=== PATIENT | male | born 1965 | race Caucasian/White ===

== ENCOUNTER 2022-08-27 07:59 | Outpatient (REF) | payer BC, SELFPAY | END 2022-08-27 08:00 | disposition home or self-care (01) | LOC: HO.BBR 07:59 | PROVIDERS: Visit Provider Internal Medicine Hematology & Oncology | DX: Z13.89 Encounter for screening for other disorder (principal) ==

== ENCOUNTER 2022-09-03 07:57 | Outpatient (REF) | payer BC, SELFPAY | END 2022-09-03 07:58 | disposition home or self-care (01) | LOC: HO.BBR 07:57 | PROVIDERS: Visit Provider Internal Medicine Hematology & Oncology | DX: Z13.89 Encounter for screening for other disorder (principal) ==

== ENCOUNTER 2022-09-10 08:04 | Outpatient (REF) | payer BC, SELFPAY | END 2022-09-10 08:05 | disposition home or self-care (01) | LOC: HO.BBR 08:04 | PROVIDERS: Visit Provider Internal Medicine Hematology & Oncology | DX: Z13.89 Encounter for screening for other disorder (principal) ==

== ENCOUNTER 2022-09-17 07:58 | Outpatient (REF) | payer BC, SELFPAY | END 2022-09-17 07:59 | disposition home or self-care (01) | LOC: HO.BBR 07:58 | PROVIDERS: Visit Provider Internal Medicine Hematology & Oncology | DX: Z13.89 Encounter for screening for other disorder (principal) ==

== ENCOUNTER 2022-09-24 07:59 | Outpatient (REF) | payer BC, SELFPAY | END 2022-09-24 08:00 | disposition home or self-care (01) | LOC: HO.BBR 07:59 | PROVIDERS: Visit Provider Internal Medicine Hematology & Oncology | DX: Z13.89 Encounter for screening for other disorder (principal) ==

== ENCOUNTER 2022-10-01 07:58 | Outpatient (REF) | payer BC, SELFPAY | END 2022-10-01 07:59 | disposition home or self-care (01) | LOC: HO.BBR 07:58 | PROVIDERS: Visit Provider Internal Medicine Hematology & Oncology | DX: Z13.89 Encounter for screening for other disorder (principal) ==

== ENCOUNTER 2022-10-15 08:00 | Outpatient (REF) | payer BC, SELFPAY | END 2022-10-15 08:01 | disposition home or self-care (01) | LOC: HO.BBR 08:00 | PROVIDERS: Visit Provider Internal Medicine Hematology & Oncology | DX: Z13.89 Encounter for screening for other disorder (principal) ==

== ENCOUNTER 2022-10-29 08:00 | Outpatient (REF) | payer BC, SELFPAY | END 2022-10-29 08:01 | disposition home or self-care (01) | LOC: HO.BBR 08:00 | PROVIDERS: Visit Provider Internal Medicine Hematology & Oncology | DX: Z13.89 Encounter for screening for other disorder (principal) ==

== ENCOUNTER 2022-11-12 08:01 | Outpatient (REF) | payer BC, SELFPAY | END 2022-11-12 08:02 | disposition home or self-care (01) | LOC: HO.BBR 08:01 | PROVIDERS: Visit Provider Internal Medicine Hematology & Oncology | DX: Z13.89 Encounter for screening for other disorder (principal) ==

== ENCOUNTER 2022-11-26 08:01 | Outpatient (REF) | payer BC, SELFPAY | END 2022-11-26 08:02 | disposition home or self-care (01) | LOC: HO.BBR 08:01 | PROVIDERS: Visit Provider Internal Medicine Hematology & Oncology | DX: Z13.89 Encounter for screening for other disorder (principal) ==

== ENCOUNTER 2022-12-10 10:53 | Outpatient (REF) | payer BC, SELFPAY | END 2022-12-10 10:54 | disposition home or self-care (01) | LOC: HO.BBR 10:53 | PROVIDERS: Visit Provider Internal Medicine Hematology & Oncology | DX: Z13.89 Encounter for screening for other disorder (principal) ==

== ENCOUNTER 2022-12-24 08:37 | Outpatient (REF) | payer BC, SELFPAY | END 2022-12-24 08:38 | disposition home or self-care (01) | LOC: HO.BBR 08:37 | PROVIDERS: Visit Provider Internal Medicine Hematology & Oncology | DX: Z13.89 Encounter for screening for other disorder (principal) ==

== ENCOUNTER 2023-01-07 08:00 | Outpatient (REF) | payer BC, SELFPAY | END 2023-01-07 08:01 | disposition home or self-care (01) | LOC: HO.BBR 08:00 | PROVIDERS: Visit Provider Internal Medicine Hematology & Oncology | DX: Z13.89 Encounter for screening for other disorder (principal) ==

== ENCOUNTER 2023-01-21 07:59 | Outpatient (REF) | payer BC, SELFPAY | END 2023-01-21 08:00 | disposition home or self-care (01) | LOC: HO.BBR 07:59 | PROVIDERS: Visit Provider Internal Medicine Hematology & Oncology | DX: Z13.89 Encounter for screening for other disorder (principal) ==

== ENCOUNTER 2023-03-04 07:57 | Outpatient (REF) | payer BC, SELFPAY | END 2023-03-04 07:58 | disposition home or self-care (01) | LOC: HO.BBR 07:57 | PROVIDERS: Visit Provider Internal Medicine Hematology & Oncology | DX: Z13.89 Encounter for screening for other disorder (principal) ==

== ENCOUNTER 2023-04-15 07:56 | Outpatient (REF) | payer BC, SELFPAY | END 2023-04-15 07:57 | disposition home or self-care (01) | LOC: HO.BBR 07:56 | PROVIDERS: Visit Provider Internal Medicine Hematology & Oncology | DX: Z13.89 Encounter for screening for other disorder (principal) ==

== ENCOUNTER 2023-05-13 08:02 | Outpatient (REF) | payer BC, SELFPAY | END 2023-05-13 08:03 | disposition home or self-care (01) | LOC: HO.BBR 08:02 | PROVIDERS: Visit Provider Internal Medicine Hematology & Oncology | DX: Z13.89 Encounter for screening for other disorder (principal) ==

== ENCOUNTER 2023-06-10 10:54 | Outpatient (REF) | payer BC, SELFPAY | END 2023-06-10 10:55 | disposition home or self-care (01) | LOC: HO.BBR 10:54 | PROVIDERS: Visit Provider Internal Medicine Hematology & Oncology | DX: Z13.89 Encounter for screening for other disorder (principal) ==

== ENCOUNTER 2023-07-15 08:00 | Outpatient (REF) | payer BC, SELFPAY | END 2023-07-15 08:01 | disposition home or self-care (01) | LOC: HO.BBR 08:00 | PROVIDERS: Visit Provider Internal Medicine Hematology & Oncology | DX: Z13.89 Encounter for screening for other disorder (principal) ==

== ENCOUNTER 2023-08-19 08:04 | Outpatient (REF) | payer BC, SELFPAY | END 2023-08-19 08:05 | disposition home or self-care (01) | LOC: HO.BBR 08:04 | PROVIDERS: Visit Provider Internal Medicine Hematology & Oncology | DX: Z13.89 Encounter for screening for other disorder (principal) ==

== ENCOUNTER 2023-09-16 08:05 | Outpatient (REF) | payer BC, SELFPAY | END 2023-09-16 08:06 | disposition home or self-care (01) | LOC: HO.BBR 08:05 | PROVIDERS: Visit Provider Internal Medicine Hematology & Oncology | DX: Z13.89 Encounter for screening for other disorder (principal) ==

== ENCOUNTER 2023-10-14 08:02 | Outpatient (REF) | payer BC, SELFPAY | END 2023-10-14 08:03 | disposition home or self-care (01) | LOC: HO.BBR 08:02 | PROVIDERS: Visit Provider Internal Medicine Hematology & Oncology | DX: Z13.89 Encounter for screening for other disorder (principal) ==

== ENCOUNTER 2023-11-18 09:58 | Outpatient (REF) | payer BC, SELFPAY | END 2023-11-18 09:59 | disposition home or self-care (01) | LOC: HO.BBR 09:58 | PROVIDERS: Visit Provider Internal Medicine Hematology & Oncology | DX: Z13.89 Encounter for screening for other disorder (principal) ==

== ENCOUNTER 2023-12-16 07:59 | Outpatient (REF) | payer BC, SELFPAY | END 2023-12-16 08:00 | disposition home or self-care (01) | LOC: HO.BBR 07:59 | PROVIDERS: Visit Provider Hospitalist | DX: Z13.89 Encounter for screening for other disorder (principal) ==

== ENCOUNTER 2024-01-13 10:06 | Outpatient (REF) | payer BC, SELFPAY | END 2024-01-13 10:07 | disposition home or self-care (01) | LOC: HO.BBR 10:06 | PROVIDERS: Visit Provider Hospitalist | DX: Z13.89 Encounter for screening for other disorder (principal) ==

== ENCOUNTER 2024-02-13 08:09 | Outpatient (REF) | payer BC, SELFPAY | END 2024-02-13 08:10 | disposition home or self-care (01) | LOC: HO.BBR 08:09 | PROVIDERS: Visit Provider Hospitalist | DX: Z13.89 Encounter for screening for other disorder (principal) ==

== ENCOUNTER 2024-03-16 09:53 | Outpatient (REF) | payer BC, SELFPAY | END 2024-03-16 09:54 | disposition home or self-care (01) | LOC: HO.BBR 09:53 | PROVIDERS: Visit Provider Hospitalist | DX: Z13.89 Encounter for screening for other disorder (principal) ==

== ENCOUNTER 2024-04-20 10:56 | Outpatient (REF) | payer BC, SELFPAY | END 2024-04-20 10:57 | disposition home or self-care (01) | LOC: HO.BBR 10:56 | PROVIDERS: Visit Provider Hospitalist | DX: Z13.89 Encounter for screening for other disorder (principal) ==

== ENCOUNTER 2024-05-18 09:59 | Outpatient (REF) | payer BC, SELFPAY | END 2024-05-18 10:00 | disposition home or self-care (01) | LOC: HO.BBR 09:59 | PROVIDERS: Visit Provider Hospitalist | DX: Z13.89 Encounter for screening for other disorder (principal) ==

== ENCOUNTER 2024-06-15 08:12 | Outpatient (REF) | payer BC, SELFPAY | END 2024-06-15 08:13 | disposition home or self-care (01) | LOC: HO.BBR 08:12 | PROVIDERS: Visit Provider Hospitalist | DX: Z13.89 Encounter for screening for other disorder (principal) ==

== ENCOUNTER 2024-07-13 08:04 | Outpatient (REF) | payer BC, SELFPAY | END 2024-07-13 08:05 | disposition home or self-care (01) | LOC: HO.BBR 08:04 | PROVIDERS: Visit Provider Hospitalist | DX: Z13.89 Encounter for screening for other disorder (principal) ==

== ENCOUNTER 2024-08-10 09:10 | Outpatient (REF) | payer BC, SELFPAY | END 2024-08-10 09:11 | disposition home or self-care (01) | LOC: HO.BBR 09:10 | PROVIDERS: Visit Provider Hospitalist | DX: Z13.89 Encounter for screening for other disorder (principal) ==

== ENCOUNTER 2024-09-07 08:06 | Outpatient (REF) | payer BC, SELFPAY ==
--- OUTSIDE RECORDS SUMMARY | 2024-09-07 08:08 | XMS_ITS | Data Portability ---
Author Organization [facility], Main Office Address [address] [place] [address] [place] [id number] Care Team Providers Care Early Childhood Education Instructor Name Role Phone KATIE GARCIA Primary Care Provider [phone] KATINA ROBERTS Contact Manager REINALDO SOL Junior Administrative Assistant [phone] PRASANTH POND Traffic Analyst UNIQUE JOHNSON Software Engineer Web Services Assessment No assessment recorded. Plan of Treatment Reminders Order Date Submit Date Provider Last Modified By Organization Details Last Modified Time Details Appointments PE EST 2024 08:45A M Katie Garcia PAGenie Not available Not available Not available Lab HbA1c (hemog lobin A1c), blood 2024 025 pmadden [facility], [address], [address], 09/05/2024 16:37:57 BMP, serum or plasma 2024 025 pmadden [facility], [facility] [address], [address], 09/05/2024 16:37:57 rapid SARS CoV 2 Ag, QL IA, respir atory specim en 2023 024 pmadden In-Office Order, Internal Use Only DO Not Attach Compendium DO Not Attach Compendium, Do Not Delete/merge, [id number] 07/11/2024 12:04:23 rapid flu (A+B) 2023 024 MIRIAN In-Office Order, Internal Use Only DO Not Attach Compendium DO Not Attach Compendium, Do Not Delete/merge, [id number] 07/11/2024 12:13:24 HbA1c (hemog lobin A1c), blood 2023 024 [facility], [address], [place], [address], 07/03/2024 14:06:52 PSA, total, serum or plasma 2023 024 [facility], [address], [address], [place], [address], 07/03/2024 14:06:53 lipid panel, serum 2023 024 [facility], [address], [address], [place], [address], 07/03/2024 14:06:51 CMP, serum or plasma 2023 024 [facility], [address], [place], [address], 07/03/2024 14:06:50 CBC w/ auto diff 2023 024 [facility], [address], [place], [address], 07/03/2024 14:06:49 Referral otolar yngolo gist referr al 2023 024 [facility] , [address], [address], [place], [address], 08/13/2024 08:19:13 nutrit ionist /dieti sarbjit referr al 2023 024 [email or web address] Not available 03/05/2024 10:02:15 Procedures None record ed. Surgeries None record ed. Imaging US, echoca rdiogr am - please compar e c cardia c mri 3.6.23 2024 025 pmadden Not available 09/06/2024 13:58:53 Medication Orders amoxic illin 875 mg-pot assium clavul anate 125 mg tablet 2023 025 [facility]acy #[id number], [address] [place], [address], 09/05/2024 16:10:07 lansop razole 30 mg capsul e,renuka yed releas e 2023 024 [email or web address] Not available 09/29/2023 14:43:10 lisino pril 5 mg tablet 2022 023 [facility]arm[facility] #[id number], [address] [place], [address], 03/24/2023 16:31:04 lansop razole 30 mg capsul e,renuka yed releas e 2022 023 [email or web address] Not available 03/25/2023 08:34:52 Patient Targets Encounter Date Encounter Id Patient Goals Patient Target Last Modified By Organization Details Last Modified Time 03/24/2023 [id number] 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 and to monitor dietary sodium. Will monitor home blood pressures and bring readings to appointments. Patient preferences and goals incorporated in plan and updated/modified as needed to reflect progress toward goal.Pt agrees to follow low fat diet, avoid saturated fats , decrease carbohydrate intake to 45 - 50 gm per meal , pt agrees to develop a regular pattern of exercise such as walking 30 minutes a day 3 times a week, Pt will keep a record of exercise and activity level Patient preferences and goals incorporated in plan and updated/modified as needed to reflect progress toward goal. 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 and to monitor dietary sodium. Will monitor home blood pressures and bring readings to appointments. Patient preferences and goals incorporated in plan and updated/modified as needed to reflect progress toward goal.Pt agrees to follow low fat diet, avoid saturated fats , decrease carbohydrate intake to 45 - 50 gm per meal , pt agrees to develop a regular pattern of exercise such as walking 30 minutes a day 3 times a week, Pt will keep a record of exercise and activity level Patient preferences and goals incorporated in plan and updated/modified as needed to reflect progress toward goal. 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 Loss % 5 Not available Not available Not available Ongoing of LDL Direct <100 Not available Not available Not available Ongoing of LDL Direct yearly Not available Not available Not available Pt agrees to follow low fat diet, avoid saturated fats , decrease carbohydrate intake to 45 - 50 gm per meal , pt agrees to develop a regular pattern of exercise such as walking 30 minutes a day 3 times a week, Pt will keep a record of exercise and activity level Patient preferences and goals incorporated in plan and updated/modified as needed to reflect progress toward goal.Pt advised and agrees to eat a low salt low fat diet; to do moderate exercise (such as walking) 150 minutes per week; to limit alcohol intake (goal of 2 drinks per day or less for men or 1 for woman). and to monitor dietary sodium. Will monitor home blood pressures and bring readings to appointments. Patient preferences and goals incorporated in plan and updated/modified as needed to reflect progress toward goal.Pt advised and agrees to work on self-monitoring behaviors; begin an appropriate diet for weight loss (such as a low carbohydrate diet), to do moderate exercise (such as walking) for approximately 150 minutes per week; and to identify desirable and timely rewards that will reinforce achievement of specific weight loss goals. pmadden Not available 03/05/2024 09:28:32 09/05/2024 [id number] penitentiary goal of Blood Pressure 140 / 90 Not available Not available Not available penitentiary goal of Exercise level Not available Not available Not available penitentiary goal of Tobacco Smoking Status Not available Not available Not available Ongoing of LDL Direct <100 Not available Not available Not available Ongoing of LDL Direct yearly Not available Not available Not available Pt advised and agrees to eat a low salt low fat diet; to do moderate exercise (such as walking) 150 minutes per week; to limit alcohol intake (goal of 2 drinks per day or less for men or 1 for woman). and to monitor dietary sodium. Will monitor home blood pressures and bring readings to appointments. Patient preferences and goals incorporated in plan and updated/modified as needed to reflect progress toward goal.Pt agrees to follow low fat diet, avoid saturated fats , decrease carbohydrate intake to 45 - 50 gm per meal , pt agrees to develop a regular pattern of exercise such as walking 30 minutes a day 3 times a week, Pt will keep a record of exercise and activity level Patient preferences and goals incorporated in plan and updated/modified as needed to reflect progress toward goal. pmadden Not available 09/05/2024 20:38:17 Patient Instructions Encounter Date Encounter Id Patient Instructions Last Modified By Organization Details Last Modified Time 03/24/2023 [id number] high blood pressure: care instructions pmadden Not available 03/24/2023 16:35:00 dash diet: care instructions pmadden Not available 03/24/2023 16:35:00 low sodium diet (2,000 milligram): care instructions pmadden Not available 03/24/2023 16:35:00 encouraged pt to check outstanding labs as directed Medications (OTC, herbal therapies, supplements) reviewed and reconciled with patient and or caregiver, including potential side effects, drug interactions, instructions, and the consequences of not taking medication. Reviewed potential barriers to medication adherence, such as side effects from medication or cost of medication. pmadden Not available 03/24/2023 17:01:13 09/28/2023 [id number] Medications (OTC , herbal therapies, supplements) reviewed and reconciled with patient and or caregiver, including potential side effects, drug interactions, instructions, and the consequences of not taking medication. Reviewed potential barriers to medication adherence, such as side effects from medication or cost of medication. pmadden Not available 09/28/2023 17:20:36 03/05/2024 [id number] Prostate Cancer Screening pmadden Not available 03/05/2024 09:29:40 Well Visit 50 to 65: Care Instructions pmadden Not available 03/05/2024 09:29:41 starting a weigh t loss plan: care instructions pmadden Not available 03/05/2024 09:29:41 Nutrition Referral and Weight Management Follow-up Information pmadden Not available 03/05/2024 09:29:41 Medications (OTC , herbal therapies, supplements) reviewed and reconciled with patient and or caregiver, including potential side effects, drug interactions, instructions, and the consequences of not taking medication. Reviewed potential barriers to medication adherence, such as side effects from medication or cost of medication. pmadden Not available 03/05/2024 09:29:04 07/11/2024 [id number] Acute Sinusitis: Care Instructions pmadden Not available 07/11/2024 12:37:21 saline nasal washes: care instructions pmadden Not available 07/11/2024 12:37:21 eustachian tube problems: care instructions pmadden Not available 07/11/2024 12:37:21 Follow up if no improvement or if symptoms worsen. pmadden Not available 07/11/2024 13:16:38 09/05/2024 [id number] Medications (OTC , herbal therapies, supplements) reviewed and reconciled with patient and or caregiver, including potential side effects, drug interactions, instructions, and the consequences of not taking medication. Reviewed potential barriers to medication adherence, such as side effects from medication or cost of medication. 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 for Body mass index 30+ - obesity Referring Physician: Katie Garcia, Internal Medicine, Encounter Date: 03/05/2024 All Source Intelligence Analyst Referral fo r Deviated nasal septum Referring Physician: Katie Garcia, Internal Medicine, Encounter Date: 07/11/2024 Results Created Date Observation Date Name Description Value Unit Range Abnormal Flag Note LastModifiedBy Organization Detail LastModifiedTime 09/24/19 24 09/24/2023 LIPID PANEL results Ana Luisa ash Order Not Available [facility] [address] [place], [address], 09/24/2023 07:28:25 09/24/19 24 09/24/2023 COMPR EHENS CINDY METAB OLIC PANL glucose 111 mg/dL (70-99 ) high Not Available [facility] [address] [place], [address], 09/24/2023 09:22:44 09/24/19 24 09/24/2023 COMPR EHENS CINDY METAB OLIC PANL BUN 22 mg/dL (6-20) high Not Available [facility] [address] [place], [address], 09/24/2023 09:22:44 09/24/19 24 09/24/2023 COMPR EHENS CINDY METAB OLIC PANL creatinine 1.2 mg/dL (0.7-1 .2) Not Available [facility] [address] [place], [address], 09/24/2023 09:22:44 09/24/19 24 09/24/2023 COMPR EHENS CINDY METAB OLIC PANL sodium 143 mmol/ L (133-1 45) Not Available [facility] [address] [place], [address], 09/24/2023 09:22:44 09/24/19 24 09/24/2023 COMPR EHENS CINDY METAB OLIC PANL potassium 4.2 mmol/ L (3.6-5 .2) Not Available [facility] [address] [place], [address], 09/24/2023 09:22:44 09/24/19 24 09/24/2023 COMPR EHENS CINDY METAB OLIC PANL chloride 108 mmol/ L (98-10 7) high Not Available [facility] [address] [place], [address], 09/24/2023 09:22:44 09/24/19 24 09/24/2023 COMPR EHENS CINDY METAB OLIC PANL bicarbonate 22 mmol/ L (22-29 ) Not Available [facility] [address] [place], [address], 09/24/2023 09:22:44 09/24/19 24 09/24/2023 COMPR EHENS CINDY METAB OLIC PANL anion gap 13 (4-17) Not Available [facility] [address] [place], [address], 09/24/2023 09:22:44 09/24/19 24 09/24/2023 COMPR EHENS CINDY METAB OLIC PANL albumin 4.4 gm/dL (3.4-4 .8) Not Available [facility] [address] [place], [address], 09/24/2023 09:22:44 09/24/19 24 09/24/2023 COMPR EHENS CINDY METAB OLIC PANL calcium 9.6 mg/dL (8.6-1 0.5) Not Available [facility] [address] [place], [address], 09/24/2023 09:22:44 09/24/19 24 09/24/2023 COMPR EHENS CINDY METAB OLIC PANL bilirubin,to moy 0.7 mg/dL (0-1.2 ) Not Available [facility] [address] [place], [address], 09/24/2023 09:22:44 09/24/19 24 09/24/2023 COMPR EHENS CINDY METAB OLIC PANL total protein 6.9 gm/dL (6.2-8 .2) Not Available [facility] [address] [place], [address], 09/24/2023 09:22:44 09/24/19 24 09/24/2023 COMPR EHENS CINDY METAB OLIC PANL Ag ratio 1.8 Not Available [facility] [address] [place], [address], 09/24/2023 09:22:44 09/24/19 24 09/24/2023 COMPR EHENS CINDY METAB OLIC PANL AST 18 U/L (0-40) Not Available [facility] [address], [address], 09/24/2023 09:22:44 09/24/19 24 09/24/2023 COMPR EHENS CINDY METAB OLIC PANL alk phos 105 U/L (40-12 9) Not Available [facility] [address] [place], [address], 09/24/2023 09:22:44 09/24/19 24 09/24/2023 COMPR EHENS CINDY METAB OLIC PANL ALT 19 U/L (0-41) Not Available [facility] [address] [place], [address], 09/24/2023 09:22:44 09/24/19 24 09/24/2023 COMPR EHENS CINDY METAB OLIC PANL estimated GFR creatinine 71 mL/mi n/1.7 3_M2 Creat inine based estim ated glome rular filtr ation (eGFR ) in adult s is calcu lated using the Natio nal Kidne y Found ation recom brandy d 2020 CKD-E PI equat ion. Estim ates GFR from serum creat inine , age and sex. Not Available [facility] [address] [place], [address], 09/24/2023 09:22:44 09/24/19 24 09/24/2023 LIPID PANEL cholesterol, total 168 mg/dL (<200) Not Available [facility] [address] [place], [address], 09/24/2023 09:22:45 09/24/19 24 09/24/2023 LIPID PANEL triglyceride 71 mg/dL (<150) Not Available [facility] [address] [place], [address], 09/24/2023 09:22:45 09/24/19 24 09/24/2023 LIPID PANEL HDL chol 40 mg/dL (>39) Not Available [facility] [address] [place], [address], 09/24/2023 09:22:45 09/24/19 24 09/24/2023 LIPID PANEL LDL cholesterol, calculated 114 mg/dL (0-130 ) Not Available [facility] [address] [place], [address], 09/24/2023 09:22:45 09/24/19 24 09/24/2023 LIPID PANEL non HDL cholesterol (calc) 128 mg/dL (<160) Not Available [facility] [address] [place], [address], 09/24/2023 09:22:45 09/24/19 24 09/24/2023 CK,TO MOY ONLY CK,total only 108 U/L (0-310 ) Not Available [facility] [address] [place], [address], 09/24/2023 09:22:46 09/24/19 24 09/24/2023 HEMOG LOBIN A1C hemoglobin A1C 5.3 % (4.0-5 .6) MONIT ORING : In known diabe tic patie nts, hemog lobin A1c targe ts shoul d be discu ssed with healt h care provi carole. DIAGN OSTIC USE: The Ameri can Diabe cat Assoc iatio n (ADA) and the World Healt h Organ izati on (WHO) recom mend the use of HbA1c to diagn ose diabe cat using a thres hold of 6.5%. Patie nts who have an HbA1c betwe en 5.7% and 6.4% are consi dered at incre ased risk for devel oping diabe cat in the futur e. CAUTI ON: False ly low HbA1c resul ts may be obser alex in patie nts with hemol ytic anemi a, homoz ygous forms of abnor mal hemog lobin (e.g. SS, CC, SC), pregn susan, recen t blood loss or hemog lobin F great er than 7%. Fruct osami ne may be used as an alter estefanía test in these cases . REFER ENCE: ADA: Stand ards of Medic al Care in Diabe cat 2019, The Journ al of Clini tyler and Appli ed Resea rch and Educa tion Volum e 43, Suppl ement 1 Not Available [facility] [address], [place], [address], 09/24/2023 10:29:34 07/01/20 24 07/02/2024 CBC WITH DIFFE RENTI AL/PL ATELE T WBC 5.9 x10e3 /uL 3.4-10 .8 normal Not Available [facility] ([facility]) [address] [place], [address], 07/03/2024 14:06:49 07/01/20 24 07/02/2024 CBC WITH DIFFE RENTI AL/PL ATELE T RBC 4.40 x10e6 /uL 4.14-5 .80 normal Not Available [facility] ([facility]) [address] [place], [address], 07/03/2024 14:06:49 07/01/20 24 07/02/2024 CBC WITH DIFFE RENTI AL/PL ATELE T hemoglobin 12.3 g/dL 13.0-1 7.7 below low normal Not Available [facility] ([facility]) [address] [place], [address], 07/03/2024 14:06:49 07/01/20 24 07/02/2024 CBC WITH DIFFE RENTI AL/PL ATELE T hematocrit 38.3 % 37.5-5 1.0 normal Not Available [facility] ([facility]) [address] [place], [address], 07/03/2024 14:06:49 07/01/20 24 07/02/2024 CBC WITH DIFFE RENTI AL/PL ATELE T MCV 87 fL 79-97 normal Not Available [facility] ([facility]) [address] [facility], [place], [address], 07/03/2024 14:06:49 07/01/20 24 07/02/2024 CBC WITH DIFFE RENTI AL/PL ATELE T MCH 28.0 pg 26.6-3 3.0 normal Not Available [facility] ([facility]) [address] [facility], [place], [address], 07/03/2024 14:06:49 07/01/20 24 07/02/2024 CBC WITH DIFFE RENTI AL/PL ATELE T MCHC 32.1 g/dL 31.5-3 5.7 normal Not Available [facility] ([facility]) [address] [facility], [place], [address], 07/03/2024 14:06:49 07/01/20 24 07/02/2024 CBC WITH DIFFE RENTI AL/PL ATELE T RDW 13.1 % 11.6-1 5.4 Not Available [facility] ([facility]) [address] [facility], [place], [address], 07/03/2024 14:06:49 07/01/20 24 07/02/2024 CBC WITH DIFFE RENTI AL/PL ATELE T platelets 323 x10e3 /uL 150-45 0 normal Not Available [facility] ([facility]) [address] [facility], [place], [address], 07/03/2024 14:06:49 07/01/20 24 07/02/2024 CBC WITH DIFFE RENTI AL/PL ATELE T neutrophils 60 % not estab. normal Not Available [facility] ([facility]) [address] [facility], [place], [address], 07/03/2024 14:06:49 12/08/20 24 07/02/2024 CBC WITH DIFFE RENTI AL/PL ATELE T lymphs 29 % not estab. normal Not Available [facility] ([facility]) [address] [facility], [place], [address], 07/03/2024 14:06:49 07/01/20 24 07/02/2024 CBC WITH DIFFE RENTI AL/PL ATELE T monocytes 5 % not estab. normal Not Available [facility] ([facility]) [address] [facility], [place], [address], 07/03/2024 14:06:49 07/01/20 24 07/02/2024 CBC WITH DIFFE RENTI AL/PL ATELE T eos 4 % not estab. normal Not Available [facility] ([facility]) [address] [facility], [place], [address], 07/03/2024 14:06:49 07/01/20 24 07/02/2024 CBC WITH DIFFE RENTI AL/PL ATELE T basos 1 % not estab. normal Not Available [facility] ([facility]) [address] [facility], [place], [address], 07/03/2024 14:06:49 07/01/20 24 07/02/2024 CBC WITH DIFFE RENTI AL/PL ATELE T immature cells PROGRAM EVALUATION CONSULTANT Not Available [facility] ([facility]) [address] [facility], [place], [address], 07/03/2024 14:06:49 07/01/20 24 07/02/2024 CBC WITH DIFFE RENTI AL/PL ATELE T neutrophils (absolute) 3.6 x10e3 /uL 1.4-7. 0 normal Not Available [facility] ([facility]) [address] [facility], [place], [address], 07/03/2024 14:06:49 07/01/20 24 07/02/2024 CBC WITH DIFFE RENTI AL/PL ATELE T lymphs (absolute) 1.7 x10e3 /uL 0.7-3. 1 normal Not Available [facility] ([facility]) [address] [facility], [place], [address], 07/03/2024 14:06:49 07/01/20 24 07/02/2024 CBC WITH DIFFE RENTI AL/PL ATELE T monocytes(ab solute) 0.3 x10e3 /uL 0.1-0. 9 normal Not Available [facility] ([facility]) [address] [facility], [place], [address], 07/03/2024 14:06:49 07/01/20 24 07/02/2024 CBC WITH DIFFE RENTI AL/PL ATELE T eos (absolute) 0.2 x10e3 /uL 0.0-0. 4 normal Not Available [facility] ([facility]) [address] [facility], [place], [address], 07/03/2024 14:06:49 07/01/20 24 07/02/2024 CBC WITH DIFFE RENTI AL/PL ATELE T baso (absolute) 0.0 x10e3 /uL 0.0-0. 2 normal Not Available [facility] ([facility]) [address] [facility], [place], [address], 07/03/2024 14:06:49 07/01/20 24 07/02/2024 CBC WITH DIFFE RENTI AL/PL ATELE T immature granulocytes 1 % not estab. Not Available [facility] ([facility]) [address] [place], [address], 07/03/2024 14:06:49 07/01/20 24 07/02/2024 CBC WITH DIFFE RENTI AL/PL ATELE T immature grans (abs) 0.1 x10e3 /uL 0.0-0. 1 Not Available [facility] ([facility]) [address] [place], [address], 07/03/2024 14:06:49 07/01/20 24 07/02/2024 CBC WITH DIFFE RENTI AL/PL ATELE T NRBC PROGRAM EVALUATION CONSULTANT Not Available [facility] ([facility]) [address] [facility], [place], [address], 07/03/2024 14:06:49 07/01/20 24 07/02/2024 CBC WITH DIFFE RENTI AL/PL ATELE T hematology comments: PROGRAM EVALUATION CONSULTANT Not Available [facility] ([facility]) [address] [facility], [place], [address], 07/03/2024 14:06:49 07/01/20 24 07/03/2024 COMP. METAB OLIC PANEL (14) glucose 108 mg/dL 70-99 above high normal Not Available [facility] ([facility]) [address] [facility], [place], [address], 07/03/2024 14:06:50 07/01/20 24 07/03/2024 COMP. METAB OLIC PANEL (14) BUN 20 mg/dL 6-24 normal Not Available [facility] ([facility]) [address] [facility], [place], [address], 07/03/2024 14:06:50 07/01/20 24 07/03/2024 COMP. METAB OLIC PANEL (14) creatinine 1.17 mg/dL 0.76-1 .27 normal Not Available [facility] ([facility]) [address] [facility], [place], [address], 07/03/2024 14:06:50 07/01/20 24 07/03/2024 COMP. METAB OLIC PANEL (14) eGFR 72 mL/mi n/1.7 3 >59 normal Not Available [facility] ([facility]) [address] [facility], [place], [address], 07/03/2024 14:06:50 07/01/20 24 07/03/2024 COMP. METAB OLIC PANEL (14) BUN/creatini ne ratio 17 9-20 normal Not Available [facility] ([facility]) [address] [place], [address], 07/03/2024 14:06:50 07/01/20 24 07/03/2024 COMP. METAB OLIC PANEL (14) sodium 140 mmol/ L 134-14 4 normal Not Available [facility] ([facility]) [address] [place] [place], [address], 07/03/2024 14:06:50 07/01/20 24 07/03/2024 COMP. METAB OLIC PANEL (14) potassium 4.6 mmol/ L 3.5-5. 2 normal Not Available [facility] ([facility]) [address] [place], [address], 07/03/2024 14:06:50 07/01/20 24 07/03/2024 COMP. METAB OLIC PANEL (14) chloride 105 mmol/ L 96-106 normal Not Available [facility] ([facility]) [address] [place], [address], 07/03/2024 14:06:50 07/01/20 24 07/03/2024 COMP. METAB OLIC PANEL (14) carbon dioxide, total 23 mmol/ L 20-29 normal Not Available [facility] ([facility]) [address] [facility] [place], [address], 07/03/2024 14:06:50 07/01/20 24 07/03/2024 COMP. METAB OLIC PANEL (14) calcium 9.2 mg/dL 8.7-10 .2 normal Not Available [facility] ([facility]) [address] [place] [place], [address], 07/03/2024 14:06:50 07/01/20 24 07/03/2024 COMP. METAB OLIC PANEL (14) protein, total 6.8 g/dL 6.0-8. 5 normal Not Available [facility] ([facility]) [address] [facility] [place], [address], 07/03/2024 14:06:50 07/01/20 24 07/03/2024 COMP. METAB OLIC PANEL (14) albumin 4.0 g/dL 3.8-4. 9 normal Not Available [facility] ([facility]) [address] [place], [address], 07/03/2024 14:06:50 07/01/20 24 07/03/2024 COMP. METAB OLIC PANEL (14) globulin, total 2.8 g/dL 1.5-4. 5 Not Available [facility] ([facility]) [address] [facility] [place], [address], 07/03/2024 14:06:50 07/01/20 24 07/03/2024 COMP. METAB OLIC PANEL (14) bilirubin, total 0.3 mg/dL 0.0-1. 2 normal Not Available [facility] ([facility]) [address] [facility], [place], [address], 07/03/2024 14:06:50 07/01/20 24 07/03/2024 COMP. METAB OLIC PANEL (14) alkaline phosphatase 103 IU/L 44-121 normal Not Available [facility] ([facility]) [address] [place], [address], 07/03/2024 14:06:50 07/01/20 24 07/03/2024 COMP. METAB OLIC PANEL (14) AST (SGOT) 17 IU/L 0-40 normal Not Available [facility] ([facility]) [address] [place], [address], 07/03/2024 14:06:50 07/01/20 24 07/03/2024 COMP. METAB OLIC PANEL (14) ALT (SGPT) 15 IU/L 0-44 normal Not Available [facility] ([facility]) [address] [place], [address], 07/03/2024 14:06:50 07/01/20 24 07/03/2024 LIPID PANEL cholesterol, total 142 mg/dL 100-19 9 normal Not Available [facility] ([facility]) [address] [place], [address], 07/03/2024 14:06:51 07/01/20 24 07/03/2024 LIPID PANEL triglyceride s 55 mg/dL 0-149 normal Not Available [facility] ([facility]) [address] [place], [address], 07/03/2024 14:06:51 07/01/20 24 07/03/2024 LIPID PANEL HDL cholesterol 36 mg/dL >39 below low normal Not Available [facility] ([facility]) [address] [place], [address], 07/03/2024 14:06:51 07/01/20 24 07/03/2024 LIPID PANEL VLDL cholesterol tyler 12 mg/dL 5-40 Not Available [facility] ([facility]) [address] [place], [address], 07/03/2024 14:06:51 07/01/20 24 07/03/2024 LIPID PANEL LDL chol calc ([facility]) 94 mg/dL 0-99 Not Available [facility] ([facility]) [address] [place], [address], 07/03/2024 14:06:51 07/01/20 24 07/03/2024 LIPID PANEL LDL calc comment: 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 6 normal Predi abete s: 5.7 - 6.4 Diabe cat: >6.4 Glyce ivet contr ol for adult s with diabe cat: <7.0 Not Available [facility] ([facility]) [address] [facility], [place], [address], 07/03/2024 14:06:52 07/01/20 24 07/03/2024 PROST ATE-S PECIF IC AG prostate specific Ag 1.0 NG/mL 0.0-4. 0 normal René ECLIA metho dolog y. Accor ding to the Ameri can [employer] g[employer] iatio n, Serum PSA shoul d decre ase and remai n at undet ectab le level s after radic al prost atect adelita. The AUA defin es bioch emica l recur rence as an initi al PSA value 0.2 ng/mL or great er follo wed by a subse quent confi rmato ry PSA value 0.2 ng/mL or great er. Value s obtai bi with diffe rent assay metho ds or kits canno t be used inter nicholas ct . Resul ts canno t be inter prete d as absol garth evide nce of the prese nce or absen ce of sunshine bourgeois se. Not Available [facility] ([facility]) [address] [facility], [place], [address], 07/03/2024 14:06:53 07/11/20 24 07/11/2024 rapid flu (A+B) Flu A negati ve Not Available In-Office Order Internal Use Only DO Not Attach Compendium DO Not Attach Compendium, Do Not Delete/merge, [id number] 07/11/2024 11:40:25 07/11/20 24 07/11/2024 rapid flu (A+B) Flu B negati ve Not Available In-Office Order Internal Use Only DO Not Attach Compendium DO Not Attach Compendium, Do Not Delete/merge, [id number] 07/11/2024 11:40:25 07/11/20 24 07/11/2024 rapid SARS CoV 2 Ag, QL IA, respi rator y speci men RAPID SARS COV 2 negati ve Not Available In-Office Order Internal Use Only DO Not Attach Compendium DO Not Attach Compendium, Do Not Delete/merge, [id number] 07/11/2024 11:40:03 Result Notes None recorded. Problems Name Problem SNOMED Code Status Onset Date Resolution Date Notes Provider Name and Address Organization Details Recorded Time Adult health examinat ion Completed 201202/12/2014 RECORDED 05/22/20 13 4:02PM BY NATASHA OHARA MA, FRANCISCO J ON/ADDEN DUM Pamela orantes [facility] 6 14:59:31 Dependen ce on enabling machine or device [id number] Completed 201304/11/2017 BiPAP machine at bedtime FARAZ Solorzano [facility] 7 09:36:26 Conjunct ivitis 6175788 Completed 201102/12/2014 RECORDED 02/29/20 12 4:20PM BY EDUIN LOVE MA, ANNOTATI ON/ADDEN DUM Pamela orantes [facility] 6 14:59:31 Gastroes ophageal reflux disease 873708546 Active 2012 STORY: TREATMEN T FAILURE WITH OMEPRAZO LE. STABLE ON PREVACID FARAZ Solorzano, [facility] 6 09:20:40 [facility] hyperten arlin 22812810 Active 2012 Pamela orantes [facility] 6 14:59:31 Malaise and fatigue 389818870 Completed 201102/12/2014 RECORDED 02/29/20 12 4:20PM BY EDUIN LOVE MA, ANNOTATI ON/ADDEN DUM Pamela orantes [facility] 6 14:59:31 Hyperlip idemia 68680286 Active 2012 5.19 - ascvd risk of 6.2% // 11.20 - 9.6% Katie Garcia PA-C [address] [facility] [address], [place], [address] , [facility] 0 17:04:54 Influenz a vaccine needed [id number] 06 Completed 201002/12/2014 DATE: 08/18/19 11; RECORDED 02/29/20 12 4:20PM BY EDUIN LOVE MA, ANNOTATI ON/ADDEN DUM Pamela orantes [facility] 6 14:59:31 Administ ration of bacteria l and viral vaccine Completed 200802/12/2014 RECORDED 04/14/20 09 9:17AM BY EDUIN LOVE MA, OFFICE VISIT Pamela orantes [facility] 6 14:59:31 Obesity 518693978 Active 2012 Pamela orantes [facility] 6 14:59:31 Obstruct cindy sleep apnea syndrome 74481495 Active 2012 Pamela orantes [facility] 6 14:59:31 Osteoart hritis 162496570 Active 2012 Pamela orantes [facility] 6 14:59:31 Referred otalgia 69688797 Completed 201102/12/2014 RECORDED 02/29/20 12 4:20PM BY EDUIN LOVE MA, ANNOTATI ON/ADDEN DUM Pamela orantes [facility] 6 14:59:31 Screenin g for malignan t neoplasm of colon Completed 201102/12/2014 RECORDED 02/29/20 12 4:20PM BY EDUIN LOVE MA, ANNOTATI ON/ADDEN DUM Pamela orantes [facility] 6 14:59:31 Adult health examinat ion Completed 201203/04/2014 RECORDED 05/22/20 13 4:02PM BY NATASHA OHARA MA, ANNOTATI ON/ADDEN DUM Pamela Musa null, [facility] 6 14:59:31 Conjunct ivitis 4528824 Completed 201103/04/2014 RECORDED 02/29/20 12 4:20PM BY EDUIN LOVE MA, ANNOTATI ON/ADDEN DUM Pamela Musa null, [facility] 6 14:59:31 Malaise and fatigue 205774716 Completed 201103/04/2014 RECORDED 02/29/20 12 4:20PM BY EDUIN LOVE MA, ANNOTATI ON/ADDEN DUM Pamela Musa null, [facility] 6 14:59:31 Influenz a vaccine needed [id number] 06 Completed 201003/04/2014 DATE: 08/18/19 11; RECORDED 02/29/20 12 4:20PM BY EDUIN LOVE MA, ANNOTJING ON/ADDEN DUM Pamela Musa null, [facility] 6 14:59:31 Administ ration of bacteria l and viral vaccine Completed 200803/04/2014 RECORDED 04/14/20 09 9:17AM BY EDUIN LOVE MA, OFFICE VISIT Pamela orantes, [facility] 6 14:59:31 Referred otalgia 05888368 Completed 201103/04/2014 RECORDED 02/29/20 12 4:20PM BY EDUIN LOVE MA, ANNOTJING ON/ADDEN DUM Pamela Musa null, [facility] 6 14:59:31 Screenin g for malignan t neoplasm of colon Completed 201103/04/2014 RECORDED 02/29/20 12 4:20PM BY EDUIN LOVE MA, ANNOTJING ON/ADDEN DUM Pamela Musa null, [facility] 6 14:59:31 Body mass index 30+ - obesity 444123429 Completed 06/13/2019 Removal Reason: dx changed Adela Zapien null, [facility] 9 15:51:20 Tinea pedis 3889531 Active Pamela Musa null, [facility] 6 14:59:31 Allergic rhinitis 21859142 Active Pamela Lencho null, [facility] 6 14:59:31 Dependen ce on biphasic positive airway pressure ventilat ion 698974124 Active 2013 bi-PAP machine Eduin Choco-Faraz guadarrama MA null, [facility] 7 09:36:48 Serum ferritin above referenc e range 299344304 Completed 202003/05/2024 Katie Garcia PA-C [address], [place], [address] , [facility] 4 09:24:56 Hemochro matosis 231689489 Active 2020 Katie Garcia PA-C [address], [place], [address] , [facility] 1 13:13:24 Eczema 64268335 Active 2021 Katie Garcia PA-C [address], [place], [address] , [facility] 2 11:12:49 History of polyp of colon 439394435 Active 2022 Katie Garcia PA-C [address], [place], [address] , [facility] 3 15:57:39 Deviated nasal septum 661368668 Active 2024 Katie Garcia PA-C [address], [place], [address] , [facility] 5 16:19:23 Impaired fasting glycemia 188763703 Active 2024 Katie Garcia PA-C [address], [place], [address] , [facility] 5 16:24:29 Heart murmur 99784002 Active 2024 Katie Garcia PA-C [address], [place], [address] , [facility] 5 16:33:00 Problem Notes None recorded. Procedures Surgical History Date Name Laterality Status Provider Name and Address Organization Details Recorded Time 2 Colonoscopy completed Pamela Musa [facility] 01/05/2022 15:11:44 1 EGD completed Pamela Musa [facility] 09/17/2020 09:36:11 Imaging Results None recorded. Procedure Notes None recorded. Medical Equipment None Reported. Allergies No known drug allergies Medications Name Sig Start Date Stop Date Status Note LastModified by Organization Details LastModified Time cyclobenz aprine 10 mg tablet TAKE 1 TABLET BY MOUTH THREE TIMES A DAY NEEDED FOR 7 DAYS 02/23 completed Not Available Not Available Not Available prednison e 10 mg tablet 4 tabs x 2 days , 3 tabs x 2 days, 2 tabs x 2days, 1 tab x 2 days 06/09 completed Not Available Not Available Not Available doxycycli ne hyclate 100 mg capsule TAKE 1 CAPSULE BY MOUTH TWICE A DAY WITH FOOD AND WATER 02/03 completed Not Available Not Available Not Available atenolol 100 mg tablet TAKE 1 TABLET DAILY 05/13 completed Not Available Not Available Not Available valacyclo vir 1 gram tablet TAKE 2 TABLETS BY MOUTH TWICE DAILY FOR 1 DAY FOR FLARES NEEDED 03/24 completed Not Available Not Available Not Available fluconazo le 200 mg tablet Take 2 tablets every week by oral route for 56 days. 08/31 completed Not Available Not Available Not Available metoprolo l succinate ER 200 mg tablet,ex tended release 24 hr Take 1 tablet every day by oral route for 90 days. 11/06 completed Not Available Not Available Not Available metoprolo l succinate ER 100 mg tablet,ex tended release 24 hr Take 1 tablet every day by oral route for 90 days. 06/[address] of atenolol due to shortage , but pt will use mail order pharmacy Not Available Not Available Not Available permethri n 5 % topical cream APPLY (THOROUG HLY MASSAGE INTO SKIN FROM HEAD TO SOLES OF FEET) BY TOPICAL ROUTE ONCE LEAVE ON FOR 8-14 HR, THEN REMOVE BY THOROUGH WASHING 12/29 completed Not Available Not Available Not Available ciproflox acin 500 mg tablet TAKE 1 TABLET BY MOUTH TWICE A DAY FOR 10 DAYS 08/19 completed Not Available Not Available Not Available sulfameth oxazole 800 mg-trimet hoprim 160 mg tablet active Not Available Not Available Not Available triamcino lone acetonide 0.1 % topical cream APPLY TO TRUNK AND EXTREMIT IES TWICE DAILY NEEDED FOR FLARES, DECREASE USE SYMPTOMS IMPROVE active Not Available Not Available No t Available doxycycli ne monohydra te 100 mg capsule TAKE 1 CAPSULE BY MOUTH TWICE A DAY WITH FOOD AND A FULL GLASS OF WATER, WEAR SUNSCREE N 02/23 completed Not Available Not Available Not Available cephalexi n 500 mg capsule TAKE 1 CAPSULE BY MOUTH THREE TIMES A DAY 07/11 completed Not Available Not Available Not Available pantopraz ole 40 mg tablet,de layed release Take 1 tablet every day by oral route before meals for 30 days. 02/23 completed Not Available Not Available Not Available erythromy ryan 5 mg/gram (0.5 %) eye ointment FOUR TO SIX TIMES DAILY, NEEDED 12/01 completed RECORDED 05/11/20 10 9:43AM BY PAMELLA ROACH, MEDICATI ON AUTO-JOVANI CTIVATIO N;APPLY ONE HALF INCH RIBBON OF OINTMENT TO LOWER EYELID SAC OF R EYE. Not Available Not Available Not Available tacrolimu s 0.1 % topical ointment APPLY TO LEGS TWICE DAILY NEEDED FOR FLARES, ALTERNAT ING WITH STEROID active Not Available Not Available No t Available lansopraz ole 30 mg capsule,d elayed release Take 1 capsule every day by oral route before meal(s) for 90 days. 2023 active [facility]; pt to send to [facility] Not Available Not Available Not Available nystatin- triamcino lone 100,000 unit/g-0. 1 % topical cream APPLY TOPICALL Y TO THE AFFECTED AREA TWICE DAILY IN THE MORNING AND IN THE EVENING active Not Available Not Available No t Available triamcino lone acetonide 0.025 % topical ointment APPLY TO LEGS AND FEET TWICE DAILY NEEDED FOR FLARES 02/03 completed Not Available Not Available Not Available betametha sone dipropion ate 0.05 % topical cream APPLY TO FEET TWICE A DAY NEEDED active Not Available Not Available No t Available lisinopri l 5 mg tablet TAKE 1 TABLET BY MOUTH EVERY DAY active Not Available Not Available No t Available clobetaso l 0.05 % topical ointment APPLY TO TOE TWICE DAILY NEEDED FOR FLARES, DECREASE USE SYMPTOMS IMPROVE active Not Available Not Available No t Available fluticaso ne propionat e 50 mcg/actua tion nasal spray,deepti pension Inhale 2 sprays every day by intranas al route each side for 90 days. 04/13 completed Not Available Not Available Not Available atenolol 50 mg tablet Take 1 tablet every day by oral route for 90 days. 02/15 completed Not Available Not Available Not Available amoxicill in 875 mg-potass ium clavulana te 125 mg tablet 09/05 completed Not Available Not Available Not Available amlodipin e 5 mg-atorva statin 20 mg tablet TAKE 1 TABLET BY MOUTH EVERY DAY DIRECTED active Not Available Not Available No t Available omeprazol e DAILY 05/09 completed RECORDED 05/09/20 12 3:16PM BY FARAZ VITAL, HISTORIC AL SUMMARY; Not Available Not Available Not Available labetalol BID 04/14 completed RECORDED 04/14/20 09 10:04AM BY NOLAN BEE MD, OFFICE VISIT; Not Available Not Available Not Available blood pressure monitor DAILY MONITORI NG OF BP FOR HTN 08/13 completed RECORDED 08/31/19 12 4:11PM BY SARAH ROSADO I, MEDICATI ON AUTO-JOVANI CTIVATIO N; Not Available Not Available Not Available EpiCeram APPLY TOPICALL Y 2 TIMES DAILY TO FEET AND ANKLES 02/03 completed Not Available Not Available Not Available Gavilyte- C 240 gram-22.7 2 gram-6.72 gram-5.84 gram oral solution TAKE 8 OUNCE BY MOUTH DIRECTED FOLLOW INSTRUCT IONS GIVEN BY DOCTORS OFFICE 02/15 completed Not Available Not Available Not Available EpiCeram topical emulsion, extended release APPLY TOPICALL Y TO FACE AND BODY 4 TIMES A DAY 02/23 completed Not Available Not Available Not Available Eucrisa 2 % topical ointment APPLY TO ITCHIEST AREAS TWICE A DAY NEEDED FOR ITCHING active Not Available Not Available No t Available Vitals Date Recorded Body height Body temperature Provider N ramonita and Address Organization Details Last Updated DateTime 03/24/2023 193.04 cm 98.6 [degF] Eduin hooker MA [facility] 03/24/2023 16:05:13 Date Recorded Body mass index (BMI) Body weight Heart rate Oxygen saturation Oxygen saturation in Arterial blood by Pulse oximetry Systolic blood pressure Diastolic blood pressure Provider Name and Address Organization Details Last Updated DateTime 3 39.8 kg/m2 397011. 7 g 64 /min 97 % 97 % 151 mm[Hg] 75 mm[Hg] Geraldo Sheridan MA [facility] 3 16:00:31 Date Recorded Systolic blood pressure Diastolic blood pressure Provider Name and Address Organization Details Last Updated DateTime 03/24/2023 144 mm[Hg] 74 mm[Hg] Katie Garcia PA-C [address], [address], [facility] 03/24/2023 16:26:18 Date Recorded Body height Body mass index (BMI) Body weight Oxygen saturation Oxygen saturation in Arterial blood by Pulse oximetry Heart rate Body temperature Systolic blood pressure Diastolic blood pressure Provider Name and Address Organization Details Last Updated DateTime 4 193.04 cm 39.1 kg/m2 278325. 95 g 97 % 97 % 73 /min 98.7 [degF] 126 mm[Hg] 76 mm[Hg] Maryse Garcia MA [facility] 4 15:51:17 Date Recorded Body height Body mass index (BMI) Body weight Heart rate Oxygen saturation Oxygen saturation in Arterial blood by Pulse oximetry Body temperature Systolic blood pressure Diastolic blood pressure Provider Name and Address Organization Details Last Updated DateTime 4 193.04 cm 38.2 kg/m2 093031 g 73 /min 98 % 98 % 98.1 [degF] 161 mm[Hg] 85 mm[Hg] Kari Alfredo MA [facility] 4 08:36:42 Date Recorded Systolic blood pressure Diastolic blood pressure Provider Name and Address Organization Details Last Updated DateTime 03/05/2024 128 mm[Hg] 78 mm[Hg] Katie Garcia PA-C [address] [facility] [address], [place], [address], [facility] 03/05/2024 09:35:52 Date Recorded Body height Body mass index (BMI) Body weight Heart rate Oxygen saturation Oxygen saturation in Arterial blood by Pulse oximetry Body temperature Systolic blood pressure Diastolic blood pressure Provider Name and Address Organization Details Last Updated DateTime 4 193.04 cm 37.4 kg/m2 337715. 86 g 73 /min 96 % 96 % 99.4 [degF] 167 mm[Hg] 93 mm[Hg] Shyanne Green [facility] 4 11:36:38 Date Recorded Systolic blood pressure Diastolic blood pressure Provider Name and Address Organization Details Last Updated DateTime 07/11/2024 124 mm[Hg] 82 mm[Hg] Katie Garcia PA-C [address], [address], [facility] 07/11/2024 12:36:14 Date Recorded Body height Body mass index (BMI) Body weight Heart rate Oxygen saturation Oxygen saturation in Arterial blood by Pulse oximetry Body temperature Systolic blood pressure Diastolic blood pressure Provider Name and Address Organization Details Last Updated DateTime 5 193.04 cm 38.1 kg/m2 489960. 41 g 62 /min 98 % 98 % 98 [degF] 155 mm[Hg] 83 mm[Hg] [facility] 5 16:10:56 Date Recorded Systolic blood pressure Diastolic blood pressure Provider Name and Address Organization Details Last Updated DateTime 09/05/2024 136 mm[Hg] 78 mm[Hg] Katie Garcia PA-C [address] [facility] [address], [place], [address], [facility] 09/05/2024 16:36:36 Date Recorded Systolic blood pressure Diastolic blood pressure Provider Name and Address Organization Details Last Updated DateTime 05/13/2023 130 mm[Hg] 77 mm[Hg] Betsy Mary Ann [facility] 07/12/2023 09:04:38 Social History Question Answer Notes LastModified by Organizat ion Details LastModified Time Tobacco Smoking Status Never Smoker FARAZ Gottlieb, [facility] 04/09/2014 13:57:49 Do You Have An Advance Directive? Yes [facility] Information not available 04/10/2015 What Is Your Level Of Alcohol Consumption? None [email or web address] Information not available 02/23/2023 Is Blood Transfusion Acceptable In An Emergency? Yes Information not available 04/10/2015 What Is Your Level Of Caffeine Consumption? Moderate Coffee Daily, 1-2 Servings Information not available 04/09/2014 How Much Tobacco Do You Chew? None Information not available 04/10/2015 In The 14 Days Before Symptom Onset, Have You Had Close Contact With A Laboratory-conf irmed COVID-19 While That Case Was Ill? No Information not available 12/24/2019 In The 14 Days Before Symptom Onset, Have You Had Close Contact With A Person Who Is Under Investigation For COVID-19 While That Person Was Ill? No Information not available 12/24/2019 Have You Been To An Area Known To Be High Risk For COVID-19? Yes Information not available 12/24/2019 Are You Currently Employed? Yes Full-time Information not available 04/09/2014 What Type Of Diet Are You Following? SPECIFIC Low Sodium/low Sugar Information not available 06/12/2019 Which Illicit Or Recreational Drugs Have You Used? None Information not available 04/09/2014 Do You Or Have You Ever Used E-cigarettes Or Vape? 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 With Others (Blanquita) And Son Information not available 04/09/2014 Do You Take Precautions To Prevent Distracted Driving? Yes Information not available 04/10/2015 How Often Do You Need To Have Someone Help You When You Read Instructions, Pamphlets, Or Other Written Material From Your Doctor Or Pharmacy? Never Information not available 04/10/2015 Have You Served In The ? No Information not available 04/13/2016 Have You Or Anyone In Your Household Had Any Of The Following Symptoms In The Last 14 Days: Sore Throat, Cough, Chills, Body Aches For Unknown Reasons, Shortness Of Breath For Unknown Reasons, Loss Of Smell, Loss Of Taste, Fever At Or Greater Than 100 Degrees Fahrenheit? No Information not available 06/30/2020 Are You Or Anyone In Your Household A Health Care Provider Or Emergency Responder? No Information not available 06/30/2020 To The Best Of Your Knowledge Have You Been In Close Proximity To Any Individual Who Tested Positive For COVID-19? No Pt Tested At [facility] 04/13/2021=ne gative Information not available 06/30/2020 Have You Recently Traveled To A COVID-19 High Risk Area Or Gathering In The Last 10 Days? No [email or web address] Information not available 10/06/2020 What Was The Date Of Your Most Recent Tobacco Screening? 03/05/2024 [email or web address] Information not available 03/05/2024 How Many Children Do You Have? 1 Zan Information not available 04/09/2014 Do You Use Protection During Sex? No Information not available 04/10/2015 Seat Belts Used Routinely No Information not available 04/10/2015 Are You Sexually Active? Yes Information not available 04/10/2015 Smoke Alarm In Home Yes Information not available 04/09/2014 At What Age Did You Start Smoking Tobacco? 0 Information not available 04/10/2015 Are You Passively Exposed To Smoke? No Information not available 04/09/2014 Do You Or Have You Ever Used Smokeless Tobacco? Never Used Smokeless Tobacco Information not available 06/12/2019 How Much Tobacco Do You Smoke? No Information not available 04/09/2014 Do You Use Sunscreen Routinely? No Information not available 04/10/2015 How Many Years Have You Smoked Tobacco? 0 Information not available 04/10/2015 Sex: Unknown Functional Status Question Answer Note LastModified by Organization D etails LastModified Time Are you able to walk? YES[facility]OREST [email or web address] Information not available 02/15/2022 Are you able to care for yourself? Yes Information not available 04/09/2014 What is your exercise level? None Information not available 12/24/2019 Mental Status None recorded. Family History Relationship Description Onset Age of this Age Resolved Age Notes LastModified by Organization Details LastModified Time Mother Essential hypertension [email or web address] Not available 09:15:29 Father Cerebrovascu lar accident phelmuth Not available 09:15:29 Notes:ADOPTED Medical History Condition Response Acid Reflux (GERD) Y Reflux/GERD Y Hypertension Y High Cholesterol Y Immunizations Vaccine Type Date Status Note Provider Nam e and Address Organization Details Recorded Time Tdap 12/24/19 15 completed Nolan Bee MD [address] [address], [place], [address], [facility] [place] 04/10/2015 09:16:26 COVID-19 vaccine, vector-nr, rS-Ad26, PF, 0.5 mL 10/27/19 21 completed Maren Donnelly MA null, [facility] [place] 07/09/2021 15:56:36 COVID-19, mRNA, LNP-S, PF, 30 mcg/0.3 mL dose 07/21/20 21 completed Shyanne Green MA null, [facility] 08/31/2021 11:33:32 Influenza, split virus, quadrivalent, PF 04/11/20 17 cancelled patient objection Not Available [facility]2019 02:22:07 zoster recombinant 12/24/19 20 cancelled patient objection Katie Navid PA-C [address], [place], [address], [facility] [place] 12/24/2019 17:04:31 Influenza, split virus, quadrivalent, PF 05/13/20 21 cancelled patient objection Katie Navid PA-C [address], [place], [address], [facility] 05/13/2021 17:32:30 Tdap 04/14/20 09 completed Not Available [facility] 02/05/2014 14:04:51 Past Encounters Encounter ID Performer Location Encounter Start Date Encounter Closed Date Diagnosis/Indication Diagnosis SNOMED-CT Code Diagnosis ICD10 Code Diagnosis Note [id number] auto[facility]Comm erce [id number] [facility] [place] [address] 04/26/2006 00:00:00 [id number] autoEComm erce [id number] [facility] [place] [address] 02/16/2006 00:00:00 [id number] autoEComm erce [address] [facility] [place] [address] 04/19/2005 00:00:00 [id number] autoEComm erce [address] [facility] [place] [address] 10/18/2006 00:00:00 [id number] autoEComm erce [address] [facility] [place] [address] 04/12/2007 00:00:00 [id number] autoEComm erce [address] [facility] [place] [address] 10/09/2007 00:00:00 [id number] autoEComm erce [address] [facility] [place] [address] 01/08/2008 00:00:00 [id number] autoEComm erce [address] [facility] [place] [address] 09/03/2008 00:00:00 [id number] autoEComm erce [address] [facility] [place] [address] 10/30/2008 00:00:00 [id number] autoEComm erce [address] [facility] [place] [address] 04/14/2009 00:00:00 [id number] autoEComm erce [address] [facility] [place] [address] 11/11/2009 00:00:00 [id number] autoEComm erce [address] [facility] [place] [address] 11/24/2009 00:00:00 [id number] autoEComm erce [address] [facility] [place] [address] 08/18/2010 00:00:00 [id number] autoEComm erce [address] [facility] [place] [address] 02/17/2011 00:00:00 [id number] autoEComm erce [address] [facility] [place] [address] 08/31/2011 00:00:00 [id number] autoEComm erce [address] [facility] [place] [address] 02/29/2012 00:00:00 [id number] autoEComm erce [address] [facility] [place] [address] 11/21/2012 00:00:00 [id number] autoEComm erce [address] [facility] [place] [address] 05/22/2013 00:00:00 [id number] Kassidy Zachery Main Office [address] [facility] [address] [place] [address] 04/09/2014 13:43:19 04/09/2014 14:37:31 Essential hypertension [id number] [facility] [id number] Gastroesop hageal reflux disease 680303753 Adult heal th examination 947105263 Body mass index 30+ - obesity 958492378 Tinea pedis 1081080 [id number] Nolan Bee MD Main Office [address] [address] [place] [address] 10/14/2014 15:31:51 10/14/2014 16:48:28 Essential hypertension 89623041 Gastroesop hageal reflux disease 835252054 Body mass index 30+ - obesity 905124212 202023 Main Office [address] [address] [place] [address] 04/10/2015 08:53:53 04/10/2015 09:47:10 Adult health examination 851427234 Essential hypertension 23788692 Hyperlipidemia 95741884 Obstructiv e sleep apnea syndrome 50939239 Body mass index 30+ - obesity 350474151 [id number] Nolan Bee MD Main Office [address] [address] [place] [address] 10/16/2015 15:50:17 10/16/2015 16:32:56 Essential hypertension 25014886 I10 Gastroesop hageal reflux disease 934043428 K21.9 Obstructiv e sleep apnea syndrome 00230098 G47.33 Allergic rhinitis 197157 04 J30.9 Body mass index 30+ - obesity 064875986 Z68.37 [id number] Nolan Bee MD Main Office [address] [address] [place] [address] 04/13/2016 09:02:56 04/13/2016 10:00:34 Adult health examination 504154946 Z00.00 Essential hypertension 66384183 I10 Obstructiv e sleep apnea syndrome 33899405 G47.33 Body mass index 30+ - obesity 257348862 Z68.37 Fatigue 02450000 R53.83 [id number] Nolan Bee MD Main Office [address] [address] [place] [address] 10/12/2016 16:11:42 10/12/2016 17:13:55 Essential hypertension 64076736 I10 Hyperlipidemia 92889727 E78.5 Fatigue 25280860 R53.83 Obstructiv e sleep apnea syndrome 90452341 G47.33 Continues to benefit from treatment. Followed by Dr. Roberts for pulmonary [id number] Nolan Bee MD Main Office [address] [facility] [address] [place] [address] 04/11/2017 09:31:51 04/11/2017 10:22:26 Essential hypertension 55993143 I10 Hyperlipidemia 36976600 E78.5 Immunization refused 275 346122 Z28.21 Obstructiv e sleep apnea syndrome 13998376 G47.33 Continues to benefit from treatment. Followed by Dr. Roberts for pulmonary [id number] Jonn Edmond MD Main Office [address] [place] [address] 11/02/2017 15:41:28 11/02/2017 16:36:02 Adult health examination 361043066 Z00.00 Essential hypertension 49877138 I10 stable, cont med as dir Hyperlipidemia 15098012 E78.2 no meds, will cont to monitor - rec increase aerobic activity and decrease red meat intake Obstructiv e sleep apnea syndrome 09019257 G47.33 cont cpap, f/u c sleep med as dir Gastroesop hageal reflux disease 291884704 K21.9 cont ppi as dir Impacted c erumen in right ear 1079969629 631668 H61.21 mild Body mass index 30+ - obesity 221714039 Z68.38 [id number] Nolan Bee MD Main Office [address] [address] [place] [address] 06/05/2018 14:46:10 06/05/2018 16:12:57 Essential hypertension 98092434 I10 stable, cont med as dir Obesity 479224511 E66.9 Impaired f asting glycemia 514587963 R73.01 A1c 5.2 - offered reassuranc e - no evidence of predm, but still encouraged wt loss d/t obesity and ankit Gastroesop hageal reflux disease 433859434 K21.9 cont ppi as dir Body mass index 30+ - obesity 214310747 Z68.38 Obstructiv e sleep apnea syndrome 91112359 G47.33 cont cpap, f/u c sleep med as dir [id number] Adela Richardso Main Office [address] [place] [address] 11/06/2018 08:34:44 11/06/2018 09:37:36 Adult health examination 775441441 Z00.00 Essential hypertension 66047038 I10 stable, cont med as dir, check bmp Hyperlipidemia 88901820 E78.2 no meds, will cont to monitor - rec increase aerobic activity and decrease red meat intake Obstructiv e sleep apnea syndrome 00190397 G47.33 cont cpap, f/u c sleep med as dir Gastroesop hageal reflux disease 308456252 K21.9 cont ppi as dir, cont med as per GI - needs surveillan ce egd & colon Body mass index 30+ - obesity 043846339 Z68.38 has lost 15 lbs - encouraged pt to continue Impaired f asting glycemia 983595672 R73.01 A1c 5.2 - offered reassuranc e - no evidence of predm, but still encouraged wt loss d/t obesity and ankit Obesity 080595213 E66.9 [id number] Adela Zapien Main Office [address] [facility] [address] [place] [address] 06/12/2019 15:31:18 06/12/2019 17:20:06 Essential hypertension 22852045 I10 ekg reviewed c AJC - see PE stable bp, cont med as dir - on BB Gastroesop hageal reflux disease 410717892 K21.9 cont ppi as dir as per GI - needs surveillan ce egd & colon in 2019 Impaired f asting glycemia 243727312 R73.01 A1c 5.0 - offered reassuranc e - no evidence of predm, but still encouraged wt loss d/t obesity and ankit Obstructiv e sleep apnea syndrome 52136394 G47.33 cont cpap, f/u c sleep med as dir Body mass index 30+ - obesity 318957415 Z68.38 Hyperlipidemia 28244644 E78.2 no meds -- 5.19 ascvd risk 6.2% - will cont to monitor - rec increase aerobic activity and decrease red meat intake Obesity 129523197 E66.9 [id number] Katie Garcia PA-C Main Office [address] [place] [address] 12/24/2019 15:50:25 12/24/2019 17:09:52 Adult health examination 298871489 Z00.00 Essential hypertension 48210133 I10 stable bp, cont med as dir - on BB Hyperlipidemia 17790937 E78.2 no meds -- 5.19 ascvd risk 6.2% - will cont to monitor - rec increase aerobic activity and decrease red meat intake Gastroesop hageal reflux disease 804398643 K21.9 cont ppi as dir as per GI - needs surveillan ce egd & colon in 2019- pending in a few months Impaired f asting glycemia 366538648 R73.01 A1c 5.0 - offered reassuranc e - no evidence of predm, but still encouraged wt loss d/t obesity and ankit Obstructiv e sleep apnea syndrome 98218088 G47.33 cont cpap, f/u c sleep med as dir Obesity 238048012 E66.9 Body mass index 30+ - obesity 336759032 Z68.38 Varicella vaccination 68 043664 Z23 [id number] Marcie Lowe Main Office [address] [address] 02/11/2020 13:02:26 02/11/2020 14:02:00 Contact dermatitis 47559074 L25.9 LIkely contact dermatitis , due to large area would do prednisone taper as it is very itchy. Call if not improving within a few days to a week, sooner if worsening. Infestatio n by Sarcoptes scabiei jocelyn hominis 204464143 B86 Rash bears a close enough resemblanc e to scabies that I want to treat for this x1, pt agreeable. Wash all bedding and clothing in hot soapy water. [id number] Katie Garcia PA-C Main Office [address] [address] 06/30/2020 15:45:48 07/01/2020 15:13:49 Essential hypertension 03095612 I10 stable bp, cont med as dir - on BB Hyperlipidemia 38373412 E78.2 no meds -- 5.19 - ascvd risk of 6.2% // 11.20 - 9.6% - pt declines statin at this time - will cont to monitor - rec increase aerobic activity and decrease red meat intake Impaired f asting glycemia 836336398 R73.01 A1c 5.0 - offered reassuranc e - no evidence of predm, but still encouraged wt loss d/t obesity and ankit Body mass index 30+ - obesity 712481547 E66.01 Z68.39 [id number] Katie GONZALEZC Main Office [address] [address] [place] [address] 10/06/2020 15:31:06 10/07/2020 16:28:11 Essential hypertension 00646308 I10 stable bp, cont med as dir - on BB Hyperlipidemia 96089829 E78.2 no meds -- 5.19 - ascvd risk of 6.2% // 11.20 - 9.6% / 3.21 - 9.0% - pt declines statin at this time - - rec increase aerobic activity and decrease red meat intake, could consider red yeast rice Impaired f asting glycemia 819019046 R73.01 A1c 5.1 - offered reassuranc e - no evidence of predm, but still encouraged wt loss d/t obesity and ankit [id number] Nolan Bee MD Main Office [address] [address] [place] [address] 12/29/2020 15:29:31 12/29/2020 17:00:48 Adult health examination 296533864 Z00.00 Essential hypertension 96528324 I10 Hyperlipidemia 38239290 E78.5 Tinea pedis 1718898 B35. 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 Followed by Dr. Roberts for pulmonary [id number] Sirisha campbell Main Office [address] [address] [place] [address] 04/14/2021 10:34:49 04/14/2021 11:45:55 Essential hypertension 85862151 I10 pulse running low, pt with orthostati c symptoms and orthostati c BP drop in ER, lower atenolol from 100mg to 75mg, in a few days restart norvasc 5mg check labs in 4 weeks Orthostati c hypotension 36780071 I95.1 see above and hydrate Anemia due to unknown mechanism 33866772 D64.9 hgb very minimally decreased in ER with nl Ht, recheck in 4 weeks. Vertigo 839467726 R42 resolved [id number] Katie Garcia PA-C Main Office [address] [address] [place] [address] 05/13/2021 15:29:28 05/13/2021 16:28:12 Essential hypertension 76649120 I10 stable bp, cont med as dir -- x HR still a little low - so decrease BB from 75mg to 50mg Needs infl uenza immunization 863075649 Z23 Serum ferr itin above reference range 282400334 R77.8 pending HH panel, no FH HH Hyperlipidemia 41670632 E78.2 cont statin as dir [id number] Katie Garcia PA-C Main Office [address] [place] [address] 07/09/2021 15:40:12 07/09/2021 16:59:58 Essential hypertension 92513333 I10 stable bp, cont meds as dir Hyperlipidemia 30743214 E78.2 ldl sig lower - cont statin as dir Gastroesop hageal reflux disease 525026340 K21.9 cont ppi as dir as per GI Hemochromatosis 12178528 6 E83.119 pending hem/onc eval in 2. [id number] Katie Garcia PA-C Main Office [address] [address] [place] [address] 08/31/2021 11:24:12 08/31/2021 12:26:48 Dizziness 184528263 R42 new onset yesterday - believe d/t orthostasi s, herman c hr in the 50s --- advised pt to stop BB, cont to stay hydrated, and switch bp/statin combo to pm doubt vertigo - no h/o such, and curr feels fine, able to move head fine c no dizziness f/u 1-2 wks, sooner if dizziness returns or other cardiac sxs appear Essential hypertension 90307252 I10 stable bp, change meds as dir above/belo w Hyperlipidemia 87735709 E78.2 ldl sig lower - cont statin as dir Hemochromatosis 71617363 6 E83.119 stable, cont f/u c hem/onc [id number] Katie Garcia PA-C Main Office [address] [facility] [address] [place] [address] 10/07/2021 15:36:46 10/07/2021 16:05:27 Essential hypertension 18407586 I10 stable bp - cont med as dir Dizziness 690923024 R42 resolved [id number] Katie Garcia PA-C Main Office [address] [address] [place] [address] 02/15/2022 10:17:07 02/15/2022 11:34:54 Adult health examination 899778236 Z00.00 Essential hypertension 62360018 I10 stable bp - cont med as dir Impaired f asting glycemia 484213836 R73.01 A1c 5.1 - offered reassuranc e - no evidence of predm, but still encouraged wt loss d/t obesity and ankit Obstructiv e sleep apnea syndrome 72606608 G47.33 cont cpap, f/u c sleep med as dir Hyperlipidemia 37266932 E78.2 ldl sig lower - cont statin as dir Hemochromatosis 08793032 6 E83.119 stable, cont f/u c hem/onc - next in 1.23 Eczema 38484876 L30.9 seen by derm - cont creams as dir Gastroesop hageal reflux disease 378936554 K21.9 cont ppi as dir as per GI - no evidence of bashir's 2.21 egd Body mass index 30+ - obesity 758368687 E66.01 Z68.38 [id number] Katie Garcia PA-C Main Office [address] [address] [place] [address] 08/19/2022 15:37:22 08/20/2022 09:56:46 Gastroesophageal reflux disease 930460637 K21.9 cont ppi as dir as per GI - no evidence of bashir's 2.21 egd Essential hypertension 75431308 I10 stable bp & cr - cont med as dir Hemochromatosis 01320004 6 E83.119 had recent liver mri & echo / pending cardiac mri, cont f/u c hem/onc check labs c cc: hem/onc Body mass index 30+ - obesity 171765038 E66.01 Z68.39 Impaired f asting glycemia 850141541 R73.01 A1c 5.1 - offered reassuranc e - no evidence of predm, but still encouraged wt loss d/t obesity and ankit Hyperlipidemia 69885375 E78.2 ldl sig lower - cont statin as dir [id number] Jonn Edmond MD Main Office [address] [facility] [address] [place] [address] 02/03/2023 10:51:54 02/03/2023 11:44:26 Low back pain 473665341 M54.50 Muscular pain. Will take ibuprofen 800 mg tid for the next couple of days and a muscle relaxant. [id number] Katie Garcia PA-C Main Office [address] [facility] [address] [place] [address] 02/23/2023 14:49:03 02/23/2023 16:15:42 Adult health examination 744348185 Z00.00 Obstructiv e sleep apnea syndrome 88012321 G47.33 cont cpap, f/u c sleep med as dir Hemochromatosis 00795120 6 E83.119 had recent liver mri & echo / pending cardiac mri, cont f/u c hem/onc 8.23 - stable, cont phlebotomy monthly, next ov c hem/onc 10.23 Hyperlipidemia 79244183 E78.2 ldl sig lower - cont statin as dir Essential hypertension 41671641 I10 bp elevated - cont med as dir, will cont to monitor at derm next week and at phlebotomy - let me know if cont to trend up, f/u 1 month for recheck - may need add'l med Gastroesop hageal reflux disease 118217570 K21.9 cont ppi as dir as per GI - no evidence of bashir's 2.21 egd Impaired f asting glycemia 334375369 R73.01 A1c 5.2 - offered reassuranc e - no evidence of predm, but still encouraged wt loss d/t obesity and ankit History of polyp of colon 081801732 Z86.010 next in 5.27 Body mass index 30+ - obesity 991675940 E66.01 Z68.39 Eczema 45126764 L30.9 seen by derm - cont creams as dir [id number] Katie Garcia PA-C Main Office [address] [facility] [address] [facility] [place] [address] 03/24/2023 15:26:07 03/24/2023 16:38:16 Essential hypertension 46085625 I10 bp elevated - cont med as dir, will cont to monitor at derm next week and at phlebotomy - let me know if cont to trend up, f/u 1 month for recheck - may need add'l med 8.23 - initial reading elevated - did have ham sandwich for lunch - rec low salt diet, recheck a little lower but still not at goal - suggest trial of lis 5mg qd - rev possible SEs Gastroesop hageal reflux disease 413403760 K21.9 cont ppi as dir as per GI - no evidence of bashir's 2.21 egdpt requested refill - rx printed so it could be sent to [facility] Hyperlipidemia 37820714 E78.2 ldl sig lower - cont statin as dir, pending recheck lipids [id number] Katie Garcia PA-C Main Office [address] [place] [address] 09/28/2023 15:36:46 09/28/2023 17:01:55 Essential hypertension 24393015 I10 bp elevated - cont med as dir, will cont to monitor at derm next week and at phlebotomy - let me know if cont to trend up, f/u 1 month for recheck - may need add'l med 8.23 - initial reading elevated - did have ham sandwich for lunch - rec low salt diet, recheck a little lower but still not at goal - suggest trial of lis 5mg qd - rev possible SEs 3.24 - bp & cr stable, cont meds as dir Hyperlipidemia 33084050 E78.2 ldl ~ stable - cont statin as dir Gastroesop hageal reflux disease 470829436 K21.9 cont ppi as dir as per GI - no evidence of bashir's 2.21 egdpt requested refill - rx printed so it could be sent to [facility] Hemochromatosis 45875624 6 E83.119 had recent liver mri & echo / pending cardiac mri, cont f/u c hem/onc 3.24 - stable, cont phlebotomy monthly, next ov c hem/onc 4.24 [id number] Katie Garcia PA-C Main Office [address] [place] [address] 03/05/2024 08:25:30 03/05/2024 09:41:27 Adult health examination 010259363 Z00.00 colon utd Hemochromatosis 80997238 6 E83.119 had recent liver mri & echo / pending cardiac mri, cont f/u c hem/onc 8.24 - stable, cont phlebotomy monthly, cont c hem/onc q 6 months Hyperlipidemia 74355573 E78.2 ldl ~ stable - cont statin as dir History of polyp of colon 076451694 Z86.010 next in 5.27 Obstructiv e sleep apnea syndrome 40704628 G47.33 cont cpap, f/u c sleep med as dir Gastroesop hageal reflux disease 766774040 K21.9 cont ppi as dir as per GI - no evidence of bashir's 2.21 egdpt requested refill - rx printed so it could be sent to [facility] 8.24 - stable Essential hypertension 85566042 I10 bp elevated - cont med as dir, will cont to monitor at derm next week and at phlebotomy - let me know if cont to trend up, f/u 1 month for recheck - may need add'l med 8.23 - initial reading elevated - did have ham sandwich for lunch - rec low salt diet, recheck a little lower but still not at goal - suggest trial of lis 5mg qd - rev possible SEs 8.24 - bp & cr stable, cont meds as dir Impaired f asting glycemia 051805256 R73.01 A1c 5.3 - offered reassuranc e - no evidence of predm, but still encouraged wt loss d/t obesity and ankit Nocturia 214689800 R35.1 Body mass index 30+ - obesity 938777132 E66.01 Z68.38 [id number] Katie GONZALEZC Main Office [address] [facility] [address] 07/11/2024 11:14:55 07/11/2024 12:40:39 Fever 441464259 R50.9 offered re-assuran ce both covid and flu testing normal Acute sinusitis 33088682 J01.90 rec mucinex, ns spray, warm washcloth side of neck prnrecomme nd probiotics while on abx Deviated nasal septum 12 5210412 J34.2 [id number] Katie Garcia PA-C Main Office [address] [place] [address] 09/05/2024 15:45:40 09/05/2024 16:44:38 Hyperlipidemia 97981852 E78.2 ldl ~ stable - cont statin as dir Essential hypertension 76742821 I10 bp elevated - cont med as dir, will cont to monitor at derm next week and at phlebotomy - let me know if cont to trend up, f/u 1 month for recheck - may need add'l med 8.23 - initial reading elevated - did have ham sandwich for lunch - rec low salt diet, recheck a little lower but still not at goal - suggest trial of lis 5mg qd - rev possible SEs 2.25 - bp & cr stable, cont meds as dir Deviated nasal septum 12 3425509 J34.2 pending see ent 6.25cont ns spray, steam Hemochromatosis 39199467 6 E83.119 had recent liver mri & echo / pending cardiac mri, cont f/u c hem/onc 2.25 - stable, cont phlebotomy monthly, cont c hem/onc q 6 months Impaired f asting glycemia 798383004 R73.01 A1c 5.3 - offered reassuranc e - no evidence of predm, but still encouraged wt loss d/t obesity and ankit Heart murmur 99870534 R0 1.1 Health Concerns Section Related Observation LastModified by Organization Detai ls LastModified Time None Recorded Concern Status LastModified by Organization Details LastModified Time None Recorded Advance Directives Directive Y: HCP Payers Encounter Date Sequence Insurance Name Policy Number Policy Solares Covered Member ID Solares Member ID Guarantor Name 03/24/2023 1 [place] [employer] [place] [id number] Naveen J Vadnais [id number] Naveen Vadnais 09/28/2023 1 [place] [employer] [place] [id number] Naveen J Vadnais [id number] Naveen Vadnais 03/05/2024 1 [place] [employer] [place] [id number] Naveen J Vadnais [id number] Naveen Vadnais 07/11/2024 1 [place] [employer] [place] [id number] Naveen J Vadnais [id number] Naveen Mayen 09/05/2024 1 [facility] FLORENCIA JAGDEEP [id number] Naveen Mayen [id number] Naveen Mayen Notes Date Note Type Note Provider Name and Address Organization Details Recorded Time 03/24/2023 text/html Hypertension F/UReported bypatient.Associated Symptoms:no dizziness; no lightheadedness; no chest pain; no shortness of breath; no palpitations; no edema; no calf pain with exertion Lifestyle:regular exercise;high salt intake Medications:taking medications as directed; no side effects from medication Katie Garcia PA-C [address] [address], [place], [address], [facility] 03/24/2023 17:02:32 09/28/2023 text/html Hypertension F/UReported bypatient.Associated Symptoms:no dizziness; no lightheadedness; no chest pain; no shortness of breath; no palpitations; no edema; no calf pain with exertion Lifestyle:regular exercise; limiting/avoiding salt Medications:taking medications as directed; no side effects from medication Katie Garcia PA-C [address] [address], [place], [address], [facility] 09/28/2023 17:20:55 03/05/2024 text/html here for annual pe. Katie Garcia PA-C [address] [address], [place], [address], [facility] 03/05/2024 09:39:37 07/11/2024 text/html Patient reports yesterday around 4pm became very weak, and shivering/cold/diapho resis - head felt fuzzy -warmed up c a blanket/slept fine - no problems this amalso this incident occurred a few weeks ago - recovered next dayno timing of above to therapeutic phlebotomy - last one 1 month agodenies cp, sob, dizzy, fever, cough, sneeze, myalgias, haate bkft & lunch yesterday - so doubt hypoglycemiahad 'sinus congestion martinez' ~ 2 months ago - better now, but sniffles a lotdenies pur nasal dc, jaw/tooth pain reviewed recent labs - nl Katie Garcia PA-C [address] [facility] [address], [place], [address], [facility] 07/11/2024 13:17:05 09/05/2024 text/html Hypertension F/UReported bypatient.Associated Symptoms:no dizziness; no lightheadedness; no chest pain; no shortness of breath; no palpitations; no edema; no calf pain with exertion Lifestyle:regular exercise; limiting/avoiding salt Medications:taking medications as directed; no side effects from medication Katie Garcia PA-C [address] [facility] [address], [place], [address], [facility] 09/05/2024 20:38:55
--- OUTSIDE RECORDS SUMMARY | 2024-09-07 08:08 | XMS_ITS | Continuity of Care Document ---
Author Organization [facility], Main Office Address [address] [place] [address] [place] [address] Care Team Providers Care [place] Name Role Phone MODE GARCIA Primary Care Provider [phone] KATINA ROBERTS Stock Clerk REINALDO SOL Software Administrator PRASANTH POND Marine Underwriter UNIUQE JOHNSON Livestock Commission Agent Assessment No assessment recorded. Plan of Treatment Reminders Order Date Submit Date Provider Last Modified By Organization Details Last Modified Time Details Appointments PE EST 2024 08:45A M Mode Garcia PA-C Not available Not available Not available Lab HbA1c (hemoglob in A1c), blood 2024 025 pmadden [facility], [facility] [address], [address], 09/05/2024 16:37:57 BMP, serum or plasma 2024 025 pmadden [facility], [facility] [address], [address], 09/05/2024 16:37:57 Referral None recorded. Procedures None recorded. Surgeries None recorded. Imaging US, echocardi ogram - please compare c cardiac mri 3.6.23 2024 025 pmadden Not available 09/06/2024 13:58:53 Medication Orders None recorded. 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 pmadden Not available 09/05/2024 20:38:17 Patient Instructions Encounter Date Encounter Id Patient Instructions Last Modified By Organization Details Last Modified Time 09/05/2024 [id number] Medications (OTC , herbal therapies, supplements) reviewed and reconciled with patient and or caregiver, including potential side effects, drug interactions, instructions, and the consequences of not taking medication. Reviewed potential barriers to medication adherence, such as side effects from medication or cost of medication. 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 None Reported. Problems Name Problem SNOMED Code Status Onset Date Resolution Date Notes Provider Name and Address Organization Details Recorded Time Adult health examinat ion Completed 201202/12/2014 RECORDED 05/22/20 13 4:02PM BY NATASHA OHARA MA, FRANCISCO J ON/ADDEN HEBER orantes MA [facility] 6 14:59:31 Dependen ce on enabling machine or device 606933229 Completed 201304/11/2017 BiPAP machine at bedtime AFRAZ Solorzano [facility] 7 09:36:26 Conjunct ivitis 6752376 Completed 201102/12/2014 RECORDED 02/29/20 12 4:20PM BY EDUIN LOVE MA, ANNOTATI ON/ADDEN DUM Pamela orantes [facility] 6 14:59:31 Gastroes ophageal reflux disease 505852390 Active 2012 STORY: TREATMEN T FAILURE WITH OMEPRAZO LE. STABLE ON PREVACID FARAZ Solorzano, [facility] 6 09:20:40 [facility] l hyperten arlin 26702674 Active 2012 Pamela orantes [facility] 6 14:59:31 Malaise and fatigue 541708486 Completed 201102/12/2014 RECORDED 02/29/20 12 4:20PM BY EDUIN LOVE MA, ANNOTATI ON/ADDEN DUM Pamela orantes [facility] 6 14:59:31 Hyperlip idemia 34420698 Active 2012 5.19 - ascvd risk of 6.2% // 11.20 - 9.6% Mode Garcia PA-C [address] [address], [place], [address] , [facility] 0 17:04:54 Influenz a vaccine needed 56708652684 06 Completed 201002/12/2014 DATE: 08/18/19 11; RECORDED 02/29/20 12 4:20PM BY EDUIN LOVE MA, ANNOTATI ON/ADDEN DUM Pamela orantes [facility] 6 14:59:31 Administ ration of bacteria l and viral vaccine Completed 200802/12/2014 RECORDED 04/14/20 09 9:17AM BY EDUIN LOVE MA, OFFICE VISIT Pamela orantes [facility] 6 14:59:31 Obesity 299283933 Active 2012 Pamela Musa null, [facility] 6 14:59:31 Obstruct jasmin sleep apnea syndrome 18796037 Active 2012 Pamela Musa null, [facility] 6 14:59:31 Osteoart hritis 240903221 Active 2012 Pamela Musa null, [facility] 6 14:59:31 Referred otalgia 86998967 Completed 201102/12/2014 RECORDED 02/29/20 12 4:20PM BY EDUIN LOVE MA, ANNOTATI ON/ADDEN DUM Pamela Musa null, [facility] 6 14:59:31 Screenin g for malignan t neoplasm of colon Completed 201102/12/2014 RECORDED 02/29/20 12 4:20PM BY EDUIN LOVE MA, ANNOTATI ON/ADDEN DUM Pamela Musa null, [facility] 6 14:59:31 Adult health examinat ion Completed 201203/04/2014 RECORDED 05/22/20 13 4:02PM BY NATASHA OHARA MA, ANNOTATI ON/ADDEN DUM Pamela Musa null, [facility] 6 14:59:31 Conjunct ivitis 9515792 Completed 201103/04/2014 RECORDED 02/29/20 12 4:20PM BY EDUIN LOVE MA, ANNOTATI ON/ADDEN DUM Pamela Musa null, [facility] 6 14:59:31 Malaise and fatigue 155499248 Completed 201103/04/2014 RECORDED 02/29/20 12 4:20PM BY EDUIN LOVE MA, ANNOTATI ON/ADDEN DUM Pamela Musa null, [facility] 6 14:59:31 Influenz a vaccine needed 40821473469 06 Completed 201003/04/2014 DATE: 08/18/19 11; RECORDED 02/29/20 12 4:20PM BY EDUIN LOVE MA, ANNOTATI ON/ADDEN DUM Pamela orantes [facility] 6 14:59:31 Administ ration of bacteria l and viral vaccine Completed 200803/04/2014 RECORDED 04/14/20 09 9:17AM BY EDUIN LOVE MA, OFFICE VISIT Pamela orantes [facility] 6 14:59:31 Referred otalgia 80011596 Completed 201103/04/2014 RECORDED 02/29/20 12 4:20PM BY EDUIN LOVE MA, ANNOTATI ON/ADDEN DUM Pamela orantes [facility] 6 14:59:31 Screenin g for malignan t neoplasm of colon Completed 201103/04/2014 RECORDED 02/29/20 12 4:20PM BY EDUIN LOVE MA, ANNOTATI ON/ADDEN DUM Pamela orantes [facility] 6 14:59:31 Body mass index 30+ - obesity 187092444 Completed 06/13/2019 Removal Reason: dx changed Adela Rondontyler orantes [facility] 9 15:51:20 Tinea pedis 0166275 Active Pamela orantes [facility] 6 14:59:31 Allergic rhinitis 89542522 Active Pamela orantes [facility] 6 14:59:31 Dependen ce on biphasic positive airway pressure ventilat ion 529634130 Active 2013 bi-PAP machine FARAZ Solorzano [facility] 7 09:36:48 Serum ferritin above referenc e range 013297318 Completed 202003/05/2024 Mode Garcia PA-C [address], [place], [address] , [facility] 4 09:24:56 Hemochro matosis 725050988 Active 2020 Mode Garcia PA-C [address], [place], [address] , [facility] 1 13:13:24 Eczema 56212937 Active 2021 Mode Garcia PA-C [address], [place], [address] , [facility] 2 11:12:49 History of polyp of colon 533511094 Active 2022 Mode Garcia PA-C [address], [place], [address] , [facility] 3 15:57:39 Deviated nasal septum 456247257 Active 2024 Mode Garcia PA-C [address], [place], [address] , [facility] 5 16:19:23 Impaired fasting glycemia 008055457 Active 2024 Mode Garcia PA-C [address], [place], [address] , [facility] 5 16:24:29 Heart murmur 12941125 Active 2024 Mode Garcia PA-C [address], [place], [address] , [facility] 5 16:33:00 Problem Notes None recorded. Procedures Surgical History Date Name Laterality Status Provider Name and Address Organization Details Recorded Time 2 Colonoscopy completed Pamela Musa [facility] 01/05/2022 15:11:44 1 EGD completed Pamela Musa [facility] 09/17/2020 09:36:11 Imaging Results None recorded. [...] active [facility]; pt to send to [facility] Not Available Not Available Not Available nystatin- [...] Available Vitals Date Recorded Body height Body mass index (BMI) Body weight Heart rate Oxygen saturation Oxygen saturation in Arterial blood by Pulse oximetry Body temperature Systolic blood pressure Diastolic blood pressure Provider Name and Address Organization Details Last Updated DateTime 5 193.04 cm 38.1 kg/m2 736266. 41 g 62 /min 98 % 98 % 98 [degF] 155 mm[Hg] 83 mm[Hg] Shyanne Green [place] [facility] 16:10:56 Date Recorded Systolic blood pressure Diastolic blood pressure Provider Name and Address Organization Details Last Updated DateTime 09/05/2024 136 mm[Hg] 78 mm[Hg] Mode Garcia PA-C [address] [facility] [address], [place], [address], [facility] 09/05/2024 16:36:36 Social History Question Answer Notes LastModified by Organizat ion Details LastModified Time Tobacco Smoking Status Never Smoker FARAZ Gottlieb, [facility] 04/09/2014 13:57:49 Do You Have An Advance Directive? Yes [facility] Information not available 04/10/2015 What Is Your Level Of Alcohol Consumption? 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 No Pt Tested At [facility] 04/13/2021=ne gative Information not available 06/30/2020 Have You Recently Traveled To A COVID-19 High Risk Area Or Gathering In The Last 10 Days? No Information not available 10/06/2020 What Was The [...] Time Are you able to walk? YESWOREST Information not available 02/15/2022 Are you able [...] Tdap 12/24/19 15 completed Nolan Bee MD [address] [address], [place], [address], [facility] 04/10/2015 09:16:26 COVID-19 vaccine, vector-nr, rS-Ad26, PF, 0.5 mL 10/27/19 21 completed Maren Donnelly MA null, [facility] [place] 07/09/2021 15:56:36 COVID-19, mRNA, LNP-S, PF, 30 mcg/0.3 mL dose 07/21/20 21 completed Shyanne Green MA null, [facility] 08/31/2021 11:33:32 Influenza, split virus, quadrivalent, PF 04/11/20 17 cancelled patient objection Not Available [facility] 08/11/2019 02:22:07 zoster recombinant 12/24/19 20 cancelled patient objection Mode Garcia PA-C [address], [place], [address], [facility] 12/24/2019 17:04:31 Influenza, split virus, quadrivalent, PF 05/13/20 21 cancelled patient objection Mode Garcia PA-C [address], [place], [address], [facility] 05/13/2021 17:32:30 Tdap 04/14/20 09 completed Not Available [facility] 02/05/2014 14:04:51 Past Encounters Encounter ID Performer Location Encounter Start Date Encounter Closed Date Diagnosis/Indication Diagnosis SNOMED-CT Code Diagnosis ICD10 Code Diagnosis Note [id number] Mode Garcia PA-C Main Office [address] [place] [address] 09/05/2024 15:45:40 09/05/2024 16:44:38 Hyperlipidemia 36501489 E78.2 ldl ~ stable - cont statin as dir Essential hypertension 13284638 I10 bp elevated - cont med as [...] meds as dir Deviated nasal septum 12 4591136 J34.2 pending see ent 6.25cont ns spray, steam Hemochromatosis 59909513 6 E83.119 had recent liver mri & echo / pending cardiac mri, cont f/u c hem/onc 2.25 - stable, cont phlebotomy monthly, cont c hem/onc q 6 months Impaired f asting glycemia 835501246 R73.01 A1c 5.3 - offered reassuranc e - no evidence of predm, but still encouraged wt loss d/t obesity and ankit Heart murmur 56822228 R0 1.1 Health Concerns Section Related Observation LastModified by Organization Alexis ls LastModified Time None Recorded Concern Status LastModified by Organization Details LastModified Time None Recorded Payers Encounter Date Sequence Insurance Name Policy Number Policy Solares Covered Member ID Solares Member ID Guarantor Name 09/05/2024 1 [facility]EP [id number] Naveen Mayen [id number] Naveen Mayen Notes Date Note Type Note Provider Name and Address Organization Details Recorded Time 09/05/2024 text/html Hypertension F/UReported bypatient.Associat ed Symptoms:no dizziness; no lightheadedness; no chest pain; no shortness of breath; no palpitations; no edema; no calf pain with exertion Lifestyle:regular exercise; limiting/avoiding salt Medications:taking medications as directed; no side effects from medication Moed Garcia PA-C [address] [facility] [address], [place], [address], [facility] 09/05/2024 20:38:55
== END 2024-09-07 08:07 | disposition home or self-care (01) ==
LOC: HO.BBR 08:06
PROVIDERS: Visit Provider Hospitalist
DX: Z13.89 Encounter for screening for other disorder (principal)

== ENCOUNTER 2024-10-05 08:04 | Outpatient (REF) | payer BC, SELFPAY ==
--- OUTSIDE RECORDS SUMMARY | 2024-10-05 08:11 | XMS_ITS | Continuity of Care Document ---
Author Organization [facility], Main Office Address [address] [facility] [address] [place] [phone] Care Team Providers Care Fire Hazard Inspector Name Role Phone MODE GARCIA Primary Care Provider [phone] KATINA ROBERTS Web Development Intern REINALDO SOL Helicopter Pilot Instructor PRASANTH POND Manager Life UNIQUE JOHNSON Handstitching Machine Collar Feller Assessment No assessment recorded. Plan of Treatment Reminders Order Date Submit Date Provider Last Modified By Organization Details Last Modified Time Details Appointments PE EST 2024 08:45A M Mode Garcia PAGenie Not available Not available Not available Lab HbA1c (hemoglob in A1c), blood 2024 025 pmadden [facility] (Centralized Electronic Ordering - All Locations), Patient Can Go To The Location Of Their Choice, [id number] 09/05/2024 16:37:57 BMP, serum or plasma 2024 025 pmadden [facility] (Centralized Electronic Ordering - All Locations), Patient Can Go To The Location Of Their Choice, [address] 09/05/2024 16:37:57 Referral None recorded. Procedures None recorded. Surgeries None recorded. Imaging US, echocardi ogram - please compare c cardiac mri 3.6.23 2024 025 shravan [facility], [address] [place], [address], 09/13/2024 11:46:35 Medication Orders None recorded. 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 Reviewed potential barriers to medication adherence, such as side effects from medication or cost of medication. 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 None Reported. Results Created Date Observation Date Name Description Value Unit Range Abnormal Flag Note LastModifiedBy Organization Detail LastModifiedTime 09/07/19 25 09/27/2022 MRI, heart funct ion and morph ology , w/wo contr ast No observ ation record ed. pmadden Not Available 2024 13:24:15 Result Notes None recorded. Problems Name Problem SNOMED Code Status Onset Date Resolution Date Notes Provider Name and Address Organization Details Recorded Time Adult health examinat ion Completed 201202/12/2014 RECORDED 05/22/20 13 4:02PM BY NATASHA OHARA MA, ANNOTATI ON/ADDEN DUM Pamela Musa null, [facility] 6 14:59:31 Dependen ce on enabling machine or device [id number] Completed 201304/11/2017 BiPAP machine at bedtime FARAZ Solorzano, [facility] 7 09:36:26 Conjunct ivitis 5847608 Completed 201102/12/2014 RECORDED 02/29/20 12 4:20PM BY SAIDA LOVE MA, ANNOTATI ON/ADDEN DUM Pamela orantes [facility] 6 14:59:31 Gastroes ophageal reflux disease 974977615 Active 2012 STORY: TREATMEN T FAILURE WITH OMEPRAZO LE. STABLE ON PREVACID FARAZ Solorzano, [facility] 6 09:20:40 [facility] hyperten arlin 94887104 Active 2012 Pamela orantes [facility] 6 14:59:31 Malaise and fatigue 731485801 Completed 201102/12/2014 RECORDED 02/29/20 12 4:20PM BY SAIDA LOVE MA, ANNOTATI ON/ADDEN DUM Pamela orantes [facility] 6 14:59:31 Hyperlip idemia 36783117 Active 2012 5.19 - ascvd risk of 6.2% // 11.20 - 9.6% Mode Garcia PA-C [address] [facility] [address], [place], [address] , [facility] 0 17:04:54 Influenz a vaccine needed 84741713098 06 Completed 201002/12/2014 DATE: 08/18/19 11; RECORDED 02/29/20 12 4:20PM BY SAIDA LOVE MA, ANNOTATI ON/ADDEN DUM Pamela orantes [facility] 6 14:59:31 Administ ration of bacteria l and viral vaccine Completed 200802/12/2014 RECORDED 04/14/20 09 9:17AM BY SAIDA LOVE MA, OFFICE VISIT Pamela orantes, [facility] 6 14:59:31 Obesity 430424052 Active 2012 Pamela orantes, [facility] 6 14:59:31 Obstruct jasmin sleep apnea syndrome 60787919 Active 2012 Pamela Musa null, [facility] 6 14:59:31 Osteoart hritis 596582337 Active 2012 Pamela orantes [facility] 6 14:59:31 Referred otalgia 91275850 Completed 201102/12/2014 RECORDED 02/29/20 12 4:20PM BY SAIDA LOVE MA, ANNOTATI ON/ADDEN DUM Pamela Musa null, [facility] 6 14:59:31 Screenin g for malignan t neoplasm of colon Completed 201102/12/2014 RECORDED 02/29/20 12 4:20PM BY SAIDA LOVE MA, ANNOTATI ON/ADDEN DUM Pamela Musa null, [facility] 6 14:59:31 Adult health examinat ion Completed 201203/04/2014 RECORDED 05/22/20 13 4:02PM BY NATASHA OHARA MA, ANNOTATI ON/ADDEN DUM Pamela Musa null, [facility] 6 14:59:31 Conjunct ivitis 4117678 Completed 201103/04/2014 RECORDED 02/29/20 12 4:20PM BY SAIDA LOVE MA, ANNOTATI ON/ADDEN DUM Pamela Musa null, [facility] 6 14:59:31 Malaise and fatigue 359990821 Completed 201103/04/2014 RECORDED 02/29/20 12 4:20PM BY SAIDA LOVE MA, ANNOTATI ON/ADDEN DUM Pamela orantes, [facility] 6 14:59:31 Influenz a vaccine needed 77708042625 06 Completed 201003/04/2014 DATE: 08/18/19 11; RECORDED 02/29/20 12 4:20PM BY SAIDA LOVE MA, ANNOTJING ON/ADDEN DUM Pamela orantes, [facility] 6 14:59:31 Administ ration of bacteria l and viral vaccine Completed 200803/04/2014 RECORDED 04/14/20 09 9:17AM BY SAIDA LOVE MA, OFFICE VISIT Pamela orantes [facility] 6 14:59:31 Referred otalgia 43482360 Completed 201103/04/2014 RECORDED 02/29/20 12 4:20PM BY SAIDA LOVE MA, ANNOTATI ON/ADDEN DUM Pamela orantes, [facility] 6 14:59:31 Screenin g for malignan t neoplasm of colon Completed 201103/04/2014 RECORDED 02/29/20 12 4:20PM BY SAIDA LOVE MA, ANNOTATI ON/ADDEN DUM Pamela orantes, [facility] 6 14:59:31 Body mass index 30+ - obesity 491454531 Completed 06/13/2019 Removal Reason: dx changed Adela orantes [facility] 9 15:51:20 Tinea pedis 4956235 Active aPmela orantes [facility] 6 14:59:31 Allergic rhinitis 99654592 Active Pamela orantes [facility] 6 14:59:31 Dependen ce on biphasic positive airway pressure ventilat ion 507275801 Active 2013 bi-PAP machine FARAZ Solorzano [facility] 7 09:36:48 Serum ferritin above referenc e range 311757636 Completed 202003/05/2024 Mode Garcia PA-C [address], [place], [address] , [facility] 4 09:24:56 Hemochro matosis 791207096 Active 2020 Mode Garcia PA-C [address], [place], [address] , [facility] 1 13:13:24 Eczema 28760731 Active 2021 Mode Garcia PA-C [address], [place], [address] , [facility] 2 11:12:49 History of polyp of colon 854384354 Active 2022 Mode Garcia PA-C [address], [place], [address] , [facility] 3 15:57:39 Deviated nasal septum 752146148 Active 2024 Mode Garcia PA-C [address], [place], [address] , [facility] 5 16:19:23 Impaired fasting glycemia 703102411 Active 2024 Mode Garcia PA-C [address], [place], [address] , [facility] 5 16:24:29 Heart murmur 80858302 Active 2024 Mode Garcia PA-C [address], [place], [address] , [facility] 5 16:33:00 Problem Notes None recorded. Procedures Surgical History Date Name Laterality Status Provider Name and Address Organization Details Recorded Time 2 [facility] 15:11:44 1 EGD completed [facility] 09/17/2020 09:36:11 Imaging Results None recorded. [...] lansopraz ole 30 mg capsule,d elayed release TAKE ONE CAPSULE BY MOUTH ONCE DAILY BEFORE A MEAL 2024 active Not Available Not Available Not Avai lable nystatin- triamcino lone 100,000 unit/g-0. 1 % [...] Updated DateTime 5 193.04 cm 38.1 kg/m2 283866. 41 g 62 /min 98 % 98 % 98 [degF] 155 mm[Hg] 83 mm[Hg] Shyanne Green MA [facility] 5 16:10:56 Date Recorded Systolic blood pressure Diastolic blood pressure Provider Name and Address Organization Details Last Updated DateTime 09/05/2024 136 mm[Hg] 78 mm[Hg] Mode Garcia PA-C [address], [address], [facility] 09/05/2024 16:36:36 Social History Question Answer Notes LastModified by Organizat ion Details LastModified Time Tobacco Smoking Status Never Smoker Saida Jorge MA null, [facility] 04/09/2014 13:57:49 Do You Have An Advance Directive? 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 No Pt Tested At [facility] 04/13/2021=ne true Information not available 06/30/2020 Have You Recently Traveled To A COVID-19 High Risk Area Or Gathering In The Last 10 Days? No [email or web address] Information not available 10/06/2020 What Was The [...] History Condition Response Acid Reflux (GERD) Y High Cholesterol Y Reflux/GERD Y Hypertension Y Immunizations Vaccine Type Date Status Note Provider Manny shannon and Address Organization Details Recorded Time Tdap 12/24/19 15 completed Nolan Bee MD [address] [address], [place], [address], [facility] 04/10/2015 09:16:26 COVID-19 vaccine, vector-nr, rS-Ad26, PF, 0.5 mL 10/27/19 21 completed Maren Donnelly MA null, [facility] 07/09/2021 15:56:36 COVID-19, mRNA, LNP-S, PF, 30 mcg/0.3 mL dose 07/21/20 21 completed Shyanne Green MA null, [facility] 08/31/2021 11:33:32 Influenza, split virus, quadrivalent, PF 04/11/20 17 cancelled patient objection Not Available [facility] 08/11/2019 02:22:07 zoster recombinant 12/24/19 20 cancelled patient objection Mode Garcia PA-C [address] [address], [place], [address], [facility] 12/24/2019 17:04:31 Influenza, split virus, quadrivalent, PF 05/13/20 21 cancelled patient objection Mode Garcia PA-C [address] [address], [place], [address], [facility] 05/13/2021 17:32:30 Tdap 04/14/20 09 completed Not Available [facility] 02/05/2014 14:04:51 Past Encounters Encounter ID Performer Location Encounter Start Date Encounter Closed Date Diagnosis/Indication Diagnosis SNOMED-CT Code Diagnosis ICD10 Code Diagnosis Note [id number] Mode Garcia PA-C Main Office [address] [phone] 09/05/2024 15:45:40 09/05/2024 16:44:38 Hyperlipidemia 36457983 E78.2 ldl ~ stable - cont statin as dir Essential hypertension 00596120 I10 bp elevated - cont med as [...] meds as dir Deviated nasal septum 12 3201158 J34.2 pending see ent 6.25cont ns spray, steam Hemochromatosis 92812161 6 E83.119 had recent liver mri & echo / pending cardiac mri, cont f/u c hem/onc 2.25 - stable, cont phlebotomy monthly, cont c hem/onc q 6 months Impaired f asting glycemia 109474054 R73.01 A1c 5.3 - offered reassuranc e - no evidence of predm, but still encouraged wt loss d/t obesity and ankit Heart murmur 79723350 R0 1.1 Health Concerns Section Related Observation LastModified by Organization Detai ls LastModified Time None Recorded Concern Status LastModified by Organization Details LastModified Time None Recorded Payers Encounter Date Sequence Insurance Name Policy Number Policy Solares Covered Member ID Solares Member ID Guarantor Name 09/05/2024 1 MARCELA-[place]: Deanne GANNON [id number] Naveen Mayen [id number] Naveen Mayen Notes Date Note Type Note Provider Name and Address Organization Details Recorded Time 09/05/2024 text/html Hypertension F/UReported bypatient.Associat ed Symptoms:no dizziness; no lightheadedness; no chest pain; no shortness of breath; no palpitations; no edema; no calf pain with exertion Lifestyle:regular exercise; limiting/avoiding salt Medications:taking medications as directed; no side effects from medication Mode Garcia PA-C [address] [address], [place], [address], [facility] 09/05/2024 20:38:55
--- OUTSIDE RECORDS SUMMARY | 2024-10-05 08:11 | XMS_ITS | Data Portability ---
Author Organization [facility], Main Office Address [address] [place] [address] [place] [id number] Care Team Providers Care Administrative Dietitian Name Role Phone KATIE GARCIA Primary Care Provider KATINA ROBERTS Dietitian Therapeutic REINALDO SOL Body Worker [phone] PRASANTH POND Senior Applications Architect UNIQUE JOHNSON Choral Teacher Assessment No assessment recorded. Plan of Treatment Reminders Order Date Submit Date Provider Last Modified By Organization Details Last Modified Time Details Appointments PE EST 2024 08:45A M Katie Garcia PAGenie Not available Not available Not available Lab HbA1c (hemog lobin A1c), blood 2024 025 pmadden [facility] (Centralized Electronic Ordering - All Locations), Patient Can Go To The Location Of Their Choice, [id number] 09/05/2024 16:37:57 BMP, serum or plasma 2024 025 pmadden [facility] (Centralized Electronic Ordering - All Locations), Patient Can Go To The Location Of Their Choice, [id number] 09/05/2024 16:37:57 rapid SARS CoV 2 Ag, QL IA, respir atory specim en 2023 024 pmadden In-Office Order, Internal Use Only DO Not Attach Compendium DO Not Attach Compendium, Do Not Delete/merge, [id number] 07/11/2024 12:04:23 rapid flu (A+B) 2023 024 MIRIAN In-Office Order, Internal Use Only DO Not Attach Compendium DO Not Attach Compendium, Do Not Delete/merge, [id number] 07/11/2024 12:13:24 HbA1c (hemog lobin A1c), blood 2023 024 MIRIAN [facility] (Centralized [facility] Ordering - All Locations), Patient Can Go To The Location Of Their Choice, [id number] 07/03/2024 14:06:52 PSA, total, serum or plasma 2023 024 MIRIAN [facility] (Centralized Electronic Ordering - All Locations), Patient Can Go To The Location Of Their Choice, [id number] 07/03/2024 14:06:53 lipid panel, serum 2023 024 MIRIAN [facility] (Centralized Electronic Ordering - All Locations), Patient Can Go To The Location Of Their Choice, [id number] 07/03/2024 14:06:51 CMP, serum or plasma 2023 024 MIRIAN [facility] (Centralized Electronic Ordering - All Locations), Patient Can Go To The Location Of Their Choice, [id number] 07/03/2024 14:06:50 CBC w/ auto diff 2023 024 MIRIAN [facility] (Centralized Electronic Ordering - All Locations), Patient Can Go To The Location Of Their Choice, [id number] 07/03/2024 14:06:49 Referral otolar igo muñoz referr al 2023 024 MATHIAS [facility] , [address], [address], [place], [address], 08/13/2024 08:19:13 nutrit ionist /dieti sarbjit referr al 2023 024 Not available 03/05/2024 10:02:15 Procedures None record ed. Surgeries None record ed. Imaging US, echoca rdiogr am - please compar sharon muñiz mri 3.6.23 2024 025 [id number] [facility], [address] , [place], [address], 09/13/2024 11:46:35 Medication Orders amoxic illin 875 mg-pot assium clavul anate 125 mg tablet 2023 025 [facility]/Pharmacy #[id number], [address] [place], [address], 09/05/2024 16:10:07 lansop razole 30 mg capsul e,renuka yed releas e 2023 024 [email or web address] Not available 09/17/2024 13:44:13 lisino pril 5 mg tablet 2022 023 [facility]/Pharmacy #[id number], [address] [place], [address], 03/24/2023 16:31:04 lansop razole 30 mg capsul e,renuka yed releas e 2022 023 mchasen Not available 03/25/2023 08:34:52 Patient Targets Encounter Date Encounter Id Patient Goals Patient Target Last Modified By Organization Details Last Modified Time 03/24/2023 [id number] detention goal of Blood Pressure 140 / 90 Not available Not available Not available detention goal of Exercise level Not available Not available Not available detention goal of Tobacco Smoking Status Not available [...] goal. 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 pmadden Not available 09/28/2023 17:19:54 03/05/2024 [id number] detention goal of Blood Pressure 140 / 90 Not available Not available Not available ferry terminal supervisor goal of Exercise level Not available Not available Not available detention goal of Tobacco Smoking Status Not available Not available Not available detention goal of Excess Body Weight Loss % [...] goals. pmadden Not available 03/05/2024 09:28:32 09/05/2024 [id number] detention goal of Blood Pressure 140 / 90 Not available Not available Not available ferry terminal supervisor goal of Exercise level Not available Not available Not available ferry terminal supervisor goal of Tobacco Smoking Status Not available [...] By Organization Details Last Modified Time 03/24/2023 [id number] high blood pressure: care instructions pmadden Not [...] medication. pmadden Not available 03/24/2023 17:01:13 09/28/2023 [id number] Medications (OTC , herbal therapies, supplements) reviewed and reconciled with patient and or caregiver, including potential side effects, drug interactions, instructions, and the consequences of not taking medication. Reviewed potential barriers to medication adherence, such as side effects from medication or cost of medication. pmadden Not available 09/28/2023 17:20:36 03/05/2024 [id number] Prostate Cancer Screening pmadden Not available 03/05/2024 [...] medication. pmadden Not available 03/05/2024 09:29:04 07/11/2024 [id number] Acute Sinusitis: Care Instructions pmadden Not available 07/11/2024 12:37:21 saline nasal washes: care instructions pmadden Not available 07/11/2024 12:37:21 eustachian tube problems: care instructions pmadden Not available 07/11/2024 12:37:21 Follow up if no improvement or if symptoms worsen. pmadden Not available 07/11/2024 13:16:38 09/05/2024 [id number] Medications (OTC , herbal therapies, supplements) reviewed and reconciled with patient and or caregiver, including potential side effects, drug interactions, instructions, and the consequences of not taking medication. Reviewed potential barriers to medication adherence, such as side effects from medication or cost of medication. 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 Cook Cold Meat/dietitian Refer ral for Body mass index 30+ - obesity Referring Physician: Katie Garcia, Internal Medicine, Encounter Date: 03/05/2024 Client Coordinator Referral fo r Deviated nasal septum Referring Physician: Katie Garcia, Internal Medicine, Encounter Date: 07/11/2024 Results Created Date Observation Date Name Description Value Unit Range Abnormal Flag Note LastModifiedBy Organization Detail LastModifiedTime 09/24/1909/24/2023 LIPID PANEL results Dupli mihir Order Not Available [facility] (Centralized Electronic Ordering - All Locations) Patient Can Go To The Location Of Their Choice, 09/24/2023 07:28:25 09/24/1909/24/2023 COMPR EHENS CINDY METAB OLIC PANL glucose 111 mg/dL (70-99 ) high Not Available [facility] (Centralized Electronic Ordering - All Locations) Patient Can Go To The Location Of Their Choice, 09/24/2023 09:22:44 09/24/1909/24/2023 COMPR EHENS CINDY METAB OLIC PANL BUN 22 mg/dL (6-20) high Not Available [facility] (Centralized Electronic Ordering - All Locations) Patient Can Go To The Location Of Their Choice, 09/24/2023 09:22:44 09/24/1909/24/2023 COMPR EHENS CINDY METAB OLIC PANL creatinine 1.2 mg/dL (0.7-1 .2) Not Available [facility] (Centralized Electronic Ordering - All Locations) Patient Can Go To The Location Of Their Choice, 09/24/2023 09:22:44 09/24/1909/24/2023 COMPR EHENS CINDY METAB OLIC PANL sodium 143 mmol/ L (133-1 45) Not Available [facility] (Centralized Electronic Ordering - All Locations) Patient Can Go To The Location Of Their Choice, 09/24/2023 09:22:44 09/24/1909/24/2023 COMPR EHENS CINDY METAB OLIC PANL potassium 4.2 mmol/ L (3.6-5 .2) Not Available [facility] (Centralized Electronic Ordering - All Locations) Patient Can Go To The Location Of Their Choice, 09/24/2023 09:22:44 09/24/1909/24/2023 COMPR EHENS CINDY METAB OLIC PANL chloride 108 mmol/ L (98-10 7) high Not Available [facility] (Centralized Electronic Ordering - All Locations) Patient Can Go To The Location Of Their Choice, 09/24/2023 09:22:44 09/24/1909/24/2023 COMPR EHENS ICNDY METAB OLIC PANL bicarbonate 22 mmol/ L (22-29 ) Not Available [facility] (Centralized Electronic Ordering - All Locations) Patient Can Go To The Location Of Their Choice, 09/24/2023 09:22:44 09/24/1909/24/2023 COMPR EHENS CINDY METAB OLIC PANL anion gap 13 (4-17) Not Available [facility] (Centralized Electronic Ordering - All Locations) Patient Can Go To The Location Of Their Choice, 09/24/2023 09:22:44 09/24/1909/24/2023 COMPR EHENS CINDY METAB OLIC PANL albumin 4.4 gm/dL (3.4-4 .8) Not Available [facility] (Centralized Electronic Ordering - All Locations) Patient Can Go To The Location Of Their Choice, 09/24/2023 09:22:44 09/24/1909/24/2023 COMPR EHENS CINDY METAB OLIC PANL calcium 9.6 mg/dL (8.6-1 0.5) Not Available [facility] (Centralized Electronic Ordering - All Locations) Patient Can Go To The Location Of Their Choice, 09/24/2023 09:22:44 09/24/1909/24/2023 COMPR EHENS CINDY METAB OLIC PANL bilirubin,to moy 0.7 mg/dL (0-1.2 ) Not Available [facility] (Centralized Electronic Ordering - All Locations) Patient Can Go To The Location Of Their Choice, 09/24/2023 09:22:44 09/24/1909/24/2023 COMPR EHENS CINDY METAB OLIC PANL total protein 6.9 gm/dL (6.2-8 .2) Not Available [facility] (Centralized Electronic Ordering - All Locations) Patient Can Go To The Location Of Their Choice, 09/24/2023 09:22:44 09/24/1909/24/2023 COMPR EHENS CINDY METAB OLIC PANL Ag ratio 1.8 Not Available [facility] (Centralized Electronic Ordering - All Locations) Patient Can Go To The Location Of Their Choice, 09/24/2023 09:22:44 09/24/19 24 09/24/2023 COMPR EHENS CINDY METAB OLIC PANL AST 18 U/L (0-40) Not Available [facility] ([facility]ized Electronic Ordering - All Locations) Patient Can Go To The Location Of Their Choice, 09/24/2023 09:22:44 09/24/19 24 09/24/2023 COMPR EHENS CINDY METAB OLIC PANL alk phos 105 U/L (40-12 9) Not Available [facility] ([facility]ized Electronic Ordering - All Locations) Patient Can Go To The Location Of Their Choice, 09/24/2023 09:22:44 09/24/1909/24/2023 COMPR EHENS CINDY METAB OLIC PANL ALT 19 U/L (0-41) Not Available [facility] ([facility]ized Electronic Ordering - All Locations) Patient Can Go To The Location Of Their Choice, 09/24/2023 09:22:44 09/24/1909/24/2023 COMPR EHENS CINDY METAB OLIC PANL estimated GFR creatinine 71 mL/mi n/1.7 3_M2 Creat inine based estim ated glome rular filtr ation (eGFR ) in adult s is calcu lated using the Natio nal Kidne y Found ation recom brandy d 2020 CKD-E PI equat ion. Estim ates GFR from serum creat inine , age and sex. Not Available [facility] (Centralized Electronic Ordering - All Locations) Patient Can Go To The Location Of Their Choice, 09/24/2023 09:22:44 09/24/1909/24/2023 LIPID PANEL cholesterol, total 168 mg/dL (<200) Not Available [facility] ([facility] - [facility] Locations) Patient Can Go To The Location Of Their Choice, 09/24/2023 09:22:45 09/24/1909/24/2023 LIPID PANEL triglyceride 71 mg/dL (<150) Not Available [facility] ([facility] - [facility] Locations) Patient Can Go To The Location Of Their Choice, 09/24/2023 09:22:45 09/24/1909/24/2023 LIPID PANEL HDL chol 40 mg/dL (>39) Not Available [facility] (Centralized Electronic Ordering - All Locations) Patient Can Go To The Location Of Their Choice, 09/24/2023 09:22:45 09/24/1909/24/2023 LIPID PANEL LDL cholesterol, calculated 114 mg/dL (0-130 ) Not Available [facility] ([facility]ized Electronic Ordering - All Locations) Patient Can Go To The Location Of Their Choice, 09/24/2023 09:22:45 09/24/1909/24/2023 LIPID PANEL non HDL cholesterol (calc) 128 mg/dL (<160) Not Available [facility] ([facility] Order[facility] - All Locations) Patient Can Go To The Location Of Their Choice, 09/24/2023 09:22:45 09/24/1909/24/2023 CK,TO MOY ONLY CK,total only 108 U/L (0-310 ) Not Available [facility] ([facility]ized Electronic Ordering - All Locations) Patient Can Go To The Location Of Their Choice, 09/24/2023 09:22:46 09/24/1909/24/2023 HEMOG LOBIN A1C hemoglobin A1C 5.3 % [...] of Clini tyler and Appli ed Resea [facility] and Educa tion Volum e 43, Suppl ement 1 Not Available [facility] (Centralized Electronic Ordering - All Locations) Patient Can Go To The Location Of Their Choice, [id number] 09/24/2023 10:29:34 07/01/20 24 07/02/2024 CBC WITH DIFFE RENTI AL/PL ATELE T WBC 5.9 x10e3 /uL 3.4-10 .8 normal Not Available [facility] ([facility]) [address] [place], [address], 07/03/2024 14:06:49 07/01/20 24 07/02/2024 CBC WITH DIFFE RENTI AL/PL ATELE T RBC 4.40 x10e6 /uL 4.14-5 .80 normal Not Available [facility] ([facility]) [address] [place], [address], 07/03/2024 14:06:49 07/01/20 24 07/02/2024 CBC WITH DIFFE RENTI AL/PL ATELE T hemoglobin 12.3 g/dL 13.0-1 7.7 below low normal Not Available [facility] ([facility]) [address] [place], [address], 07/03/2024 14:06:49 07/01/20 24 07/02/2024 CBC WITH DIFFE RENTI AL/PL ATELE T hematocrit 38.3 % 37.5-5 1.0 normal Not Available [facility] ([facility]) [address] [place], [address], 07/03/2024 14:06:49 07/01/20 24 07/02/2024 CBC WITH DIFFE RENTI AL/PL ATELE T MCV 87 fL 79-97 normal Not Available [facility] ([facility]) [address] [place], [address], 07/03/2024 14:06:49 07/01/20 07/02/2024 CBC WITH DIFFE RENTI AL/PL ATELE T MCH 28.0 pg 26.6-3 3.0 normal Not Available [facility] ([facility]) [address] [place], [address], 07/03/2024 14:06:49 07/01/20 24 07/02/2024 CBC WITH DIFFE RENTI AL/PL ATELE T MCHC 32.1 g/dL 31.5-3 5.7 normal Not Available [facility] ([facility]) [address] [place], [address], 07/03/2024 14:06:49 07/01/20 24 07/02/2024 CBC WITH DIFFE RENTI AL/PL ATELE T RDW 13.1 % 11.6-1 5.4 Not Available [facility] ([facility]) [address] [place], [address], 07/03/2024 14:06:49 07/01/20 24 07/02/2024 CBC WITH DIFFE RENTI AL/PL ATELE T platelets 323 x10e3 /uL 150-45 0 normal Not Available [facility] ([facility]) [address] [place], [address], 07/03/2024 14:06:49 07/01/20 24 07/02/2024 CBC WITH DIFFE RENTI AL/PL ATELE T neutrophils 60 % not estab. normal Not Available [facility] ([facility]) [address] [place], [address], 07/03/2024 14:06:49 07/01/20 24 07/02/2024 CBC WITH DIFFE RENTI AL/PL ATELE T lymphs 29 % not estab. normal Not Available [facility] ([facility]) [address] [place], [address], 07/03/2024 14:06:49 07/01/20 24 07/02/2024 CBC WITH DIFFE RENTI AL/PL ATELE T monocytes 5 % not estab. normal Not Available [facility] ([facility]) [address] [facility], [place], [address], 07/03/2024 14:06:49 07/01/20 24 07/02/2024 CBC WITH DIFFE RENTI AL/PL ATELE T eos 4 % not estab. normal Not Available [facility] ([facility]) [address] [facility], [place], [address], 07/03/2024 14:06:49 07/01/20 24 07/02/2024 CBC WITH DIFFE RENTI AL/PL ATELE T basos 1 % not estab. normal Not Available [facility] ([facility]) [address] [facility], [place], [address], 07/03/2024 14:06:49 07/01/20 24 07/02/2024 CBC WITH DIFFE RENTI AL/PL ATELE T immature cells FRUIT SPRAYER Not Available [facility] ([facility]) [address] [place], [address], 07/03/2024 14:06:49 07/01/20 24 07/02/2024 CBC WITH DIFFE RENTI AL/PL ATELE T neutrophils (absolute) 3.6 x10e3 /uL 1.4-7. 0 normal Not Available [facility] ([facility]) [address] [place], [address], 07/03/2024 14:06:49 07/01/20 24 07/02/2024 CBC WITH DIFFE RENTI AL/PL ATELE T lymphs (absolute) 1.7 x10e3 /uL 0.7-3. 1 normal Not Available [facility] ([facility]) [address] [place], [address], 07/03/2024 14:06:49 07/01/20 24 07/02/2024 CBC WITH DIFFE RENTI AL/PL ATELE T monocytes(ab solute) 0.3 x10e3 /uL 0.1-0. 9 normal Not Available [facility] ([facility]) [address] [facility], [place], [address], 07/03/2024 14:06:49 07/01/20 24 07/02/2024 CBC WITH DIFFE RENTI AL/PL ATELE T eos (absolute) 0.2 x10e3 /uL 0.0-0. 4 normal Not Available [facility] ([facility]) [address] [facility], [place], [address], 07/03/2024 14:06:49 07/01/20 24 07/02/2024 CBC WITH DIFFE RENTI AL/PL ATELE T baso (absolute) 0.0 x10e3 /uL 0.0-0. 2 normal Not Available [facility] ([facility]) [address] [facility], [place], [address], 07/03/2024 14:06:49 07/01/20 24 07/02/2024 CBC WITH DIFFE RENTI AL/PL ATELE T immature granulocytes 1 % not estab. Not Available [facility] ([facility]) [address] [facility], [place], [address], 07/03/2024 14:06:49 07/01/20 24 07/02/2024 CBC WITH DIFFE RENTI AL/PL ATELE T immature grans (abs) 0.1 x10e3 /uL 0.0-0. 1 Not Available [facility] ([facility]) [address] [facility], [place], [address], 07/03/2024 14:06:49 07/01/20 24 07/02/2024 CBC WITH DIFFE RENTI AL/PL ATELE T NRBC FRUIT SPRAYER Not Available [facility] ([facility]) [address] [place], [address], 07/03/2024 14:06:49 07/01/20 24 07/02/2024 CBC WITH DIFFE RENTI AL/PL LETICAI T hematology comments: FRUIT SPRAYER Not Available [facility] ([facility]) [address] [facility], [place], [address], 07/03/2024 14:06:49 07/01/20 24 07/03/2024 COMP. METAB OLIC PANEL (14) glucose 108 mg/dL 70-99 above high normal Not Available [facility] ([facility]) [address] [facility], [place], [address], 07/03/2024 14:06:50 07/01/20 24 07/03/2024 COMP. METAB OLIC PANEL (14) BUN 20 mg/dL 6-24 normal Not Available [facility] ([facility]) [address] [facility], [place], [address], 07/03/2024 14:06:50 07/01/20 24 07/03/2024 COMP. METAB OLIC PANEL (14) creatinine 1.17 mg/dL 0.76-1 .27 normal Not Available [facility] ([facility]) [address] [facility], [place], [address], 07/03/2024 14:06:50 07/01/20 24 07/03/2024 COMP. METAB OLIC PANEL (14) eGFR 72 mL/mi n/1.7 3 >59 normal Not Available [facility] ([facility]) [address] [facility], [place], [address], 07/03/2024 14:06:50 07/01/20 24 07/03/2024 COMP. METAB OLIC PANEL (14) BUN/creatini ne ratio 17 9-20 normal Not Available [facility] ([facility]) [address] [facility], [place], [address], 07/03/2024 14:06:50 07/01/20 24 07/03/2024 COMP. METAB OLIC PANEL (14) sodium 140 mmol/ L 134-14 4 normal Not Available [facility] ([facility]) [address] [place], [address], 07/03/2024 14:06:50 07/01/20 24 07/03/2024 COMP. METAB OLIC PANEL (14) potassium 4.6 mmol/ L 3.5-5. 2 normal Not Available [facility] ([facility]) [address] [place], [address], 07/03/2024 14:06:50 07/01/20 24 07/03/2024 COMP. METAB OLIC PANEL (14) chloride 105 mmol/ L 96-106 normal Not Available [facility] ([facility]) [address] [place], [address], 07/03/2024 14:06:50 07/01/20 24 07/03/2024 COMP. METAB OLIC PANEL (14) carbon dioxide, total 23 mmol/ L 20-29 normal Not Available [facility] ([facility]) [address] [place], [address], 07/03/2024 14:06:50 07/01/20 24 07/03/2024 COMP. METAB OLIC PANEL (14) calcium 9.2 mg/dL 8.7-10 .2 normal Not Available [facility] ([facility]) [address] [facility] [place], [address], 07/03/2024 14:06:50 07/01/20 24 07/03/2024 COMP. METAB OLIC PANEL (14) protein, total 6.8 g/dL 6.0-8. 5 normal Not Available [facility] ([facility]) [address] [place], [address], 07/03/2024 14:06:50 07/01/20 24 07/03/2024 COMP. METAB OLIC PANEL (14) albumin 4.0 g/dL 3.8-4. 9 normal Not Available [facility] ([facility]) [address] [facility] [place], [address], 07/03/2024 14:06:50 07/01/20 24 07/03/2024 COMP. METAB OLIC PANEL (14) globulin, total 2.8 g/dL 1.5-4. 5 Not Available [facility] ([facility]) [address] [facility] [place], [address], 07/03/2024 14:06:50 07/01/20 24 07/03/2024 COMP. METAB OLIC PANEL (14) bilirubin, total 0.3 mg/dL 0.0-1. 2 normal Not Available [facility] ([facility]) [address] [facility] [place], [address], 07/03/2024 14:06:50 07/01/20 24 07/03/2024 COMP. METAB OLIC PANEL (14) alkaline phosphatase 103 IU/L 44-121 normal Not Available [facility] ([facility]) [address] [facility] [place], [address], 07/03/2024 14:06:50 07/01/20 24 07/03/2024 COMP. METAB OLIC PANEL (14) AST (SGOT) 17 IU/L 0-40 normal Not Available [facility] ([facility]) [address] [facility] [place], [address], 07/03/2024 14:06:50 07/01/20 24 07/03/2024 COMP. METAB OLIC PANEL (14) ALT (SGPT) 15 IU/L 0-44 normal Not Available [facility] ([facility]) [address] [facility] [place], [address], 07/03/2024 14:06:50 07/01/20 24 07/03/2024 LIPID PANEL cholesterol, total 142 mg/dL 100-19 9 normal Not Available [facility] ([facility]) [address] [facility] [place], [address], 07/03/2024 14:06:51 07/01/20 24 07/03/2024 LIPID PANEL triglyceride s 55 mg/dL 0-149 normal Not Available [facility] ([facility]) [address] [place], [address], 07/03/2024 14:06:51 07/01/20 24 07/03/2024 LIPID PANEL HDL cholesterol 36 mg/dL >39 below low normal Not Available [facility] ([facility]) [address] [place], [address], 07/03/2024 14:06:51 07/01/20 24 07/03/2024 LIPID PANEL VLDL cholesterol tyler 12 mg/dL 5-40 Not Available [facility] ([facility]) [address] [place], [address], 07/03/2024 14:06:51 07/01/20 24 07/03/2024 LIPID PANEL LDL chol calc ([facility]) 94 mg/dL 0-99 Not Available [facility] ([facility]) [address] [place], [address], 07/03/2024 14:06:51 07/01/20 24 07/03/2024 LIPID PANEL LDL calc comment: FRUIT SPRAYER Not Available [facility] ([facility]) [address] [place], [address], 07/03/2024 14:06:51 07/01/20 24 07/03/2024 HEMOG LOBIN A1C hemoglobin A1C 5.3 % 4.8-5. 6 normal Predi abete s: 5.7 - 6.4 Diabe cat: >6.4 Glyce ivet contr ol for adult s with diabe cat: <7.0 Not Available [facility] ([facility]) [address] [place], [address], 07/03/2024 14:06:52 07/01/20 24 07/03/2024 PROST ATE-S [...] kits canno t be used inter nicholas eably . Resul ts canno t be inter prete d as absol [place] evide nce of the prese nce or absen ce of sunshine galo se. Not Available [facility] ([facility]) [address] [facility], [place], [address], 07/03/2024 14:06:53 07/11/20 24 07/11/2024 rapid flu (A+B) Flu A negati ve Not Available In-Office Order Internal Use Only DO Not Attach Compendium DO Not Attach Compendium, Do Not Delete/merge, [id number] 07/11/2024 11:40:25 07/11/20 24 07/11/2024 rapid flu (A+B) Flu B negati ve Not Available In-Office Order Internal Use Only DO Not Attach Compendium DO Not Attach Compendium, Do Not Delete/merge, [id number] 07/11/2024 11:40:25 07/11/20 24 07/11/2024 rapid SARS CoV 2 Ag, QL IA, respi rator y speci men RAPID SARS COV 2 negati ve Not Available In-Office Order Internal Use Only DO Not Attach Compendium DO Not Attach Compendium, Do Not Delete/merge, [id number] 07/11/2024 11:40:03 09/07/19 25 09/27/2022 MRI, heart funct ion [...] MA, FRANCISCO J ON/ADDEN DUM Pamela orantes [facility] 6 14:59:31 Dependen ce on enabling machine or device [id number] Completed 201304/11/2017 BiPAP machine at bedtime FARAZ Solorzano [facility] 7 09:36:26 Conjunct ivitis [id number] Completed 201102/12/2014 RECORDED 02/29/20 12 4:20PM BY EDUIN LOVE MA, FRANCISCO J ON/ADDEN DUM Pamela orantes [facility] 6 14:59:31 Gastroes ophageal reflux disease [id number] Active 2012 STORY: TREATMEN T FAILURE WITH OMEPRAZO LE. STABLE ON PREVACID FARAZ Solorzano [facility] 6 09:20:40 [facility] hyperten arlin 23069440 Active 2012 Pamela orantes [facility] 6 14:59:31 Malaise and fatigue 721461830 Completed 201102/12/2014 RECORDED 02/29/20 12 4:20PM BY EDUIN LOVE MA, FRANCISCO J ON/ADDEN DUM Pamela orantes [facility] 6 14:59:31 Hyperlip idemia 54357376 Active 2012 5.19 - ascvd risk of 6.2% // 11.20 - 9.6% Katie Garcia PA-C [address] [address], [place], [address] , [facility] 0 17:04:54 Influenz a vaccine needed 72961132848 06 Completed 201002/12/2014 DATE: 08/18/19 11; RECORDED 02/29/20 12 4:20PM BY EDUIN LOVE MA, ANNOTATI ON/ADDEN DUM Pamela orantes [facility] 6 14:59:31 Administ ration of bacteria l and viral vaccine Completed 200802/12/2014 RECORDED 04/14/20 09 9:17AM BY EDUIN LOVE MA, OFFICE VISIT Pamela orantes [facility] 6 14:59:31 Obesity 251307712 Active 2012 Pamela orantes [facility] 6 14:59:31 Obstruct cindy sleep apnea syndrome 44768278 Active 2012 Pamela orantes [facility] 6 14:59:31 Osteoart hritis 333366754 Active 2012 Pamela orantes [facility] 6 14:59:31 Referred otalgia 71824907 Completed 201102/12/2014 RECORDED 02/29/20 12 4:20PM BY EDUIN LOVE MA, ANNOTATI ON/ADDEN DUM Pamela Musathom orantes, [facility] 6 14:59:31 Screenin g for malignan t neoplasm of colon Completed 201102/12/2014 RECORDED 02/29/20 12 4:20PM BY EDUIN LOVE MA, ANNOTATI ON/ADDEN DUM Pamelathom orantes, [facility] 6 14:59:31 Adult health examinat ion Completed 201203/04/2014 RECORDED 05/22/20 13 4:02PM BY NATASHA OHARA MA, ANNOTATI ON/ADDEN DUM Pamela Musa null, [facility] 6 14:59:31 Conjunct ivitis 0131583 Completed 201103/04/2014 RECORDED 02/29/20 12 4:20PM BY EDUIN LOVE MA, ANNOTJING ON/ADDEN DUM Pamela orantes, [facility] 6 14:59:31 Malaise and fatigue 421390228 Completed 201103/04/2014 RECORDED 02/29/20 12 4:20PM BY EDUIN LOVE MA, ANNOTATI ON/ADDEN DUM Pamela orantes, [facility] 6 14:59:31 Influenz a vaccine needed 91656255053 06 Completed 201003/04/2014 DATE: 08/18/19 11; RECORDED 02/29/20 12 4:20PM BY EDUIN LOVE MA, FRANCISCO J ON/ADDEN DUM Pamela orantes [facility] 6 14:59:31 Administ ration of bacteria l and viral vaccine Completed 200803/04/2014 RECORDED 04/14/20 09 9:17AM BY EDUIN LOVE MA, OFFICE VISIT Pamela orantes [facility] 6 14:59:31 Referred otalgia 31507121 Completed 201103/04/2014 RECORDED 02/29/20 12 4:20PM BY EDUIN LOVE MA, FRANCISCO J ON/ADDEN DUM Pamela orantes [facility] 6 14:59:31 Screenin g for malignan t neoplasm of colon Completed 201103/04/2014 RECORDED 02/29/20 12 4:20PM BY EDUIN LOVE MA, FRANCISCO J ON/ADDEN DUM Pamela orantes [facility] 6 14:59:31 Body mass index 30+ - obesity 011296086 Completed 06/13/2019 Removal Reason: dx changed Adela orantes [facility] 9 15:51:20 Tinea pedis 4222094 Active Pamela orantes, [facility] 6 14:59:31 Allergic rhinitis 57468058 Active Pamela orantes, [facility] 6 14:59:31 Dependen ce on biphasic positive airway pressure ventilat ion 072815606 Active 2013 bi-PAP machine Eduin Vahe guadarrama MA null, [facility] 7 09:36:48 Serum ferritin above referenc e range 047659865 Completed 202003/05/2024 Katie Garcia PA-C [address] [facility] [address], [place], [address] , [facility] 4 09:24:56 Hemochro matosis 928637720 Active 2020 Katie Garcia PA-C [address], [place], [address] , [facility] 1 13:13:24 Eczema 52513431 Active 2021 Katie Garcia PA-C [address] [facility] [address], [place], [address] , [facility] 2 11:12:49 History of polyp of colon 477639403 Active 2022 Katie Garcia PA-C [address] [facility] [address], [place], [address] , [facility] 3 15:57:39 Deviated nasal septum 339974779 Active 2024 Katie Garcia PA-C [address] [facility] [address], [place], [address] , [facility] 5 16:19:23 Impaired fasting glycemia 654271885 Active 2024 Katie Garcia PA-C [address], [place], [address] , [facility] 5 16:24:29 Heart murmur 07998407 Active 2024 Katie Garcia PA-C [address] [facility] [address], [facility] [place], [address] , [facility] 5 16:33:00 Problem Notes None recorded. Procedures Surgical History Date Name Laterality Status Provider Name and Address Organization Details Recorded Time 2 Colonoscopy completed Pamela Musa [facility] 01/05/2022 15:11:44 1 EGD completed Pamela [facility] 09/17/2020 09:36:11 Imaging Results Imaging Date Name Status LastModified by Organiz ation Details LastModified Time 09/27/2022 MRI, heart function and morphology, w/wo contrast completed [email or web address] Information not available 09/07/2024 13:24:15 Procedure Notes None recorded. Medical Equipment None [...] 193.04 cm 98.6 [degF] Eduin hooker MA [facility] 03/24/2023 16:05:13 Date Recorded Body mass index (BMI) Body weight Heart rate Oxygen saturation Oxygen saturation in Arterial blood by Pulse oximetry Systolic blood pressure Diastolic blood pressure Provider Name and Address Organization Details Last Updated DateTime 3 39.8 kg/m2 351144. 7 g 64 /min 97 % 97 % 151 mm[Hg] 75 mm[Hg] Geraldo Sheridan MA [facility] 3 16:00:31 Date Recorded Systolic blood pressure Diastolic blood pressure Provider Name and Address Organization Details Last Updated DateTime 03/24/2023 144 mm[Hg] 74 mm[Hg] Katie Garcia PA-C [address], [address], [facility] 03/24/2023 16:26:18 Date Recorded Body height Body mass index (BMI) Body weight Oxygen saturation Oxygen saturation in Arterial blood by Pulse oximetry Heart rate Body temperature Systolic blood pressure Diastolic blood pressure Provider Name and Address Organization Details Last Updated DateTime 4 193.04 cm 39.1 kg/m2 507075. 95 g 97 % 97 % 73 /min 98.7 [degF] 126 mm[Hg] 76 mm[Hg] Maryse Garcia MA [facility] 4 15:51:17 Date Recorded Body height Body mass index (BMI) Body weight Heart rate Oxygen saturation Oxygen saturation in Arterial blood by Pulse oximetry Body temperature Systolic blood pressure Diastolic blood pressure Provider Name and Address Organization Details Last Updated DateTime 4 193.04 cm 38.2 kg/m2 227745 g 73 /min 98 % 98 % 98.1 [degF] 161 mm[Hg] 85 mm[Hg] Kari Alfredo MA [facility] 4 08:36:42 Date Recorded Systolic blood pressure Diastolic blood pressure Provider Name and Address Organization Details Last Updated DateTime 03/05/2024 128 mm[Hg] 78 mm[Hg] Katie Garcia PA-C [address] [place] [address], [address], [facility] 03/05/2024 09:35:52 Date Recorded Body height Body mass index (BMI) Body weight Heart rate Oxygen saturation Oxygen saturation in Arterial blood by Pulse oximetry Body temperature Systolic blood pressure Diastolic blood pressure Provider Name and Address Organization Details Last Updated DateTime 4 193.04 cm 37.4 kg/m2 369650. 86 g 73 /min 96 % 96 % 99.4 [degF] 167 mm[Hg] 93 mm[Hg] Shyanne Green MA [facility] 4 11:36:38 Date Recorded Systolic blood pressure Diastolic blood pressure Provider Name and Address Organization Details Last Updated DateTime 07/11/2024 124 mm[Hg] 82 mm[Hg] Katie Garcia PA-C [address] [place] [address], [address], [facility] 07/11/2024 12:36:14 Date Recorded Body height Body mass index (BMI) Body weight Heart rate Oxygen saturation Oxygen saturation in Arterial blood by Pulse oximetry Body temperature Systolic blood pressure Diastolic blood pressure Provider Name and Address Organization Details Last Updated DateTime 5 193.04 cm 38.1 kg/m2 211390. 41 g 62 /min 98 % 98 % 98 [degF] 155 mm[Hg] 83 mm[Hg] [facility] 5 16:10:56 Date Recorded Systolic blood pressure Diastolic blood pressure Provider Name and Address Organization Details Last Updated DateTime 09/05/2024 136 mm[Hg] 78 mm[Hg] Katie Garcia PA-C [address] [facility] [address], [place], [address], [facility] 09/05/2024 16:36:36 Date Recorded Systolic blood pressure Diastolic blood pressure Provider Name and Address Organization Details Last Updated DateTime 05/13/2023 130 mm[Hg] 77 mm[Hg] Betsy Dickedin [facility] 07/12/2023 09:04:38 Social History Question Answer Notes LastModified by Organizat ion Details LastModified Time Tobacco Smoking Status Never Smoker FARAZ Gottlieb, [facility] 04/09/2014 13:57:49 Do You Have An Advance Directive? 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 No Pt Tested At [facility] 04/13/2021=ne gative Information not available 06/30/2020 Have You Recently Traveled To A COVID-19 High Risk Area Or Gathering In The Last 10 Days? No [email or web address] Information not available 10/06/2020 What Was The [...] Time Are you able to walk? [facility] Information not available 02/15/2022 Are you able [...] Tdap 12/24/19 15 completed Nolan Bee MD [address] [address], [place], [address], [facility] [place] 04/10/2015 09:16:26 COVID-19 vaccine, vector-nr, rS-Ad26, PF, 0.5 mL 10/27/19 21 completed FARAZ Schmidt, [facility] [place] 07/09/2021 15:56:36 COVID-19, mRNA, LNP-S, PF, 30 mcg/0.3 mL dose 07/21/20 21 completed FARAZ Pineda [facility] 08/31/2021 11:33:32 Influenza, split virus, quadrivalent, PF 04/11/20 17 cancelled patient objection Not Available [facility] 08/11/2019 02:22:07 zoster recombinant 12/24/19 20 cancelled patient objection Katie Navid GONZALEZC [address], [place], [address], [facility] 12/24/2019 17:04:31 Influenza, split virus, quadrivalent, PF 05/13/20 21 cancelled patient objection Katie Navid GONZALEZC [address], [place], [address], [facility] 05/13/2021 17:32:30 Tdap 04/14/20 09 completed Not Available [facility] 02/05/2014 14:04:51 Past Encounters Encounter ID Performer Location Encounter Start Date Encounter Closed Date Diagnosis/Indication Diagnosis SNOMED-CT Code Diagnosis ICD10 Code Diagnosis Note [id number] auto[facility]Comm erce [address] [facility] [place] [address] 04/26/2006 00:00:00 [id number] autoEComm erce [address] [facility] [place] [address] 02/16/2006 00:00:00 [id number] autoEComm erce [address] [facility] [place] [address] 04/19/2005 00:00:00 [id number] autoEComm erce [address] [facility] [place] [address] 10/18/2006 00:00:00 [id number] autoEComm erce [address] [facility] [place] [address] 04/12/2007 00:00:00 [id number] autoEComm erce [address] [facility] [place] [address] 10/09/2007 00:00:00 [id number] autoEComm erce [address] [facility] [place] [address] 01/08/2008 00:00:00 [id number] autoEComm erce [address] [facility] [place] [address] 09/03/2008 00:00:00 [id number] autoEComm erce [address] [facility] [place] [address] 10/30/2008 00:00:00 [id number] autoEComm erce [address] [facility] [place] [address] 04/14/2009 00:00:00 [id number] autoEComm erce [address] [facility] [place] [address] 11/11/2009 00:00:00 [id number] autoEComm erce [address] [facility] [place] [address] 11/24/2009 00:00:00 [id number] autoEComm erce [address] [facility] [place] [address] 08/18/2010 00:00:00 [id number] autoEComm erce [address] [facility] [place] [address] 02/17/2011 00:00:00 [id number] autoEComm erce [address] [facility] [place] [address] 08/31/2011 00:00:00 [id number] autoEComm erce [address] [facility] [place] [address] 02/29/2012 00:00:00 [id number] autoEComm erce [address] [facility] [place] [address] 11/21/2012 00:00:00 [id number] autoEComm erce [address] [facility] [place] [address] 05/22/2013 00:00:00 [id number] Kassidy Zachery Main Office [address] [facility] [address] [place] [address] 04/09/2014 13:43:19 04/09/2014 14:37:31 Essential hypertension 34055101 Hyperlipidemia 18238719 Gastroesop hageal reflux disease 434393913 Adult heal th examination 242609382 Body mass index 30+ - obesity 340891039 Tinea pedis 9311601 [id number] Nolan Bee MD Main Office [address] [address] [place] [address] 10/14/2014 15:31:51 10/14/2014 16:48:28 Essential hypertension 83129050 Gastroesop hageal reflux disease 401100996 Body mass index 30+ - obesity 200632069 823046 Main Office [address] [address] [place] [address] 04/10/2015 08:53:53 04/10/2015 09:47:10 Adult health examination 171622556 Essential hypertension 05925406 Hyperlipidemia 67792682 Obstructiv e sleep apnea syndrome 75126743 Body mass index 30+ - obesity 395011973 [id number] Nolan Bee MD Main Office [address] [address] [place] [address] 10/16/2015 15:50:17 10/16/2015 16:32:56 Essential hypertension 43315574 I10 Gastroesop hageal reflux disease 379744939 K21.9 Obstructiv e sleep apnea syndrome 30603517 G47.33 Allergic rhinitis 647765 04 J30.9 Body mass index 30+ - obesity 842724391 Z68.37 [id number] Nolan Bee MD Main Office [address] [address] [place] [address] 04/13/2016 09:02:56 04/13/2016 10:00:34 Adult health examination 644345535 Z00.00 Essential hypertension 34598921 I10 Obstructiv e sleep apnea syndrome 36605347 G47.33 Body mass index 30+ - obesity 904983686 Z68.37 Fatigue 41987032 R53.83 [id number] Nolan Bee MD Main Office [address] [address] [place] [address] 10/12/2016 16:11:42 10/12/2016 17:13:55 Essential hypertension 55654332 I10 Hyperlipidemia 82271307 E78.5 Fatigue 17409102 R53.83 Obstructiv e sleep apnea syndrome 13567324 G47.33 Continues to benefit from treatment. Followed by Dr. Roberts for pulmonary [id number] Nolan Bee MD Main Office [address] [facility] [address] [place] [address] 04/11/2017 09:31:51 04/11/2017 10:22:26 Essential hypertension 76417366 I10 Hyperlipidemia 81380256 E78.5 Immunization refused 275 536667 Z28.21 Obstructiv e sleep apnea syndrome 92336569 G47.33 Continues to benefit from treatment. Followed by Dr. Roberts for pulmonary [id number] Jonn Edmond MD Main Office [address] [address] [place] [address] 11/02/2017 15:41:28 11/02/2017 16:36:02 Adult health examination 600003116 Z00.00 Essential hypertension 96349448 I10 stable, cont med as dir Hyperlipidemia 27327116 E78.2 no meds, will cont to monitor - rec increase aerobic activity and decrease red meat intake Obstructiv e sleep apnea syndrome 17193921 G47.33 cont cpap, f/u c sleep med as dir Gastroesop hageal reflux disease 790016411 K21.9 cont ppi as dir Impacted c erumen in right ear 5544562304 943214 H61.21 mild Body mass index 30+ - obesity 127312390 Z68.38 [id number] Nolan Bee MD Main Office [address] [address] [place] [address] 06/05/2018 14:46:10 06/05/2018 16:12:57 Essential hypertension 96553526 I10 stable, cont med as dir Obesity 824265271 E66.9 Impaired f asting glycemia 091530147 R73.01 A1c 5.2 - offered reassuranc e - no evidence of predm, but still encouraged wt loss d/t obesity and ankit Gastroesop hageal reflux disease 821752276 K21.9 cont ppi as dir Body mass index 30+ - obesity 701423242 Z68.38 Obstructiv e sleep apnea syndrome 45747061 G47.33 cont cpap, f/u c sleep med as dir [id number] Adela Zapien Main Office [address] [place] [address] 11/06/2018 08:34:44 11/06/2018 09:37:36 Adult health examination 579317042 Z00.00 Essential hypertension 88983448 I10 stable, cont med as dir, check bmp Hyperlipidemia 79676507 E78.2 no meds, will cont to monitor - rec increase aerobic activity and decrease red meat intake Obstructiv e sleep apnea syndrome 42615808 G47.33 cont cpap, f/u c sleep med as dir Gastroesop hageal reflux disease 118843721 K21.9 cont ppi as dir, cont med as per GI - needs surveillan ce egd & colon Body mass index 30+ - obesity 558824457 Z68.38 has lost 15 lbs - encouraged pt to continue Impaired f asting glycemia 834432698 R73.01 A1c 5.2 - offered reassuranc e - no evidence of predm, but still encouraged wt loss d/t obesity and ankit Obesity 102397361 E66.9 [id number] Adela Zapien Main Office [address] [facility] [address] [facility] [place] [place] [address] 06/12/2019 15:31:18 06/12/2019 17:20:06 Essential hypertension 75072480 I10 ekg reviewed c AJC - see PE stable bp, cont med as dir - on BB Gastroesop hageal reflux disease 054998660 K21.9 cont ppi as dir as per GI - needs surveillan ce egd & colon in 2019 Impaired f asting glycemia 346649005 R73.01 A1c 5.0 - offered reassuranc e - no evidence of predm, but still encouraged wt loss d/t obesity and ankit Obstructiv e sleep apnea syndrome 16019545 G47.33 cont cpap, f/u c sleep med as dir Body mass index 30+ - obesity 595964549 Z68.38 Hyperlipidemia 06308747 E78.2 no meds -- 5.19 ascvd risk 6.2% - will cont to monitor - rec increase aerobic activity and decrease red meat intake Obesity 422174732 E66.9 [id number] Katie Garcia PA-C Main Office [address] [facility] [place] [address] 12/24/2019 15:50:25 12/24/2019 17:09:52 Adult health examination 247724127 Z00.00 Essential hypertension 70713463 I10 stable bp, cont med as dir - on BB Hyperlipidemia 90913057 E78.2 no meds -- 5.19 ascvd risk 6.2% - will cont to monitor - rec increase aerobic activity and decrease red meat intake Gastroesop hageal reflux disease 628272571 K21.9 cont ppi as dir as per GI - needs surveillan ce egd & colon in 2019- pending in a few months Impaired f asting glycemia 924111249 R73.01 A1c 5.0 - offered reassuranc e - no evidence of predm, but still encouraged wt loss d/t obesity and ankit Obstructiv e sleep apnea syndrome 56847858 G47.33 cont cpap, f/u c sleep med as dir Obesity 136704794 E66.9 Body mass index 30+ - obesity 475022802 Z68.38 Varicella vaccination 68 739650 Z23 [id number] Marcie Lowe Main Office [address] [place] [address] 02/11/2020 13:02:26 02/11/2020 14:02:00 Contact dermatitis 83044721 L25.9 LIkely contact dermatitis , due to large area would do prednisone taper as it is very itchy. Call if not improving within a few days to a week, sooner if worsening. Infestatio n by Sarcoptes scabiei jocelyn hominis 505660528 B86 Rash bears a close enough resemblanc e to scabies that I want to treat for this x1, pt agreeable. Wash all bedding and clothing in hot soapy water. [id number] Katie Garcia PA-C Main Office [address] [place] [address] 06/30/2020 15:45:48 07/01/2020 15:13:49 Essential hypertension 69010993 I10 stable bp, cont med as dir - on BB Hyperlipidemia 28906086 E78.2 no meds -- 5.19 - ascvd risk of 6.2% // 11.20 - 9.6% - pt declines statin at this time - will cont to monitor - rec increase aerobic activity and decrease red meat intake Impaired f asting glycemia 578595381 R73.01 A1c 5.0 - offered reassuranc e - no evidence of predm, but still encouraged wt loss d/t obesity and ankit Body mass index 30+ - obesity 785520739 E66.01 Z68.39 [id number] Katie Garcia PA-C Main Office [address] [address] [place] [address] 10/06/2020 15:31:06 10/07/2020 16:28:11 Essential hypertension 42472559 I10 stable bp, cont med as dir - on BB Hyperlipidemia 24962760 E78.2 no meds -- 5.19 - ascvd risk of 6.2% // 11.20 - 9.6% / 3.21 - 9.0% - pt declines statin at this time - - rec increase aerobic activity and decrease red meat intake, could consider red yeast rice Impaired f asting glycemia 695826765 R73.01 A1c 5.1 - offered reassuranc e - no evidence of predm, but still encouraged wt loss d/t obesity and ankit [id number] Nolan Bee MD Main Office [address] [address] [place] [address] 12/29/2020 15:29:31 12/29/2020 17:00:48 Adult health examination 267148576 Z00.00 Essential hypertension 38797450 I10 Hyperlipidemia 43063271 E78.5 Tinea pedis 2954389 B35. 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 Followed by Dr. Roberts for pulmonary [id number] Sirisha campbell Main Office [address] [address] [place] [address] 04/14/2021 10:34:49 04/14/2021 11:45:55 Essential hypertension 57689000 I10 pulse running low, pt with orthostati c symptoms and orthostati c BP drop in ER, lower atenolol from 100mg to 75mg, in a few days restart norvasc 5mg check labs in 4 weeks Orthostati c hypotension 17009677 I95.1 see above and hydrate Anemia due to unknown mechanism 02612506 D64.9 hgb very minimally decreased in ER with nl Ht, recheck in 4 weeks. Vertigo 626777049 R42 resolved [id number] Katie Garcia PA-C Main Office [address] [address] [place] [address] 05/13/2021 15:29:28 05/13/2021 16:28:12 Essential hypertension 45653082 I10 stable bp, cont med as dir -- x HR still a little low - so decrease BB from 75mg to 50mg Needs infl uenza immunization 595579479 Z23 Serum ferr itin above reference range 922239870 R77.8 pending HH panel, no FH HH Hyperlipidemia 54031951 E78.2 cont statin as dir [id number] Katie Garcia PA-C Main Office [address] [address] [place] [address] 07/09/2021 15:40:12 07/09/2021 16:59:58 Essential hypertension 38602653 I10 stable bp, cont meds as dir Hyperlipidemia 27372083 E78.2 ldl sig lower - cont statin as dir Gastroesop hageal reflux disease 864766319 K21.9 cont ppi as dir as per GI Hemochromatosis 61152779 6 E83.119 pending hem/onc eval in 2. [id number] Katie Garcia PA-C Main Office [address] [address] [place] [address] 08/31/2021 11:24:12 08/31/2021 12:26:48 Dizziness 267382430 R42 new onset yesterday - believe d/t orthostasi s, herman c hr in the 50s --- advised pt to stop BB, cont to stay hydrated, and switch bp/statin combo to pm doubt vertigo - no h/o such, and curr feels fine, able to move head fine c no dizziness f/u 1-2 wks, sooner if dizziness returns or other cardiac sxs appear Essential hypertension 23137403 I10 stable bp, change meds as dir above/belo w Hyperlipidemia 29630496 E78.2 ldl sig lower - cont statin as dir Hemochromatosis 59377594 6 E83.119 stable, cont f/u c hem/onc [id number] Katie Garcia PA-C Main Office [address] [facility] [address] [place] [address] 10/07/2021 15:36:46 10/07/2021 16:05:27 Essential hypertension 09974880 I10 stable bp - cont med as dir Dizziness 010383166 R42 resolved [id number] Katie Garcia PA-C Main Office [address] [address] [place] [address] 02/15/2022 10:17:07 02/15/2022 11:34:54 Adult health examination 008877206 Z00.00 Essential hypertension 61784971 I10 stable bp - cont med as dir Impaired f asting glycemia 075531211 R73.01 A1c 5.1 - offered reassuranc e - no evidence of predm, but still encouraged wt loss d/t obesity and ankit Obstructiv e sleep apnea syndrome 76712046 G47.33 cont cpap, f/u c sleep med as dir Hyperlipidemia 85039297 E78.2 ldl sig lower - cont statin as dir Hemochromatosis 39193997 6 E83.119 stable, cont f/u c hem/onc - next in 1.23 Eczema 84572529 L30.9 seen by derm - cont creams as dir Gastroesop hageal reflux disease 567980689 K21.9 cont ppi as dir as per GI - no evidence of bashir's 2.21 egd Body mass index 30+ - obesity 984476712 E66.01 Z68.38 [id number] Katie Garcia PA-C Main Office [address] [address] [place] [address] 08/19/2022 15:37:22 08/20/2022 09:56:46 Gastroesophageal reflux disease 192649673 K21.9 cont ppi as dir as per GI - no evidence of bashir's 2.21 egd Essential hypertension 96367495 I10 stable bp & cr - cont med as dir Hemochromatosis 20857931 6 E83.119 had recent liver mri & echo / pending cardiac mri, cont f/u c hem/onc check labs c cc: hem/onc Body mass index 30+ - obesity 166132667 E66.01 Z68.39 Impaired f asting glycemia 900840215 R73.01 A1c 5.1 - offered reassuranc e - no evidence of predm, but still encouraged wt loss d/t obesity and ankit Hyperlipidemia 60957076 E78.2 ldl sig lower - cont statin as dir [id number] Jonn Edmond MD Main Office [address] [facility] [address] [facility] [place] [address] 02/03/2023 10:51:54 02/03/2023 11:44:26 Low back pain 694869245 M54.50 Muscular pain. Will take ibuprofen 800 mg tid for the next couple of days and a muscle relaxant. [id number] Katie Garcia PA-C Main Office [address] [facility] [address] [facility] [place] [address] 02/23/2023 14:49:03 02/23/2023 16:15:42 Adult health examination 015036302 Z00.00 Obstructiv e sleep apnea syndrome 74905209 G47.33 cont cpap, f/u c sleep med as dir Hemochromatosis 44751169 6 E83.119 had recent liver mri & echo / pending cardiac mri, cont f/u c hem/onc 8.23 - stable, cont phlebotomy monthly, next ov c hem/onc 10.23 Hyperlipidemia 82638350 E78.2 ldl sig lower - cont statin as dir Essential hypertension 49640373 I10 bp elevated - cont med as dir, will cont to monitor at derm next week and at phlebotomy - let me know if cont to trend up, f/u 1 month for recheck - may need add'l med Gastroesop hageal reflux disease 172862573 K21.9 cont ppi as dir as per GI - no evidence of bashir's 2.21 egd Impaired f asting glycemia 344240665 R73.01 A1c 5.2 - offered reassuranc e - no evidence of predm, but still encouraged wt loss d/t obesity and ankit History of polyp of colon 450321388 Z86.010 next in 5.27 Body mass index 30+ - obesity 749492209 E66.01 Z68.39 Eczema 33318356 L30.9 seen by derm - cont creams as dir [id number] Katie Garcia PA-C Main Office [address] [facility] [address] [facility] [place] [address] 03/24/2023 15:26:07 03/24/2023 16:38:16 Essential hypertension 61607579 I10 bp elevated - cont med as [...] rev possible SEs Gastroesop hageal reflux disease 177168766 K21.9 cont ppi as dir as per GI - no evidence of bashir's 2.21 egdpt requested refill - rx printed so it could be sent to [facility] Hyperlipidemia 57113197 E78.2 ldl sig lower - cont statin as dir, pending recheck lipids [id number] Katie Garcia PA-C Main Office [address] [facility] [address] [facility] [address] 09/28/2023 15:36:46 09/28/2023 17:01:55 Essential hypertension 96379536 I10 bp elevated - cont med as [...] cr stable, cont meds as dir Hyperlipidemia 29682257 E78.2 ldl ~ stable - cont statin as dir Gastroesop hageal reflux disease 827411199 K21.9 cont ppi as dir as per GI - no evidence of bashir's 2.21 egdpt requested refill - rx printed so it could be sent to [facility] Hemochromatosis 88934953 6 E83.119 had recent liver mri & echo / pending cardiac mri, cont f/u c hem/onc 3.24 - stable, cont phlebotomy monthly, next ov c hem/onc 4.24 [id number] Katie Garcia PA-C Main Office [address] [facility] [address] [facility] [address] 03/05/2024 08:25:30 03/05/2024 09:41:27 Adult health examination 737482847 Z00.00 colon utd Hemochromatosis 49052337 6 E83.119 had recent liver mri & echo / pending cardiac mri, cont f/u c hem/onc 8.24 - stable, cont phlebotomy monthly, cont c hem/onc q 6 months Hyperlipidemia 70986010 E78.2 ldl ~ stable - cont statin as dir History of polyp of colon 876742914 Z86.010 next in 5.27 Obstructiv e sleep apnea syndrome 05246835 G47.33 cont cpap, f/u c sleep med as dir Gastroesop hageal reflux disease 486106962 K21.9 cont ppi as dir as per GI - no evidence of bashir's 2.21 egdpt requested refill - rx printed so it could be sent to [facility] 8.24 - stable Essential hypertension 00726896 I10 bp elevated - cont med as [...] meds as dir Impaired f asting glycemia 521697523 R73.01 A1c 5.3 - offered reassuranc e - no evidence of predm, but still encouraged wt loss d/t obesity and ankit Nocturia 064461817 R35.1 Body mass index 30+ - obesity 866168564 E66.01 Z68.38 [id number] Katie GONZALEZC Main Office [address] [facility] [place] [address] 07/11/2024 11:14:55 07/11/2024 12:40:39 Fever 866395237 R50.9 offered re-assuran ce both covid and flu testing normal Acute sinusitis 18628579 J01.90 rec mucinex, ns spray, warm washcloth side of neck prnrecomme nd probiotics while on abx Deviated nasal septum 12 2264632 J34.2 [id number] Katie Garcia PA-C Main Office [address] [facility] [place] [address] 09/05/2024 15:45:40 09/05/2024 16:44:38 Hyperlipidemia 85127000 E78.2 ldl ~ stable - cont statin as dir Essential hypertension 14930411 I10 bp elevated - cont med as [...] meds as dir Deviated nasal septum 12 4426988 J34.2 pending see ent 6.25cont ns spray, steam Hemochromatosis 55494590 6 E83.119 had recent liver mri & echo / pending cardiac mri, cont f/u c hem/onc 2.25 - stable, cont phlebotomy monthly, cont c hem/onc q 6 months Impaired f asting glycemia 558542068 R73.01 A1c 5.3 - offered reassuranc e - no evidence of predm, but still encouraged wt loss d/t obesity and ankit Heart murmur 41679380 R0 1.1 Health Concerns Section Related Observation LastModified by Organization Detai ls LastModified Time None Recorded Concern Status LastModified by Organization Details LastModified Time None Recorded Advance Directives Directive Y: HCP Payers Encounter Date Sequence Insurance Name Policy Number Policy Solares Covered Member ID Solares Member ID Guarantor Name 03/24/2023 1 [place] [facility] [place] [id number] Naveen J Vadnais [id number] Naveen Vadnais 09/28/2023 1 [place] [facility] [place] [id number] Naveen J Vadnais [id number] Naveen Vadnais 03/05/2024 1 [place] [facility] [place] [id number] Naveen J Vadnais [id number] Naveen Vadnais 07/11/2024 1 [facility] [facility] [place] [id number] Naveen Mayen [id number] Naveen Mayen 09/05/2024 1 [facility] [facility] [place] [id number] Naveen Mayen [id number] Naveen Mayen Notes Date Note Type Note Provider Name and Address Organization Details Recorded Time 03/24/2023 text/html Hypertension F/UReported bypatient.Associated Symptoms:no dizziness; no lightheadedness; no chest pain; no shortness of breath; no palpitations; no edema; no calf pain with exertion Lifestyle:regular exercise;high salt intake Medications:taking medications as directed; no side effects from medication Katie Garcia PA-C [address], [address], [facility] 03/24/2023 17:02:32 09/28/2023 text/html Hypertension F/UReported bypatient.Associated Symptoms:no dizziness; no lightheadedness; no chest pain; no shortness of breath; no palpitations; no edema; no calf pain with exertion Lifestyle:regular exercise; limiting/avoiding salt Medications:taking medications as directed; no side effects from medication Katie Garcia PA-C [address] [address], [place], [address], [facility] 09/28/2023 17:20:55 03/05/2024 text/html here for annual pe. Katie Garcia PA-C [address], [address], [facility] 03/05/2024 09:39:37 07/11/2024 text/html Patient reports yesterday [...] recent labs - nl Katie Garcia PA-C [address] [address], [place], [address], [facility] 07/11/2024 13:17:05 09/05/2024 text/html Hypertension F/UReported bypatient.Associated Symptoms:no dizziness; no lightheadedness; no chest pain; no shortness of breath; no palpitations; no edema; no calf pain with exertion Lifestyle:regular exercise; limiting/avoiding salt Medications:taking medications as directed; no side effects from medication Katie Garcia PA-C [address] [address], [place], [address], [facility] 09/05/2024 20:38:55
== END 2024-10-05 08:05 | disposition home or self-care (01) ==
LOC: HO.BBR 08:04
PROVIDERS: Visit Provider Hospitalist
DX: Z13.89 Encounter for screening for other disorder (principal)

== ENCOUNTER 2024-11-02 08:02 | Outpatient (REF) | payer BC, SELFPAY ==
--- OUTSIDE RECORDS SUMMARY | 2024-11-02 08:07 | XMS_ITS | Data Portability ---
Author Organization [facility], Main Office Address [address] [place] [address] [place] [id number] Care Team Providers Care Last Model Maker Name Role Phone KATIE GARCIA Primary Care Provider [phone] KATINA ROBERTS Element Setter REINALDO SOL Healthcare Management PRASANTH POND Laboratory Development Technician UNIQUE JOHNSON Densitometer Reader Assessment No assessment recorded. Plan of Treatment Reminders Order Date Submit Date Provider Last Modified By Organization Details Last Modified Time Details Appointments PE EST 2024 08:45A M Katie Garcia PAGenie Not available Not available Not available Lab HbA1c (hemog lobin A1c), blood 2024 025 MIRIAN [facility] (Centralized Electronic Ordering - All Locations), Patient Can Go To The Location Of Their Choice, [id number] 10/29/2024 13:11:42 BMP, serum or plasma 2024 025 MIRIAN [facility] (Centralized Electronic Ordering - All Locations), Patient Can Go To The Location Of Their Choice, [id number] 10/29/2024 13:11:41 rapid SARS CoV 2 Ag, QL IA, respir atory specim en 2023 024 pmadden In-Office Order, Internal Use Only DO Not Attach Compendium DO Not Attach Compendium, Do Not Delete/merge, [id number] 07/11/2024 12:04:23 rapid flu (A+B) 2023 024 MIRIAN In-Office Order, Internal Use Only DO Not Attach Compendium DO Not Attach Compendium, Do Not Delete/merge, [id number] 07/11/2024 12:13:24 HbA1c (hemog lobin A1c), blood 2023 024 MIRIAN [facility] (Centralized Electronic Ordering - All Locations), Patient Can Go To The Location Of Their Choice, [id number] 07/03/2024 14:06:52 PSA, total, serum or plasma 2023 024 MIRIAN [facility] (Centralized Electronic Ordering - All Locations), Patient Can Go To The Location Of Their Choice, [id number] 07/03/2024 14:06:53 lipid panel, serum 2023 024 MIRIAN [facility] (Centralized Electronic Ordering - All Locations), Patient Can Go To The Location Of Their Choice, 07/03/2024 14:06:51 CMP, serum or plasma 2023 024 MIRIAN [facility] (Centralized Electronic Ordering - All Locations), Patient Can Go To The Location Of Their Choice, [id number] 07/03/2024 14:06:50 CBC w/ auto diff 2023 024 MIRIAN [facility] (Centralized Electronic Ordering - All Locations), Patient Can Go To The Location Of Their Choice, [id number] 07/03/2024 14:06:49 Referral otolar yngolo wanda referr al 2023 024 [place] , [address], [facility] [address], [place], [address], 08/13/2024 08:19:13 nutrit ionist /dieti sarbjit referr al 2023 024 Not available 03/05/2024 10:02:15 Procedures None record ed. Surgeries None record ed. Imaging US, echoca rdiogr am - please compar kishore alvarez c mri 3.6.23 2024 [facility] [address] , [place], [address], 10/23/2024 14:02:46 Medication Orders amoxic illin 875 mg-pot assium clavul anate 125 mg tablet 2023 025 [facility] #[id number], [address] [place], [address], 09/05/2024 16:10:07 lansop razole 30 mg capsul e,renuka yed releas e 2023 024 selmamontone Not available 09/17/2024 13:44:13 lisino pril 5 mg tablet 2022 023 [facility] #[id number], [address] [facility] [place], [address], 03/24/2023 16:31:04 lansop razole 30 mg capsul e,renuka yed releas e 2022 023 mchasen Not available 03/25/2023 08:34:52 Patient Targets Encounter Date Encounter Id Patient Goals Patient Target Last Modified By Organization Details Last Modified Time 03/24/2023 [id number] termite control representative goal of Blood Pressure 140 / 90 Not available Not available Not available halfway goal of Exercise level Not available Not available Not available termite control representative goal of Tobacco Smoking Status Not available [...] goal. pmadden Not available 03/24/2023 17:01:58 09/28/2023 [id number] halfway goal of Blood Pressure 140 / 90 Not available Not available Not available termite control representative goal of Exercise level Not available Not available Not available termite control representative goal of Tobacco Smoking Status Not available [...] goal. pmadden Not available 09/28/2023 17:19:54 03/05/2024 [id number] termite control representative goal of Blood Pressure 140 / 90 Not available Not available Not available termite control representative goal of Exercise level Not available Not available Not available halfway goal of Tobacco Smoking Status Not available Not available Not available halfway goal of Excess Body Weight Loss % [...] goals. pmadden Not available 03/05/2024 09:28:32 09/05/2024 [id number] termite control representative goal of Blood Pressure 140 / 90 Not available Not available Not available halfway goal of Exercise level Not available Not available Not available termite control representative goal of Tobacco Smoking Status Not available [...] By Organization Details Last Modified Time 03/24/2023 [id number] high blood pressure: care instructions pmadden Not [...] medication. pmadden Not available 03/24/2023 17:01:13 09/28/2023 [id number] Medications (OTC , herbal therapies, supplements) reviewed and reconciled with patient and or caregiver, including potential side effects, drug interactions, instructions, and the consequences of not taking medication. Reviewed potential barriers to medication adherence, such as side effects from medication or cost of medication. pmadden Not available 09/28/2023 17:20:36 03/05/2024 [id number] Prostate Cancer Screening pmadden Not available 03/05/2024 [...] medication. pmadden Not available 03/05/2024 09:29:04 07/11/2024 [id number] Acute Sinusitis: Care Instructions pmadden Not available 07/11/2024 12:37:21 saline nasal washes: care instructions pmadden Not available 07/11/2024 12:37:21 eustachian tube problems: care instructions pmadden Not available 07/11/2024 12:37:21 Follow up if no improvement or if symptoms worsen. pmadden Not available 07/11/2024 13:16:38 09/05/2024 [id number] Medications (OTC , herbal therapies, supplements) reviewed and reconciled with patient and or caregiver, including potential side effects, drug interactions, instructions, and the consequences of not taking medication. Reviewed potential barriers to medication adherence, such as side effects from medication or cost of medication. 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 Refer ral for Body mass index 30+ - obesity Referring Physician: Katie Garcia, Internal Medicine, Encounter Date: 03/05/2024 Decoration Checker Referral fo r Deviated nasal septum Referring Physician: Katie Garcia, Internal Medicine, Encounter Date: 07/11/2024 Results Created Date Observation Date Name Description Value Unit Range Abnormal Flag Note LastModifiedBy Organization Detail LastModifiedTime 09/24/1909/24/2023 LIPID PANEL results Mitcheltish mihir Order Not Available [facility] (Centralized Electronic [...] 09/24/1909/24/2023 COMPR EHENS CINDY METAB OLIC PANL bicarbonate [...] 09/24/1909/24/2023 COMPR EHENS CINDY METAB OLIC PANL AST 18 U/L (0-40) Not Available [facility] (Centralized Electronic Ordering - All Locations) Patient Can Go To The Location Of Their Choice, 09/24/2023 09:22:44 09/24/1909/24/2023 COMPR EHENS CINDY METAB OLIC PANL alk [...] of Clini tyler and Appli ed Resea [facility] and Educa tion Volum e 43, Suppl ement 1 Not Available [facility] (Centralized Electronic Ordering - All Locations) Patient Can Go To The Location Of Their Choice, [id number] 09/24/2023 10:29:34 07/01/20 24 07/02/2024 CBC WITH DIFFE RENTI AL/PL ATELE T WBC 5.9 x10e3 /uL 3.4-10 .8 normal Not Available [facility] ([facility]) [address] [place], [address], 07/03/2024 14:06:49 07/01/20 24 07/02/2024 CBC WITH DIFFE RENTI AL/PL ATELE T RBC 4.40 x10e6 /uL 4.14-5 .80 normal Not Available [facility] ([facility]) [address] [place], [address], 07/03/2024 14:06:49 07/01/20 24 07/02/2024 CBC WITH DIFFE RENTI AL/PL ATELE T hemoglobin 12.3 g/dL 13.0-1 7.7 below low normal Not Available [facility] ([facility]) [address] [place], [address], 07/03/2024 14:06:49 07/01/20 24 07/02/2024 CBC WITH DIFFE RENTI AL/PL ATELE T hematocrit 38.3 % 37.5-5 1.0 normal Not Available [facility] ([facility]) [address] [place], [address], 07/03/2024 14:06:49 07/01/20 24 07/02/2024 CBC WITH DIFFE RENTI AL/PL ATELE T MCV 87 fL 79-97 normal Not Available [facility] ([facility]) [address] [place], [address], 07/03/2024 14:06:49 07/01/20 24 07/02/2024 CBC WITH DIFFE RENTI AL/PL ATELE T MCH 28.0 pg 26.6-3 3.0 normal Not Available [facility] ([facility]) [address] [facility], [place], [address], 07/03/2024 14:06:49 07/01/20 24 07/02/2024 CBC WITH DIFFE RENTI AL/PL ATELE T MCHC 32.1 g/dL 31.5-3 5.7 normal Not Available [facility] ([facility]) [address] [facility], [place], [address], 07/03/2024 14:06:49 07/01/20 24 07/02/2024 CBC WITH DIFFE RENTI AL/PL ATELE T RDW 13.1 % 11.6-1 5.4 Not Available [facility] ([facility]) [address] [facility], [place], [address], 07/03/2024 14:06:49 07/01/20 24 07/02/2024 CBC WITH DIFFE RENTI AL/PL ATELE T platelets 323 x10e3 /uL 150-45 0 normal Not Available [facility] ([facility]) [address] [facility], [place], [address], 07/03/2024 14:06:49 07/01/20 24 07/02/2024 CBC WITH DIFFE RENTI AL/PL ATELE T neutrophils 60 % not estab. normal Not Available [facility] ([facility]) [address] [place], [address], 07/03/2024 14:06:49 07/01/20 24 07/02/2024 CBC WITH DIFFE RENTI AL/PL ATELE T lymphs 29 % not estab. normal Not Available [facility] ([facility]) [address] [place], [address], 07/03/2024 14:06:49 07/01/20 24 07/02/2024 CBC WITH DIFFE RENTI AL/PL ATELE T monocytes 5 % not estab. normal Not Available [facility] ([facility]) [address] [facility], [place], [address], 07/03/2024 14:06:49 07/01/20 24 07/02/2024 CBC WITH DIFFE RENTI AL/PL ATELE T eos 4 % not estab. normal Not Available [facility] ([facility]) [address] [facility], [place], [address], 07/03/2024 14:06:49 07/01/20 24 07/02/2024 CBC WITH DIFFE RENTI AL/PL ATELE T basos 1 % not estab. normal Not Available [facility] ([facility]) [address] [facility], [place], [address], 07/03/2024 14:06:49 07/01/20 24 07/02/2024 CBC WITH DIFFE RENTI AL/PL ATELE T immature cells EMPLOYEE COUNSELOR Not Available [facility] ([facility]) [address] [place], [address], 07/03/2024 14:06:49 07/01/20 24 07/02/2024 CBC WITH DIFFE RENTI AL/PL ATELE T neutrophils (absolute) 3.6 x10e3 /uL 1.4-7. 0 normal Not Available [facility] ([facility]) [address] [place], [address], 07/03/2024 14:06:49 07/01/20 24 07/02/2024 CBC WITH DIFFE RENTI AL/PL ATELE T lymphs (absolute) 1.7 x10e3 /uL 0.7-3. 1 normal Not Available [facility] ([facility]) [address] [place], [address], 07/03/2024 14:06:49 07/01/20 24 07/02/2024 CBC WITH DIFFE RENTI AL/PL ATELE T monocytes(ab solute) 0.3 x10e3 /uL 0.1-0. 9 normal Not Available [facility] ([facility]) [address] [facility], [place], [address], 07/03/2024 14:06:49 07/01/20 24 07/02/2024 CBC WITH DIFFE RENTI AL/PL ATELE T eos (absolute) 0.2 x10e3 /uL 0.0-0. 4 normal Not Available [facility] ([facility]) [address] [facility], [place], [address], 07/03/2024 14:06:49 07/01/20 24 07/02/2024 CBC WITH DIFFE RENTI AL/PL ATELE T baso (absolute) 0.0 x10e3 /uL 0.0-0. 2 normal Not Available [facility] ([facility]) [address] [facility], [place], [address], 07/03/2024 14:06:49 07/01/20 24 07/02/2024 CBC WITH DIFFE RENTI AL/PL ATELE T immature granulocytes 1 % not estab. Not Available [facility] ([facility]) [address] [facility], [place], [address], 07/03/2024 14:06:49 07/01/20 24 07/02/2024 CBC WITH DIFFE RENTI AL/PL ATELE T immature grans (abs) 0.1 x10e3 /uL 0.0-0. 1 Not Available [facility] ([facility]) [address] [place], [address], 07/03/2024 14:06:49 07/01/20 24 07/02/2024 CBC WITH DIFFE RENTI AL/PL ATELE T NRBC EMPLOYEE COUNSELOR Not Available [facility] ([facility]) [address] [place], [address], 07/03/2024 14:06:49 07/01/20 24 07/02/2024 CBC WITH DIFFE LAURA AL/PL LETICIA T hematology comments: EMPLOYEE COUNSELOR Not Available [facility] ([facility]) [address] [facility], [place], [address], 07/03/2024 14:06:49 07/01/20 24 07/03/2024 COMP. METAB OLIC PANEL (14) glucose 108 mg/dL 70-99 above high normal Not Available [facility] ([facility]) [address] [facility], [place], [address], 07/03/2024 14:06:50 07/01/20 24 07/03/2024 COMP. METAB OLIC PANEL (14) BUN 20 mg/dL 6-24 normal Not Available [facility] ([facility]) [address] [facility], [place], [address], 07/03/2024 14:06:50 07/01/20 24 07/03/2024 COMP. METAB OLIC PANEL (14) creatinine 1.17 mg/dL 0.76-1 .27 normal Not Available [facility] ([facility]) [address] [facility], [place], [address], 07/03/2024 14:06:50 07/01/20 24 07/03/2024 COMP. METAB OLIC PANEL (14) eGFR 72 mL/mi n/1.7 3 >59 normal Not Available [facility] ([facility]) [address] [facility], [place], [address], 07/03/2024 14:06:50 07/01/20 24 07/03/2024 COMP. METAB OLIC PANEL (14) BUN/creatini ne ratio 17 9-20 normal Not Available [facility] ([facility]) [address] [facility], [place], [address], 07/03/2024 14:06:50 07/01/20 24 07/03/2024 COMP. METAB OLIC PANEL (14) sodium 140 mmol/ L 134-14 4 normal Not Available [facility] ([facility]) [address] [place], [address], 07/03/2024 14:06:50 07/01/20 24 07/03/2024 COMP. METAB OLIC PANEL (14) potassium 4.6 mmol/ L 3.5-5. 2 normal Not Available [facility] ([facility]) [address] [place], [address], 07/03/2024 14:06:50 07/01/20 24 07/03/2024 COMP. METAB OLIC PANEL (14) chloride 105 mmol/ L 96-106 normal Not Available [facility] ([facility]) [address] [place], [id number], 07/03/2024 14:06:50 07/01/20 24 07/03/2024 COMP. METAB OLIC PANEL (14) carbon dioxide, total 23 mmol/ L 20-29 normal Not Available [facility] ([facility]) [address] [place], [id number], 07/03/2024 14:06:50 07/01/20 24 07/03/2024 COMP. METAB OLIC PANEL (14) calcium 9.2 mg/dL 8.7-10 .2 normal Not Available [facility] ([facility]) [address] [place], [id number], 07/03/2024 14:06:50 07/01/20 24 07/03/2024 COMP. METAB OLIC PANEL (14) protein, total 6.8 g/dL 6.0-8. 5 normal Not Available [facility] ([facility]) [address] [place], [id number], 07/03/2024 14:06:50 07/01/20 24 07/03/2024 COMP. METAB OLIC PANEL (14) albumin 4.0 g/dL 3.8-4. 9 normal Not Available [facility] ([facility]) [address] [place], [address], 07/03/2024 14:06:50 07/01/20 24 07/03/2024 COMP. METAB OLIC PANEL (14) globulin, total 2.8 g/dL 1.5-4. 5 Not Available [facility] ([facility]) [address] [place], [id number], 07/03/2024 14:06:50 07/01/20 24 07/03/2024 COMP. METAB OLIC PANEL (14) bilirubin, total 0.3 mg/dL 0.0-1. 2 normal Not Available [facility] ([facility]) [address] [place], [address], 07/03/2024 14:06:50 07/01/20 24 07/03/2024 COMP. METAB OLIC PANEL (14) alkaline phosphatase 103 IU/L 44-121 normal Not Available [facility] ([facility]) [address] [facility], [address], 07/03/2024 14:06:50 07/01/20 24 07/03/2024 COMP. METAB OLIC PANEL (14) AST (SGOT) 17 IU/L 0-40 normal Not Available [facility] ([facility]) [address] [facility], [id number], 07/03/2024 14:06:50 07/01/20 24 07/03/2024 COMP. METAB OLIC PANEL (14) ALT (SGPT) 15 IU/L 0-44 normal Not Available [facility] ([facility]) [address] [facility], [address], 07/03/2024 14:06:50 07/01/20 24 07/03/2024 LIPID PANEL cholesterol, total 142 mg/dL 100-19 9 normal Not Available [facility] ([facility]) [address] [facility], [address], 07/03/2024 14:06:51 07/01/20 24 07/03/2024 LIPID PANEL triglyceride s 55 mg/dL 0-149 normal Not Available [facility] ([facility]) [address] [place], [address], 07/03/2024 14:06:51 07/01/20 24 07/03/2024 LIPID PANEL HDL cholesterol 36 mg/dL >39 below low normal Not Available [facility] ([facility]) [address] [place], [address], 07/03/2024 14:06:51 07/01/20 24 07/03/2024 LIPID PANEL VLDL cholesterol tyler 12 mg/dL 5-40 Not Available [facility] ([facility]) [address] [place], [address], 07/03/2024 14:06:51 07/01/20 24 07/03/2024 LIPID PANEL LDL chol calc ([facility]) 94 mg/dL 0-99 Not Available [facility] ([facility]) [address] [place], [address], 07/03/2024 14:06:51 07/01/20 24 07/03/2024 LIPID PANEL LDL calc comment: EMPLOYEE COUNSELOR Not Available [facility] ([facility]) [address] [place], [address], 07/03/2024 14:06:51 07/01/20 24 07/03/2024 HEMOG LOBIN A1C hemoglobin A1C 5.3 % 4.8-5. 6 normal Predi abete s: 5.7 - 6.4 Diabe cat: >6.4 Glyce ivet contr ol for adult s with diabe cat: <7.0 Not Available [facility] ([facility]) [address] [place], [address], 07/03/2024 14:06:52 07/01/20 24 07/03/2024 PROST ATE-S [...] of sunshine galo se. Not Available [facility] ([facility]) [address] [facility], [place], [address], 07/03/2024 14:06:53 07/11/20 24 07/11/2024 rapid flu (A+B) Flu A negati ve Not Available In-Office Order Internal Use Only DO Not Attach Compendium DO Not Attach Compendium, Do Not Delete/merge, [id number] 07/11/2024 11:40:25 07/11/20 24 07/11/2024 rapid flu (A+B) Flu B negati ve Not Available In-Office Order Internal Use Only DO Not Attach Compendium DO Not Attach Compendium, Do Not Delete/merge, [id number] 07/11/2024 11:40:25 07/11/20 24 07/11/2024 rapid SARS CoV 2 Ag, QL IA, respi rator y speci men RAPID SARS COV 2 negati ve Not Available In-Office Order Internal Use Only DO Not Attach Compendium DO Not Attach Compendium, Do Not Delete/merge, [id number] 07/11/2024 11:40:03 09/07/1909/27/2022 MRI, heart funct ion and morph ology [...] MA, FRANCISCO J ON/ADDEN DUM Pamela orantes [facility] 6 14:59:31 Dependen ce on enabling machine or device [id number] Completed 201304/11/2017 BiPAP machine at bedtime FARAZ Solorzano [facility] 7 09:36:26 Conjunct ivitis 0819603 Completed 201102/12/2014 RECORDED 02/29/20 12 4:20PM BY EDUIN LOVE MA, ANNOTATI ON/ADDEN DUM Pamela orantes [facility] 6 14:59:31 Gastroes ophageal reflux disease 369188378 Active 2012 STORY: TREATMEN T FAILURE WITH OMEPRAZO LE. STABLE ON PREVACID FARAZ Solorzano [facility] 6 09:20:40 [facility]ia l hyperten ralin 17384384 Active 2012 Pamela orantes [facility] 6 14:59:31 Malaise and fatigue 362374021 Completed 201102/12/2014 RECORDED 02/29/20 12 4:20PM BY EDUIN LOVE MA, FRANCISCO J ON/ADDEN DUM Pamela orantes [facility] 6 14:59:31 Hyperlip idemia 88598361 Active 2012 5.19 - ascvd risk of 6.2% // 11.20 - 9.6% Katie Garcia PA-C [address] [address], [place], [address] , [facility] 0 17:04:54 Influenz a vaccine needed 61036952163 06 Completed 201002/12/2014 DATE: 08/18/19 11; RECORDED 02/29/20 12 4:20PM BY EDUIN LOVE MA, ANNOTATI ON/ADDEN DUM Pamela orantes [facility] 6 14:59:31 Administ ration of bacteria l and viral vaccine Completed 200802/12/2014 RECORDED 04/14/20 09 9:17AM BY EDUIN LOVE MA, OFFICE VISIT Pamela orantes [facility] 6 14:59:31 Obesity 895065174 Active 2012 Pamela orantes [facility] 6 14:59:31 Obstruct cindy sleep apnea syndrome 84629574 Active 2012 Pamela orantes [facility] 6 14:59:31 Osteoart hritis 780255881 Active 2012 Pamela orantes [facility] 6 14:59:31 Referred otalgia 28253383 Completed 201102/12/2014 RECORDED 02/29/20 12 4:20PM BY EDUIN LOVE MA, ANNOTATI ON/ADDEN DUM Pamela orantes, [facility] 6 14:59:31 Screenin g for malignan t neoplasm of colon Completed 201102/12/2014 RECORDED 02/29/20 12 4:20PM BY EDUIN LOVE MA, ANNOTATI ON/ADDEN DUM Pamela orantes, [facility] 6 14:59:31 Adult health examinat ion Completed 201203/04/2014 RECORDED 05/22/20 13 4:02PM BY NATASHA OHARA MA, ANNOTATI ON/ADDEN DUM Pamela orantes [facility] 6 14:59:31 Conjunct ivitis 4907541 Completed 201103/04/2014 RECORDED 02/29/20 12 4:20PM BY EDUIN LOVE MA, ANNOTATI ON/ADDEN DUM Pamela orantes, [facility] 6 14:59:31 Malaise and fatigue 666067762 Completed 201103/04/2014 RECORDED 02/29/20 12 4:20PM BY EDUIN LOVE MA, ANNOTATI ON/ADDEN DUM Pamela orantes, [facility] 6 14:59:31 Influenz a vaccine needed 58344662820 06 Completed 201003/04/2014 DATE: 08/18/19 11; RECORDED 02/29/20 12 4:20PM BY EDUIN LOVE MA, ANNOTJING ON/ADDEN DUM Pamela orantes [facility] 6 14:59:31 Administ ration of bacteria l and viral vaccine Completed 200803/04/2014 RECORDED 04/14/20 09 9:17AM BY EDUIN LOVE MA, OFFICE VISIT Pamela orantes [facility] 6 14:59:31 Referred otalgia 22718769 Completed 201103/04/2014 RECORDED 02/29/20 12 4:20PM BY EDUIN LOVE MA, FRANCISCO J ON/ADDEN DUM Pamela orantes [facility] 6 14:59:31 Screenin g for malignan t neoplasm of colon Completed 201103/04/2014 RECORDED 02/29/20 12 4:20PM BY EDUIN LOVE MA, FRANCISCO J ON/ADDEN DUM Pamela orantes [facility] 6 14:59:31 Body mass index 30+ - obesity 467591895 Completed 06/13/2019 Removal Reason: dx changed Adela orantes [facility] 9 15:51:20 Tinea pedis 2026971 Active Pamela orantes, [facility] 6 14:59:31 Allergic rhinitis 00666057 Active Pamela orantes, [facility] 6 14:59:31 Dependen ce on biphasic positive airway pressure ventilat ion 873210802 Active 2013 bi-PAP machine Eduin Vahe guadarrama MA null, [facility] 7 09:36:48 Serum ferritin above referenc e range 629810943 Completed 202003/05/2024 Katie Garcia PA-C [address] [facility] [address], [place], [address] , [facility] 4 09:24:56 Hemochro matosis 140142384 Active 2020 Katie Garica PA-C [address], [place], [address] , [facility] 1 13:13:24 Eczema 76591335 Active 2021 Katie Garcia PA-C [address] [facility] [address], [place], [address] , [facility] 2 11:12:49 History of polyp of colon 097144197 Active 2022 Katie Garcia PA-C [address] [facility] [address], [place], [address] , [facility] 3 15:57:39 Deviated nasal septum 815354929 Active 2024 Katie Garcia PA-C [address] [facility] [address], [place], [address] , [facility] 5 16:19:23 Impaired fasting glycemia 428231924 Active 2024 Katie Garcia PA-C [address], [place], [address] , [facility] 5 16:24:29 Heart murmur 87281963 Active 2024 Katie Garcia PA-C [address] [facility] [address], [place], [address] , [facility] 5 16:33:00 Problem Notes None recorded. Procedures Surgical History Date Name Laterality Status Provider Name and Address Organization Details Recorded Time 2 Colonoscopy completed Pamela [facility] 01/05/2022 15:11:44 1 EGD completed [facility] 09/17/2020 09:36:11 Imaging Results Imaging Date [...] BY MOUTH ONCE DAILY BEFORE A MEAL 02/24/ 2025 active Not Available Not Available Not Avai [...] 193.04 cm 98.6 [degF] Eduin hooker MA [facility] 03/24/2023 16:05:13 Date Recorded Body mass index (BMI) Body weight Heart rate Oxygen saturation Oxygen saturation in Arterial blood by Pulse oximetry Systolic blood pressure Diastolic blood pressure Provider Name and Address Organization Details Last Updated DateTime 3 39.8 kg/m2 640520. 7 g 64 /min 97 % 97 % 151 mm[Hg] 75 mm[Hg] Geraldo Sheridan MA [facility] 3 16:00:31 Date Recorded Systolic blood pressure Diastolic blood pressure Provider Name and Address Organization Details Last Updated DateTime 03/24/2023 144 mm[Hg] 74 mm[Hg] Katie Garcia PA-C [address], [address], [facility] 03/24/2023 16:26:18 Date Recorded Body height Body mass index (BMI) Body weight Oxygen saturation Oxygen saturation in Arterial blood by Pulse oximetry Heart rate Body temperature Systolic blood pressure Diastolic blood pressure Provider Name and Address Organization Details Last Updated DateTime 4 193.04 cm 39.1 kg/m2 711630. 95 g 97 % 97 % 73 /min 98.7 [degF] 126 mm[Hg] 76 mm[Hg] Maryse Garcia MA [facility] 4 15:51:17 Date Recorded Body height Body mass index (BMI) Body weight Heart rate Oxygen saturation Oxygen saturation in Arterial blood by Pulse oximetry Body temperature Systolic blood pressure Diastolic blood pressure Provider Name and Address Organization Details Last Updated DateTime 4 193.04 cm 38.2 kg/m2 852247 g 73 /min 98 % 98 % 98.1 [degF] 161 mm[Hg] 85 mm[Hg] Kari Alfredo MA [facility] 4 08:36:42 Date Recorded Systolic blood pressure Diastolic blood pressure Provider Name and Address Organization Details Last Updated DateTime 03/05/2024 128 mm[Hg] 78 mm[Hg] Katie Garcia PA-C [address] [place] [address], [address], [facility] 03/05/2024 09:35:52 Date Recorded Body height Body mass index (BMI) Body weight Heart rate Oxygen saturation Oxygen saturation in Arterial blood by Pulse oximetry Body temperature Systolic blood pressure Diastolic blood pressure Provider Name and Address Organization Details Last Updated DateTime 4 193.04 cm 37.4 kg/m2 052919. 86 g 73 /min 96 % 96 % 99.4 [degF] 167 mm[Hg] 93 mm[Hg] Shyanne Green MA [facility] 4 11:36:38 Date Recorded Systolic blood pressure Diastolic blood pressure Provider Name and Address Organization Details Last Updated DateTime 07/11/2024 124 mm[Hg] 82 mm[Hg] Katie Garcia PA-C [address] [place] [address], [address], [facility] 07/11/2024 12:36:14 Date Recorded Body height Body mass index (BMI) Body weight Heart rate Oxygen saturation Oxygen saturation in Arterial blood by Pulse oximetry Body temperature Systolic blood pressure Diastolic blood pressure Provider Name and Address Organization Details Last Updated DateTime 5 193.04 cm 38.1 kg/m2 060282. 41 g 62 /min 98 % 98 % 98 [degF] 155 mm[Hg] 83 mm[Hg] Shyanne Green [facility] 5 16:10:56 Date Recorded Systolic blood pressure Diastolic blood pressure Provider Name and Address Organization Details Last Updated DateTime 09/05/2024 136 mm[Hg] 78 mm[Hg] Katie Garcia PA-C [address] [facility] [address], [place], [address], [facility] 09/05/2024 16:36:36 Date Recorded Systolic blood pressure Diastolic blood pressure Provider Name and Address Organization Details Last Updated DateTime 05/13/2023 130 mm[Hg] 77 mm[Hg] Betsy Dickedin [facility] 07/12/2023 09:04:38 Social History Question Answer Notes LastModified by Organizat ion Details LastModified Time Tobacco Smoking Status Never Smoker FARAZ Gottlieb, [facility] 04/09/2014 13:57:49 Do You Have An Advance Directive? 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 No Pt Tested At [facility] 04/13/2021=ne gative Information not available 06/30/2020 Have You Recently Traveled To A COVID-19 High Risk Area Or Gathering In The Last 10 Days? No [email or web address] Information not available 10/06/2020 What Was The [...] Time Are you able to walk? [facility] Information not available 02/15/2022 Are you able [...] Tdap 12/24/19 15 completed Nolan Bee MD [address] [address], [place], [address], [facility] [place] 04/10/2015 09:16:26 COVID-19 vaccine, vector-nr, rS-Ad26, PF, 0.5 mL 10/27/19 21 completed FARAZ Schmidt, [facility] [place] 07/09/2021 15:56:36 COVID-19, mRNA, LNP-S, PF, 30 mcg/0.3 mL dose 07/21/20 21 completed FARAZ Pineda, [facility] 08/31/2021 11:33:32 Influenza, split virus, quadrivalent, PF 04/11/20 17 cancelled patient objection Not Available [facility] 08/11/2019 02:22:07 zoster recombinant 12/24/19 20 cancelled patient objection Katievanessa Garcia PA-C [address], [place], [address], [facility] 12/24/2019 17:04:31 Influenza, split virus, quadrivalent, PF 05/13/20 21 cancelled patient objection Katie Navid RODRIGUEZ [address], [place], [address], [facility] 05/13/2021 17:32:30 Tdap 04/14/20 09 completed Not Available [facility] 02/05/2014 14:04:51 Past Encounters Encounter ID Performer Location Encounter Start Date Encounter Closed Date Diagnosis/Indication Diagnosis SNOMED-CT Code Diagnosis ICD10 Code Diagnosis Note [id number] auto[facility]ce [address] [facility] [facility] [place] [address] 04/26/2006 00:00:00 [id number] auto[facility] erce [address] [facility] [facility] [place] [address] 02/16/2006 00:00:00 [id number] auto[employer] erce [address] [facility] [facility] [place] [address] 04/19/2005 00:00:00 [id number] auto[facility]Comm erce [address] [facility] [facility] [place] [address] 10/18/2006 00:00:00 [id number] autoEComm erce [address] [facility] [facility] [place] [address] 04/12/2007 00:00:00 [id number] auto[employer]Comm erce [address] [facility] [facility] [place] [address] 10/09/2007 00:00:00 [id number] autoEComm erce [address] [facility] [facility] [place] [address] 01/08/2008 00:00:00 [id number] auto[employer]Comm erce [address] [facility] [place] [address] 09/03/2008 00:00:00 [id number] autoEComm erce [address] [facility] [place] [address] 10/30/2008 00:00:00 [id number] autoEComm erce [address] [facility] [place] [address] 04/14/2009 00:00:00 [id number] autoEComm erce [address] [facility] [place] [address] 11/11/2009 00:00:00 [id number] autoEComm erce [address] [facility] [place] [address] 11/24/2009 00:00:00 [id number] autoEComm erce [address] [facility] [place] [address] 08/18/2010 00:00:00 [id number] autoEComm erce [address] [facility] [place] [address] 02/17/2011 00:00:00 [id number] autoEComm erce [address] [facility] [place] [address] 08/31/2011 00:00:00 [id number] autoEComm erce [address] [facility] [place] [address] 02/29/2012 00:00:00 [id number] autoEComm erce [address] [facility] [place] [address] 11/21/2012 00:00:00 [id number] autoEComm erce [address] [facility] [place] [address] 05/22/2013 00:00:00 [id number] Kassidy Diaz Main Office [address] [facility] [address] [place] [address] 04/09/2014 13:43:19 04/09/2014 14:37:31 Essential hypertension 98543850 Hyperlipidemia 60623788 Gastroesop hageal reflux disease 927569528 Adult heal th examination 075768742 Body mass index 30+ - obesity 583933439 Tinea pedis 0077002 [id number] Nolan Bee MD Main Office [address] [address] [place] [address] 10/14/2014 15:31:51 10/14/2014 16:48:28 Essential hypertension 18509078 Gastroesop hageal reflux disease 908529638 Body mass index 30+ - obesity 784081881 [id number] Main Office [address] [address] [place] [address] 04/10/2015 08:53:53 04/10/2015 09:47:10 Adult health examination 332150126 Essential hypertension 08051630 Hyperlipidemia 25276390 Obstructiv e sleep apnea syndrome 99514745 Body mass index 30+ - obesity 957478090 [id number] Nolan Bee MD Main Office [address] [address] [place] [address] 10/16/2015 15:50:17 10/16/2015 16:32:56 Essential hypertension 97828257 I10 Gastroesop hageal reflux disease 629022231 K21.9 Obstructiv e sleep apnea syndrome 25172397 G47.33 Allergic rhinitis 637094 04 J30.9 Body mass index 30+ - obesity 504291635 Z68.37 [id number] Nolan Bee MD Main Office [address] [address] [place] [address] 04/13/2016 09:02:56 04/13/2016 10:00:34 Adult health examination 440093848 Z00.00 Essential hypertension 25913297 I10 Obstructiv e sleep apnea syndrome 96151046 G47.33 Body mass index 30+ - obesity 548620519 Z68.37 Fatigue 16244426 R53.83 [id number] Nolan Bee MD Main Office [address] [address] [place] [address] 10/12/2016 16:11:42 10/12/2016 17:13:55 Essential hypertension 55756724 I10 Hyperlipidemia 31808835 E78.5 Fatigue 59299599 R53.83 Obstructiv e sleep apnea syndrome 03992006 G47.33 Continues to benefit from treatment. Followed by Dr. Roberts for pulmonary [id number] Nolan Bee MD Main Office [address] [facility] [address] [place] [address] 04/11/2017 09:31:51 04/11/2017 10:22:26 Essential hypertension 63648788 I10 Hyperlipidemia 07633301 E78.5 Immunization refused 275 320152 Z28.21 Obstructiv e sleep apnea syndrome 39776097 G47.33 Continues to benefit from treatment. Followed by Dr. Roberts for pulmonary [id number] Jonn Edmond MD Main Office [address] [facility] [address] [place] [address] 11/02/2017 15:41:28 11/02/2017 16:36:02 Adult health examination 090206300 Z00.00 Essential hypertension 75651652 I10 stable, cont med as dir Hyperlipidemia 53773002 E78.2 no meds, will cont to monitor - rec increase aerobic activity and decrease red meat intake Obstructiv e sleep apnea syndrome 23268986 G47.33 cont cpap, f/u c sleep med as dir Gastroesop hageal reflux disease 901193491 K21.9 cont ppi as dir Impacted c erumen in right ear 0333570523 526096 H61.21 mild Body mass index 30+ - obesity 339772541 Z68.38 [id number] Nolan Bee MD Main Office [address] [address] [place] [address] 06/05/2018 14:46:10 06/05/2018 16:12:57 Essential hypertension 07868622 I10 stable, cont med as dir Obesity 111417855 E66.9 Impaired f asting glycemia 910212071 R73.01 A1c 5.2 - offered reassuranc e - no evidence of predm, but still encouraged wt loss d/t obesity and ankit Gastroesop hageal reflux disease 557084051 K21.9 cont ppi as dir Body mass index 30+ - obesity 243924086 Z68.38 Obstructiv e sleep apnea syndrome 11255213 G47.33 cont cpap, f/u c sleep med as dir [id number] Adela Zapien Main Office [address] [address] [place] [address] 11/06/2018 08:34:44 11/06/2018 09:37:36 Adult health examination 016637015 Z00.00 Essential hypertension 47535952 I10 stable, cont med as dir, check bmp Hyperlipidemia 80056218 E78.2 no meds, will cont to monitor - rec increase aerobic activity and decrease red meat intake Obstructiv e sleep apnea syndrome 13366188 G47.33 cont cpap, f/u c sleep med as dir Gastroesop hageal reflux disease 764223397 K21.9 cont ppi as dir, cont med as per GI - needs surveillan ce egd & colon Body mass index 30+ - obesity 871838332 Z68.38 has lost 15 lbs - encouraged pt to continue Impaired f asting glycemia 965083515 R73.01 A1c 5.2 - offered reassuranc e - no evidence of predm, but still encouraged wt loss d/t obesity and ankit Obesity 894035490 E66.9 [id number] Adela Zapien Main Office [address] [facility] [address] [place] [address] 06/12/2019 15:31:18 06/12/2019 17:20:06 Essential hypertension 34393257 I10 ekg reviewed c AJC - see PE stable bp, cont med as dir - on BB Gastroesop hageal reflux disease 020639676 K21.9 cont ppi as dir as per GI - needs surveillan ce egd & colon in 2019 Impaired f asting glycemia 709813863 R73.01 A1c 5.0 - offered reassuranc e - no evidence of predm, but still encouraged wt loss d/t obesity and ankit Obstructiv e sleep apnea syndrome 14281679 G47.33 cont cpap, f/u c sleep med as dir Body mass index 30+ - obesity 428003228 Z68.38 Hyperlipidemia 96058594 E78.2 no meds -- 5.19 ascvd risk 6.2% - will cont to monitor - rec increase aerobic activity and decrease red meat intake Obesity 017999555 E66.9 [id number] Katie Garcia PA-C Main Office [address] [place] [address] 12/24/2019 15:50:25 12/24/2019 17:09:52 Adult health examination 540209402 Z00.00 Essential hypertension 66525203 I10 stable bp, cont med as dir - on BB Hyperlipidemia 56657433 E78.2 no meds -- 5.19 ascvd risk 6.2% - will cont to monitor - rec increase aerobic activity and decrease red meat intake Gastroesop hageal reflux disease 894120356 K21.9 cont ppi as dir as per GI - needs surveillan ce egd & colon in 2019- pending in a few months Impaired f asting glycemia 217672313 R73.01 A1c 5.0 - offered reassuranc e - no evidence of predm, but still encouraged wt loss d/t obesity and ankit Obstructiv e sleep apnea syndrome 85323626 G47.33 cont cpap, f/u c sleep med as dir Obesity 678990786 E66.9 Body mass index 30+ - obesity 613620828 Z68.38 Varicella vaccination 68 751096 Z23 [id number] Marcie Lowe Main Office [address] [place] [address] 02/11/2020 13:02:26 02/11/2020 14:02:00 Contact dermatitis 96809744 L25.9 LIkely contact dermatitis , due to large area would do prednisone taper as it is very itchy. Call if not improving within a few days to a week, sooner if worsening. Infestatio n by Sarcoptes scabiei jocelyn hominis 406004529 B86 Rash bears a close enough resemblanc e to scabies that I want to treat for this x1, pt agreeable. Wash all bedding and clothing in hot soapy water. [id number] Katie Garcia PA-C Main Office [address] [place] [address] 06/30/2020 15:45:48 07/01/2020 15:13:49 Essential hypertension 26830310 I10 stable bp, cont med as dir - on BB Hyperlipidemia 41351127 E78.2 no meds -- 5.19 - ascvd risk of 6.2% // 11.20 - 9.6% - pt declines statin at this time - will cont to monitor - rec increase aerobic activity and decrease red meat intake Impaired f asting glycemia 818467136 R73.01 A1c 5.0 - offered reassuranc e - no evidence of predm, but still encouraged wt loss d/t obesity and ankit Body mass index 30+ - obesity 926773992 E66.01 Z68.39 [id number] Katie Garcia PA-C Main Office [address] [address] [place] [address] 10/06/2020 15:31:06 10/07/2020 16:28:11 Essential hypertension 27610670 I10 stable bp, cont med as dir - on BB Hyperlipidemia 13486118 E78.2 no meds -- 5.19 - ascvd risk of 6.2% // 11.20 - 9.6% / 3.21 - 9.0% - pt declines statin at this time - - rec increase aerobic activity and decrease red meat intake, could consider red yeast rice Impaired f asting glycemia 281302873 R73.01 A1c 5.1 - offered reassuranc e - no evidence of predm, but still encouraged wt loss d/t obesity and ankit [id number] Nolan Bee MD Main Office [address] [address] [place] [address] 12/29/2020 15:29:31 12/29/2020 17:00:48 Adult health examination 002322729 Z00.00 Essential hypertension 62951594 I10 Hyperlipidemia 47029111 E78.5 Tinea pedis 5703756 B35. 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 Followed by Dr. Roberts for pulmonary [id number] Sirisha campbell Main Office [address] [address] [place] [address] 04/14/2021 10:34:49 04/14/2021 11:45:55 Essential hypertension 69445486 I10 pulse running low, pt with orthostati c symptoms and orthostati c BP drop in ER, lower atenolol from 100mg to 75mg, in a few days restart norvasc 5mg check labs in 4 weeks Orthostati c hypotension 97769466 I95.1 see above and hydrate Anemia due to unknown mechanism 18357151 D64.9 hgb very minimally decreased in ER with nl Ht, recheck in 4 weeks. Vertigo 501398452 R42 resolved [id number] Katie Garcia PA-C Main Office [address] [address] [place] [address] 05/13/2021 15:29:28 05/13/2021 16:28:12 Essential hypertension 87847059 I10 stable bp, cont med as dir -- x HR still a little low - so decrease BB from 75mg to 50mg Needs infl uenza immunization 544105226 Z23 Serum ferr itin above reference range 154432146 R77.8 pending HH panel, no FH HH Hyperlipidemia 70418095 E78.2 cont statin as dir [id number] Katie Garcia PA-C Main Office [address] [address] [place] [address] 07/09/2021 15:40:12 07/09/2021 16:59:58 Essential hypertension 03610613 I10 stable bp, cont meds as dir Hyperlipidemia 73677515 E78.2 ldl sig lower - cont statin as dir Gastroesop hageal reflux disease 613357485 K21.9 cont ppi as dir as per GI Hemochromatosis 03772499 6 E83.119 pending hem/onc eval in 2. [id number] Katie Garcia PA-C Main Office [address] [address] [place] [address] 08/31/2021 11:24:12 08/31/2021 12:26:48 Dizziness 372999907 R42 new onset yesterday - believe d/t orthostasi s, herman c hr in the 50s --- advised pt to stop BB, cont to stay hydrated, and switch bp/statin combo to pm doubt vertigo - no h/o such, and curr feels fine, able to move head fine c no dizziness f/u 1-2 wks, sooner if dizziness returns or other cardiac sxs appear Essential hypertension 34658523 I10 stable bp, change meds as dir above/belo w Hyperlipidemia 44097600 E78.2 ldl sig lower - cont statin as dir Hemochromatosis 99685419 6 E83.119 stable, cont f/u c hem/onc [id number] Katie Garcia PA-C Main Office [address] [address] [place] [address] 10/07/2021 15:36:46 10/07/2021 16:05:27 Essential hypertension 93321692 I10 stable bp - cont med as dir Dizziness 060446944 R42 resolved [id number] Katie Garcia PA-C Main Office [address] [address] [place] [address] 02/15/2022 10:17:07 02/15/2022 11:34:54 Adult health examination 681196947 Z00.00 Essential hypertension 33161303 I10 stable bp - cont med as dir Impaired f asting glycemia 881428735 R73.01 A1c 5.1 - offered reassuranc e - no evidence of predm, but still encouraged wt loss d/t obesity and ankit Obstructiv e sleep apnea syndrome 66405352 G47.33 cont cpap, f/u c sleep med as dir Hyperlipidemia 32662198 E78.2 ldl sig lower - cont statin as dir Hemochromatosis 31669560 6 E83.119 stable, cont f/u c hem/onc - next in 1.23 Eczema 07296749 L30.9 seen by derm - cont creams as dir Gastroesop hageal reflux disease 327612845 K21.9 cont ppi as dir as per GI - no evidence of bashir's 2.21 egd Body mass index 30+ - obesity 411263182 E66.01 Z68.38 [id number] Katie Garcia PA-C Main Office [address] [address] [place] [address] 08/19/2022 15:37:22 08/20/2022 09:56:46 Gastroesophageal reflux disease 389991215 K21.9 cont ppi as dir as per GI - no evidence of bashir's 2.21 egd Essential hypertension 44222981 I10 stable bp & cr - cont med as dir Hemochromatosis 56972928 6 E83.119 had recent liver mri & echo / pending cardiac mri, cont f/u c hem/onc check labs c cc: hem/onc Body mass index 30+ - obesity 355464730 E66.01 Z68.39 Impaired f asting glycemia 698411318 R73.01 A1c 5.1 - offered reassuranc e - no evidence of predm, but still encouraged wt loss d/t obesity and nakit Hyperlipidemia 76298868 E78.2 ldl sig lower - cont statin as dir [id number] Jonn Edmond MD Main Office [address] [facility] [address] [facility] [place] [address] 02/03/2023 10:51:54 02/03/2023 11:44:26 Low back pain 585285441 M54.50 Muscular pain. Will take ibuprofen 800 mg tid for the next couple of days and a muscle relaxant. [id number] Katie Garcia PA-C Main Office [address] [facility] [address] [facility] [place] [address] 02/23/2023 14:49:03 02/23/2023 16:15:42 Adult health examination 497171482 Z00.00 Obstructiv e sleep apnea syndrome 79328951 G47.33 cont cpap, f/u c sleep med as dir Hemochromatosis 24785994 6 E83.119 had recent liver mri & echo / pending cardiac mri, cont f/u c hem/onc 8.23 - stable, cont phlebotomy monthly, next ov c hem/onc 10.23 Hyperlipidemia 60597154 E78.2 ldl sig lower - cont statin as dir Essential hypertension 66866823 I10 bp elevated - cont med as dir, will cont to monitor at derm next week and at phlebotomy - let me know if cont to trend up, f/u 1 month for recheck - may need add'l med Gastroesop hageal reflux disease 057542787 K21.9 cont ppi as dir as per GI - no evidence of bashir's 2.21 egd Impaired f asting glycemia 952743508 R73.01 A1c 5.2 - offered reassuranc e - no evidence of predm, but still encouraged wt loss d/t obesity and ankit History of polyp of colon 062669134 Z86.010 next in 5.27 Body mass index 30+ - obesity 951938594 E66.01 Z68.39 Eczema 95479013 L30.9 seen by derm - cont creams as dir [id number] Katie Garcia PA-C Main Office [address] [facility] [address] [facility] [place] [address] 03/24/2023 15:26:07 03/24/2023 16:38:16 Essential hypertension 13966885 I10 bp elevated - cont med as [...] rev possible SEs Gastroesop hageal reflux disease 389154217 K21.9 cont ppi as dir as per GI - no evidence of bashir's 2.21 egdpt requested refill - rx printed so it could be sent to [facility] Hyperlipidemia 12057321 E78.2 ldl sig lower - cont statin as dir, pending recheck lipids [id number] Katie Garcia PA-C Main Office [address] [facility] [address] [place] [address] 09/28/2023 15:36:46 09/28/2023 17:01:55 Essential hypertension 69739020 I10 bp elevated - cont med as [...] cr stable, cont meds as dir Hyperlipidemia 91952092 E78.2 ldl ~ stable - cont statin as dir Gastroesop hageal reflux disease 486137251 K21.9 cont ppi as dir as per GI - no evidence of bashir's 2.21 egdpt requested refill - rx printed so it could be sent to [facility] Hemochromatosis 79941490 6 E83.119 had recent liver mri & echo / pending cardiac mri, cont f/u c hem/onc 3.24 - stable, cont phlebotomy monthly, next ov c hem/onc 4.24 [id number] Katie Garcia PA-C Main Office [address] [facility] [address] [facility] [place] [address] 03/05/2024 08:25:30 03/05/2024 09:41:27 Adult health examination 971096908 Z00.00 colon utd Hemochromatosis 62486594 6 E83.119 had recent liver mri & echo / pending cardiac mri, cont f/u c hem/onc 8.24 - stable, cont phlebotomy monthly, cont c hem/onc q 6 months Hyperlipidemia 94521088 E78.2 ldl ~ stable - cont statin as dir History of polyp of colon 588881984 Z86.010 next in 5.27 Obstructiv e sleep apnea syndrome 09649675 G47.33 cont cpap, f/u c sleep med as dir Gastroesop hageal reflux disease 493093466 K21.9 cont ppi as dir as per GI - no evidence of bashir's 2.21 egdpt requested refill - rx printed so it could be sent to [facility] 8.24 - stable Essential hypertension 79050484 I10 bp elevated - cont med as [...] meds as dir Impaired f asting glycemia 312136358 R73.01 A1c 5.3 - offered reassuranc e - no evidence of predm, but still encouraged wt loss d/t obesity and ankit Nocturia 900736393 R35.1 Body mass index 30+ - obesity 026498942 E66.01 Z68.38 [id number] Katie Garcia PA-C Main Office [address] [facility] [address] [facility] [place] [address] 07/11/2024 11:14:55 07/11/2024 12:40:39 Fever 674994095 R50.9 offered re-assuran ce both covid and flu testing normal Acute sinusitis 64077816 J01.90 rec mucinex, ns spray, warm washcloth side of neck prnrecomme nd probiotics while on abx Deviated nasal septum 12 1505668 J34.2 [id number] Katie Garcia PA-C Main Office [address] [facility] [place] [address] 09/05/2024 15:45:40 09/05/2024 16:44:38 Hyperlipidemia [id number] E78.2 ldl ~ stable - cont statin as dir Essential hypertension [id number] I10 bp elevated - cont med as [...] meds as dir Deviated nasal septum 12 [id number] J34.2 pending see ent 6.25cont ns spray, steam Hemochromatosis [id number] 6 E83.119 had recent liver mri & echo / pending cardiac mri, cont f/u c hem/onc 2.25 - stable, cont phlebotomy monthly, cont c hem/onc q 6 months Impaired f asting glycemia [id number] R73.01 A1c 5.3 - offered reassuranc e - no evidence of predm, but still encouraged wt loss d/t obesity and ankit Heart murmur [id number] R0 1.1 Health Concerns Section Related Observation LastModified by Organization Detai ls LastModified Time None Recorded Concern Status LastModified by Organization Details LastModified Time None Recorded Advance Directives Directive Y: HCP Payers Encounter Date Sequence Insurance Name Policy Number Policy Solares Covered Member ID Sloares Member ID Guarantor Name 03/24/2023 1 [place] [facility] [place] [id number] Naveen J Vadnais [id number] Naveen Vadnais 09/28/2023 1 [place] [employer] [place] [id number] Naveen J Vadnais [id number] Naveen Vadnais 03/05/2024 1 [place] [employer] [place] [id number] Naveen J Vadnais [id number] Naveen Vadnais 07/11/2024 1 [facility] [facility] [place] [id number] Naveen Mayen [id number] Naveen Mayen 09/05/2024 1 [facility] [facility] [place] [id number] Naveen Mayen [id number] Naveen Mayen Notes Date Note Type Note Provider Name and Address Organization Details Recorded Time 03/24/2023 text/html Hypertension F/UReported bypatient.Associated Symptoms:no dizziness; no lightheadedness; no chest pain; no shortness of breath; no palpitations; no edema; no calf pain with exertion Lifestyle:regular exercise;high salt intake Medications:taking medications as directed; no side effects from medication Katie Garcia PA-C [id number], [address], [facility] [place] 03/24/2023 17:02:32 09/28/2023 text/html Hypertension F/UReported bypatient.Associated Symptoms:no dizziness; no lightheadedness; no chest pain; no shortness of breath; no palpitations; no edema; no calf pain with exertion Lifestyle:regular exercise; limiting/avoiding salt Medications:taking medications as directed; no side effects from medication Katie Garcia PA-C [address] [address], [place], [address], [facility] [place] 09/28/2023 17:20:55 03/05/2024 text/html here for annual pe. Katie Garcia PA-C [address], [address], [facility] [place] 03/05/2024 09:39:37 07/11/2024 text/html Patient reports yesterday [...] recent labs - nl Katie Garcia PA-C [address] [address], [place], [address], [facility] [place] 07/11/2024 13:17:05 09/05/2024 text/html Hypertension F/UReported bypatient.Associated Symptoms:no dizziness; no lightheadedness; no chest pain; no shortness of breath; no palpitations; no edema; no calf pain with exertion Lifestyle:regular exercise; limiting/avoiding salt Medications:taking medications as directed; no side effects from medication Katie Garcia PA-C [address] [address], [place], [address], [facility] [place] 09/05/2024 20:38:55
== END 2024-11-02 08:03 | disposition home or self-care (01) ==
LOC: HO.BBR 08:02
PROVIDERS: Visit Provider Hospitalist
DX: Z13.89 Encounter for screening for other disorder (principal)

== ENCOUNTER 2024-11-30 10:01 | Outpatient (REF) | payer BC, SELFPAY ==
--- OUTSIDE RECORDS SUMMARY | 2024-11-30 10:33 | XMS_ITS | Data Portability ---
Author Organization [facility] ([place], [place]), Main Office Address [address] [place] [address] [place] [id number] Care Team Providers Care Gelatin Maker Utility Name Role Phone KATIE GARCIA Primary Care Provider KATINA ROBERTS Town Marshal REINALDO SOL Knitting Supervisor PRASANTH POND Towel Rolling Machine Operator UNIQUE JOHNSON Wood Engraver Assessment No assessment recorded. Plan of Treatment Reminders Order Date Submit Date Provider Last Modified By Organization Details Last Modified Time Details Appointments PE EST 2024 08:45A M Katie Garcia PAGenie Not available Not available Not available Lab HbA1c (hemog lobin A1c), blood 2024 025 MIRIAN [facility] (Centralized Electronic Ordering - All Locations), Patient Can Go To The Location Of Their Choice, [id number] 10/29/2024 13:11:42 BMP, serum or plasma 2024 025 MIRIAN [facility] (Centralized Electronic Ordering - All Locations), Patient Can Go To The Location Of Their Choice, [id number] 10/29/2024 13:11:41 rapid SARS CoV 2 Ag, QL IA, respir atory specim en 2023 024 pmadden In-Office Order, Internal Use Only DO Not Attach Compendium DO Not Attach Compendium, Do Not Delete/merge, [id number] 07/11/2024 12:04:23 rapid flu (A+B) 2023 024 MIRIAN In-Office Order, Internal Use Only DO Not Attach Compendium DO Not Attach Compendium, Do Not Delete/merge, [id number] 07/11/2024 12:13:24 HbA1c (hemog lobin A1c), blood 2023 024 MIRIAN [facility] (Centralized Electronic Ordering - All Locations), Patient Can Go To The Location Of Their Choice, [id number] 07/03/2024 14:06:52 PSA, total, serum or plasma 2023 024 MIRIAN [facility] (Centralized Electronic Ordering - All Locations), Patient Can Go To The Location Of Their Choice, [id number] 07/03/2024 14:06:53 lipid panel, serum 2023 024 MIRIAN [facility] (Centralized Electronic Ordering - All Locations), Patient Can Go To The Location Of Their Choice, 07/03/2024 14:06:51 CMP, serum or plasma 2023 024 MIRIAN [facility] (Centralized Electronic Ordering - All Locations), Patient Can Go To The Location Of Their Choice, [id number] 07/03/2024 14:06:50 CBC w/ auto diff 2023 024 MIRIAN [facility] (Centralized Electronic Ordering - All Locations), Patient Can Go To The Location Of Their Choice, [id number] 07/03/2024 14:06:49 Referral otolar yngolo wanda referr al 2023 024 [facility] , [address], [facility] [address], [place], [address], 08/13/2024 08:19:13 nutrit ionist /dieti sarbjit referr al 2023 024 [email or web address] Not available 03/05/2024 10:02:15 Procedures None record ed. Surgeries None record ed. Imaging US, echoca rdiogr am - please compar kishore alvarez c mri 3.6.23 2024 025 [email or web address] [facility], [address] , [place], [address], 11/21/2024 10:25:32 Medication Orders amoxic illin 875 mg-pot assium clavul anate 125 mg tablet 2023 025 [facility]acy #[id number], [address] [place], [address], 09/05/2024 16:10:07 lansop razole 30 mg capsul e,renuka yed releas e 2023 024 [email or web address] Not available 09/17/2024 13:44:13 lisino pril 5 mg tablet 2022 023 [facility] #[id number], [address] [facility] [place], [address], 03/24/2023 16:31:04 lansop razole 30 mg capsul e,renuka yed releas e 2022 023 [email or web address] Not available 03/25/2023 08:34:52 Patient Targets Encounter Date Encounter Id Patient Goals Patient Target Last Modified By Organization Details Last Modified Time 03/24/2023 [id number] long term care social worker goal of Blood Pressure 140 / 90 Not available Not available Not available [facility] goal of Exercise level Not available Not available Not available [facility] goal of Tobacco Smoking Status Not available [...] goal. pmadden Not available 03/24/2023 17:01:58 09/28/2023 [id number] long term care social worker goal of Blood Pressure 140 / 90 Not available Not available Not available [facility] goal of Exercise level Not available Not available Not available [facility] goal of Tobacco Smoking Status Not available [...] goal. pmadden Not available 09/28/2023 17:19:54 03/05/2024 [id number] [facility] goal of Blood Pressure 140 / 90 Not available Not available Not available [facility] goal of Exercise level Not available Not available Not available long term care social worker goal of Tobacco Smoking Status Not available Not available Not available [facility] goal of Excess Body Weight Loss % [...] goals. pmadden Not available 03/05/2024 09:28:32 09/05/2024 [id number] long term care social worker goal of Blood Pressure 140 / 90 Not available Not available Not available [facility] goal of Exercise level Not available Not available Not available long term care social worker goal of Tobacco Smoking Status Not available [...] By Organization Details Last Modified Time 03/24/2023 [id number] high blood pressure: care instructions pmadden Not [...] medication. pmadden Not available 03/24/2023 17:01:13 09/28/2023 [id number] Medications (OTC , herbal therapies, supplements) reviewed and reconciled with patient and or caregiver, including potential side effects, drug interactions, instructions, and the consequences of not taking medication. Reviewed potential barriers to medication adherence, such as side effects from medication or cost of medication. pmadden Not available 09/28/2023 17:20:36 03/05/2024 [id number] Prostate Cancer Screening pmadden Not available 03/05/2024 [...] medication. pmadden Not available 03/05/2024 09:29:04 07/11/2024 [id number] Acute Sinusitis: Care Instructions pmadden Not available 07/11/2024 12:37:21 saline nasal washes: care instructions pmadden Not available 07/11/2024 12:37:21 eustachian tube problems: care instructions pmadden Not available 07/11/2024 12:37:21 Follow up if no improvement or if symptoms worsen. pmadden Not available 07/11/2024 13:16:38 09/05/2024 [id number] Medications (OTC , herbal therapies, supplements) reviewed and reconciled with patient and or caregiver, including potential side effects, drug interactions, instructions, and the consequences of not taking medication. Reviewed potential barriers to medication adherence, such as side effects from medication or cost of medication. 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 Referral fo r Deviated nasal septum Referring [...] of Clini tyler and Appli ed Resea [facility] Educa tion Volum e 43, Suppl ement 1 Not Available [facility] (Centralized Electronic Ordering - All Locations) Patient Can Go To The Location Of Their Choice, [id number] 09/24/2023 10:29:34 07/01/20 24 07/02/2024 CBC WITH DIFFE RENTI AL/PL ATELE T WBC 5.9 x10e3 /uL 3.4-10 .8 normal Not Available [facility] ([facility]) [address] [place], [address], 07/03/2024 14:06:49 07/01/20 24 07/02/2024 CBC WITH DIFFE RENTI AL/PL ATELE T RBC 4.40 x10e6 /uL 4.14-5 .80 normal Not Available [facility] ([facility]) [address] [place], [address], 07/03/2024 14:06:49 07/01/20 24 07/02/2024 CBC WITH DIFFE RENTI AL/PL ATELE T hemoglobin 12.3 g/dL 13.0-1 7.7 below low normal Not Available [facility] ([facility]) [address] [place], [address], 07/03/2024 14:06:49 07/01/20 24 07/02/2024 CBC WITH DIFFE RENTI AL/PL ATELE T hematocrit 38.3 % 37.5-5 1.0 normal Not Available [facility] ([facility]) [address] [place], [address], 07/03/2024 14:06:49 07/01/20 24 07/02/2024 CBC WITH DIFFE RENTI AL/PL ATELE T MCV 87 fL 79-97 normal Not Available [facility] ([facility]) [address] [place], [address], 07/03/2024 14:06:49 07/01/20 24 07/02/2024 CBC WITH DIFFE RENTI AL/PL ATELE T MCH 28.0 pg 26.6-3 3.0 normal Not Available [facility] ([facility]) [address], [place], [address], 07/03/2024 14:06:49 07/01/20 24 07/02/2024 CBC WITH DIFFE RENTI AL/PL ATELE T MCHC 32.1 g/dL 31.5-3 5.7 normal Not Available [facility] ([facility]) [address], [place], [address], 07/03/2024 14:06:49 07/01/20 24 07/02/2024 CBC WITH DIFFE RENTI AL/PL ATELE T RDW 13.1 % 11.6-1 5.4 Not Available [facility] ([facility]) [address], [place], [address], 07/03/2024 14:06:49 07/01/20 24 07/02/2024 CBC WITH DIFFE RENTI AL/PL ATELE T platelets 323 x10e3 /uL 150-45 0 normal Not Available [facility] ([facility]) [address], [place], [address], 07/03/2024 14:06:49 07/01/20 24 07/02/2024 CBC WITH DIFFE RENTI AL/PL ATELE T neutrophils 60 % not estab. normal Not Available [facility] ([facility]) [address], [place], [address], 07/03/2024 14:06:49 07/01/20 24 07/02/2024 CBC WITH DIFFE RENTI AL/PL ATELE T lymphs 29 % not estab. normal Not Available [facility] ([facility]) [address] [place], [address], 07/03/2024 14:06:49 07/01/20 24 07/02/2024 CBC WITH DIFFE RENTI AL/PL ATELE T monocytes 5 % not estab. normal Not Available [facility] ([facility]) [address], [place], [address], 07/03/2024 14:06:49 07/01/20 24 07/02/2024 CBC WITH DIFFE RENTI AL/PL ATELE T eos 4 % not estab. normal Not Available [facility] ([facility]) [address], [place], [address], 07/03/2024 14:06:49 07/01/20 24 07/02/2024 CBC WITH DIFFE RENTI AL/PL ATELE T basos 1 % not estab. normal Not Available [facility] ([facility]) [address], [place], [address], 07/03/2024 14:06:49 07/01/20 24 07/02/2024 CBC WITH DIFFE RENTI AL/PL ATELE T immature cells REFORESTATION WORKER Not Available [facility] ([facility]) [address] [place], [address], 07/03/2024 14:06:49 07/01/20 24 07/02/2024 CBC WITH DIFFE RENTI AL/PL ATELE T neutrophils (absolute) 3.6 x10e3 /uL 1.4-7. 0 normal Not Available [facility] ([facility]) [address] [place], [address], 07/03/2024 14:06:49 07/01/20 24 07/02/2024 CBC WITH DIFFE RENTI AL/PL ATELE T lymphs (absolute) 1.7 x10e3 /uL 0.7-3. 1 normal Not Available [facility] ([facility]) [address] [place], [address], 07/03/2024 14:06:49 07/01/20 24 07/02/2024 CBC WITH DIFFE RENTI AL/PL ATELE T monocytes(ab solute) 0.3 x10e3 /uL 0.1-0. 9 normal Not Available [facility] ([facility]) [address], [place], [address], 07/03/2024 14:06:49 07/01/20 24 07/02/2024 CBC WITH DIFFE RENTI AL/PL ATELE T eos (absolute) 0.2 x10e3 /uL 0.0-0. 4 normal Not Available [facility] ([facility]) [address], [place], [address], 07/03/2024 14:06:49 07/01/20 24 07/02/2024 CBC WITH DIFFE RENTI AL/PL ATELE T baso (absolute) 0.0 x10e3 /uL 0.0-0. 2 normal Not Available [facility] ([facility]) [address], [place], [address], 07/03/2024 14:06:49 07/01/20 24 07/02/2024 CBC WITH DIFFE RENTI AL/PL ATELE T immature granulocytes 1 % not estab. Not Available [facility] ([facility]) [address], [place], [address], 07/03/2024 14:06:49 07/01/20 24 07/02/2024 CBC WITH DIFFE RENTI AL/PL ATELE T immature grans (abs) 0.1 x10e3 /uL 0.0-0. 1 Not Available [facility] ([facility]) [address] [place], [address], 07/03/2024 14:06:49 07/01/20 24 07/02/2024 CBC WITH DIFFE RENTI AL/PL ATELE T NRBC REFORESTATION WORKER Not Available [facility] ([facility]) [address] [place], [address], 07/03/2024 14:06:49 07/01/20 24 07/02/2024 CBC WITH DIFFE LAURA AL/PL LETICIA T hematology comments: REFORESTATION WORKER Not Available [facility] ([facility]) [address], [place], [address], 07/03/2024 14:06:49 07/01/20 24 07/03/2024 COMP. METAB OLIC PANEL (14) glucose 108 mg/dL 70-99 above high normal Not Available [facility] ([facility]) [address], [place], [address], 07/03/2024 14:06:50 07/01/20 24 07/03/2024 COMP. METAB OLIC PANEL (14) BUN 20 mg/dL 6-24 normal Not Available [facility] ([facility]) [address], [place], [address], 07/03/2024 14:06:50 07/01/20 24 07/03/2024 COMP. METAB OLIC PANEL (14) creatinine 1.17 mg/dL 0.76-1 .27 normal Not Available [facility] ([facility]) [address], [place], [address], 07/03/2024 14:06:50 07/01/20 24 07/03/2024 COMP. METAB OLIC PANEL (14) eGFR 72 mL/mi n/1.7 3 >59 normal Not Available [facility] ([facility]) [address], [place], [address], 07/03/2024 14:06:50 07/01/20 24 07/03/2024 COMP. METAB OLIC PANEL (14) BUN/creatini ne ratio 17 9-20 normal Not Available [facility] ([facility]) [address] [place], [address], 07/03/2024 14:06:50 07/01/20 24 07/03/2024 COMP. METAB OLIC PANEL (14) sodium 140 mmol/ L 134-14 4 normal Not Available [facility] ([facility]) [address] [place], [address], 07/03/2024 14:06:50 07/01/20 24 07/03/2024 COMP. METAB OLIC PANEL (14) potassium 4.6 mmol/ L 3.5-5. 2 normal Not Available [facility] ([facility]) [address] [place], [address], 07/03/2024 14:06:50 07/01/20 24 07/03/2024 COMP. METAB OLIC PANEL (14) chloride 105 mmol/ L 96-106 normal Not Available [facility] ([facility]) [address] [place], [address], 07/03/2024 14:06:50 07/01/20 24 07/03/2024 COMP. METAB OLIC PANEL (14) carbon dioxide, total 23 mmol/ L 20-29 normal Not Available [facility] ([facility]) [address] [place], [address], 07/03/2024 14:06:50 07/01/20 24 07/03/2024 COMP. METAB OLIC PANEL (14) calcium 9.2 mg/dL 8.7-10 .2 normal Not Available [facility] ([facility]) [address] [place], [address], 07/03/2024 14:06:50 07/01/20 24 07/03/2024 COMP. METAB OLIC PANEL (14) protein, total 6.8 g/dL 6.0-8. 5 normal Not Available [facility] ([facility]) [address] [place], [address], 07/03/2024 14:06:50 07/01/20 24 07/03/2024 COMP. METAB OLIC PANEL (14) albumin 4.0 g/dL 3.8-4. 9 normal Not Available [facility] ([facility]) [address] [place], [address], 07/03/2024 14:06:50 07/01/20 24 07/03/2024 COMP. METAB OLIC PANEL (14) globulin, total 2.8 g/dL 1.5-4. 5 Not Available [facility] ([facility]) [address] [place], [address], 07/03/2024 14:06:50 07/01/20 24 07/03/2024 COMP. METAB OLIC PANEL (14) bilirubin, total 0.3 mg/dL 0.0-1. 2 normal Not Available [facility] ([facility]) [address] [place], [address], 07/03/2024 14:06:50 07/01/20 24 07/03/2024 COMP. METAB OLIC PANEL (14) alkaline phosphatase 103 IU/L 44-121 normal Not Available [facility] ([facility]) [address] [place], [address], 07/03/2024 14:06:50 07/01/20 24 07/03/2024 COMP. METAB OLIC PANEL (14) AST (SGOT) 17 IU/L 0-40 normal Not Available [facility] ([facility]) [address] [place], [address], 07/03/2024 14:06:50 07/01/20 24 07/03/2024 COMP. METAB OLIC PANEL (14) ALT (SGPT) 15 IU/L 0-44 normal Not Available [facility] ([facility]) [address] [place], [address], 07/03/2024 14:06:50 07/01/20 24 07/03/2024 LIPID PANEL cholesterol, total 142 mg/dL 100-19 9 normal Not Available [facility] ([facility]) [address] [place], [address], 07/03/2024 14:06:51 07/01/20 24 07/03/2024 LIPID PANEL triglyceride s 55 mg/dL 0-149 normal Not Available [facility] ([facility]) [address] [place], [address], 07/03/2024 14:06:51 07/01/20 24 07/03/2024 LIPID PANEL HDL cholesterol 36 mg/dL >39 below low normal Not Available [facility] ([facility]) [address] [place], [address], 07/03/2024 14:06:51 07/01/20 24 07/03/2024 LIPID PANEL VLDL cholesterol tyler 12 mg/dL 5-40 Not Available [facility] ([facility]) [address] [place], [address], 07/03/2024 14:06:51 07/01/20 24 07/03/2024 LIPID PANEL LDL chol calc ([facility]) 94 mg/dL 0-99 Not Available [facility] ([facility]) [address] [place], [address], 07/03/2024 14:06:51 07/01/20 24 07/03/2024 LIPID PANEL LDL calc comment: REFORESTATION WORKER Not Available [facility] ([facility]) [address] [place], [address], 07/03/2024 14:06:51 07/01/20 24 07/03/2024 HEMOG LOBIN A1C hemoglobin A1C 5.3 % 4.8-5. 6 normal Predi abete s: 5.7 - 6.4 Diabe cat: >6.4 Glyce ivet contr ol for adult s with diabe cat: <7.0 Not Available [facility] ([facility]) [address] [place], [address], 07/03/2024 14:06:52 07/01/20 24 07/03/2024 PROST ATE-S PECIF IC AG prostate specific Ag 1.0 NG/mL 0.0-4. 0 normal René ECLIA metho dolog y. Accor buster to the [employer] can [employer] [...] of sunshine galo se. Not Available [facility] ([facility]) [address], [place], [address], 07/03/2024 14:06:53 07/11/20 24 07/11/2024 rapid flu (A+B) Flu A negati ve Not Available In-Office Order Internal Use Only DO Not Attach Compendium DO Not Attach Compendium, Do Not Delete/merge, [id number] 07/11/2024 11:40:25 07/11/20 24 07/11/2024 rapid flu (A+B) Flu B negati ve Not Available In-Office Order Internal Use Only DO Not Attach Compendium DO Not Attach Compendium, Do Not Delete/merge, [id number] 07/11/2024 11:40:25 07/11/20 24 07/11/2024 rapid SARS CoV 2 Ag, QL IA, respi rator y speci men RAPID SARS COV 2 negati ve Not Available In-Office Order Internal Use Only DO Not Attach Compendium DO Not Attach Compendium, Do Not Delete/merge, [id number] 07/11/2024 11:40:03 10/28/19 25 10/28/2024 BASIC METAB OLIC PANEL (8) glucose 115 mg/dL 70-99 above high normal Not Available [facility] ([facility]) [address], [place], [address], 10/29/2024 13:11:41 10/28/19 25 10/28/2024 BASIC METAB OLIC PANEL (8) BUN 24 mg/dL 6-24 normal Not Available [facility] ([facility]) [address] [place], [address], 10/29/2024 13:11:41 10/28/19 25 10/28/2024 BASIC METAB OLIC PANEL (8) creatinine 1.09 mg/dL 0.76-1 .27 normal Not Available [facility] ([facility]) [address] [place], [address], 10/29/2024 13:11:41 10/28/19 25 10/28/2024 BASIC METAB OLIC PANEL (8) eGFR 78 mL/mi n/1.7 3 >59 normal Not Available [facility] ([facility]) [address] [place], [address], 10/29/2024 13:11:41 10/28/19 25 10/28/2024 BASIC METAB OLIC PANEL (8) BUN/creatini ne ratio 22 9-20 above high normal Not Available [facility] ([facility]) [address] [place], [address], 10/29/2024 13:11:41 10/28/19 25 10/28/2024 BASIC METAB OLIC PANEL (8) sodium 146 mmol/ L 134-14 4 above high normal Not Available [facility] ([facility]) [address] [place], [address], 10/29/2024 13:11:41 10/28/19 25 10/28/2024 BASIC METAB OLIC PANEL (8) potassium 4.9 mmol/ L 3.5-5. 2 normal Not Available [facility] ([facility]) [address] [place], [address], 10/29/2024 13:11:41 10/28/19 25 10/28/2024 BASIC METAB OLIC PANEL (8) chloride 110 mmol/ L 96-106 above high normal Not Available [facility] ([facility]) [address] [place], [address], 10/29/2024 13:11:41 10/28/19 25 10/28/2024 BASIC METAB OLIC PANEL (8) carbon dioxide, total 22 mmol/ L 20-29 normal Not Available [facility] ([facility]) [address] [place], [address], 10/29/2024 13:11:41 10/28/19 25 10/28/2024 BASIC METAB OLIC PANEL (8) calcium 9.6 mg/dL 8.7-10 .2 normal Not Available [facility] ([facility]) [address] [place], [address], 10/29/2024 13:11:41 10/28/19 25 10/28/2024 HEMOG LOBIN A1C hemoglobin A1C 5.2 % 4.8-5. 6 normal Predi abete s: 5.7 - 6.4 Diabe cat: >6.4 Glyce ivet contr ol for adult s with diabe cat: <7.0 Not Available [facility] ([facility]) [address], [place], [address], 10/29/2024 13:11:42 09/07/19 25 09/27/2022 MRI, heart funct ion and morph ology , w/wo contr ast No observ ation record ed. pmadden Not Available 2024 13:24:15 Result Notes None recorded. Problems Name Problem SNOMED Code Status Onset Date Resolution Date Notes Provider Name and Address Organization Details Recorded Time Adult health examinat ion Completed 201202/12/2014 RECORDED 05/22/20 13 4:02PM BY NATASHA OHARA MA, ANNOTATI ON/SOHAN orantes MA [facility] 6 14:59:31 Dependen ce on enabling machine or device [id number] Completed 201304/11/2017 BiPAP machine at bedtime FARAZ Solorzano [facility] ([place], [place]) 7 09:36:26 Conjunct ivitis [id number] Completed 201102/12/2014 RECORDED 02/29/20 12 4:20PM BY EDUIN LOVE MA, ANNOTATI ON/ADDEN DUM Pamela orantes [facility] ([place], [place]) 6 14:59:31 Gastroes ophageal reflux disease 217287321 Active 2012 STORY: TREATMEN T FAILURE WITH OMEPRAZO LE. STABLE ON PREVACID FARAZ Solorzano [facility] ([place], [place]) 6 09:20:40 [facility] hyperten arlin 88286307 Active [address] [facility] ([place], [place]) 6 14:59:31 Malaise and fatigue 132294642 Completed 201102/12/2014 RECORDED 02/29/20 12 4:20PM BY EDUIN LOVE MA, ANNOTATI ON/ADDEN DUM Pamela orantes [facility] ([place], [place]) 6 14:59:31 Hyperlip idemia 08673809 Active 2012 5.19 - ascvd risk of 6.2% // 11.20 - 9.6% Katie Garcia PA-C [address] [facility] [address], [place], [address] , [facility] 0 17:04:54 Influenz a vaccine needed [id number] 06 Completed 201002/12/2014 DATE: 08/18/19 11; RECORDED 02/29/20 12 4:20PM BY EDUIN LOVE MA, ANNOTATI ON/ADDEN DUM Pamela orantes [facility] ([place], [place]) 6 14:59:31 Administ ration of bacteria l and viral vaccine Completed 200802/12/2014 RECORDED 04/14/20 09 9:17AM BY EDUIN LOVE MA, OFFICE VISIT Pamela orantes, [facility] ([place], [place]) 6 14:59:31 Obesity 986435897 Active 2012 Pamela orantes, [facility] ([place], [place]) 6 14:59:31 Obstruct cindy sleep apnea syndrome 79296832 Active 2012 Pamela Musa null, [facility] ([place], [place]) 6 14:59:31 Osteoart hritis 861704064 Active 2012 Pamela orantes, [facility] ([place], [place]) 6 14:59:31 Referred otalgia 13852180 Completed 201102/12/2014 RECORDED 02/29/20 12 4:20PM BY EDUIN LOVE MA, ANNOTATI ON/ADDEN DUM Pamela Musa null, [facility] ([place], [place]) 6 14:59:31 Screenin g for malignan t neoplasm of colon Completed 201102/12/2014 RECORDED 02/29/20 12 4:20PM BY EDUIN LOVE MA, ANNOTATI ON/ADDEN DUM Pamela Musa null, [facility] ([place], [place]) 6 14:59:31 Adult health examinat ion Completed 201203/04/2014 RECORDED 05/22/20 13 4:02PM BY NATASHA OHARA MA, ANNOTATI ON/ADDEN DUM Pamela Musa null, [facility] ([place], [place]) 6 14:59:31 Conjunct ivitis 7803477 Completed 201103/04/2014 RECORDED 02/29/20 12 4:20PM BY EDUIN LOVE MA, ANNOTATI ON/ADDEN DUM Pamela Musa null, [facility] ([place], [place]) 6 14:59:31 Malaise and fatigue 554525375 Completed 201103/04/2014 RECORDED 02/29/20 12 4:20PM BY EDUIN LOVE MA, ANNOTATI ON/ADDEN DUM Pamela orantes, [facility] ([place], [place]) 6 14:59:31 Influenz a vaccine needed [id number] 06 Completed 201003/04/2014 DATE: 08/18/19 11; RECORDED 02/29/20 12 4:20PM BY EDUIN LOVE MA, ANNOTATI ON/ADDEN DUM Pamela orantes, [facility] ([place], [place]) 6 14:59:31 Administ ration of bacteria l and viral vaccine Completed 200803/04/2014 RECORDED 04/14/20 09 9:17AM BY EDUIN LOVE MA, OFFICE VISIT Pamela orantes [facility] ([place], [place]) 6 14:59:31 Referred otalgia [id number] Completed 201103/04/2014 RECORDED 02/29/20 12 4:20PM BY EDUIN LOVE MA, ANNOTATI ON/ADDEN DUM Pamela orantes, [facility] ([place], [place]) 6 14:59:31 Screenin g for malignan t neoplasm of colon Completed 201103/04/2014 RECORDED 02/29/20 12 4:20PM BY EDUIN LOVE MA, ANNOTATI ON/ADDEN DUM Pamela orantes, [facility] ([place], [place]) 6 14:59:31 Body mass index 30+ - obesity 651305883 Completed 06/13/2019 Removal Reason: dx changed Adela Richardscyn orantes, [facility] ([place], [place]) 9 15:51:20 Tinea pedis 3038418 Active Pamela orantes [facility] ([place], [place]) 6 14:59:31 Allergic rhinitis 23743566 Active Pmaela orantes, [facility] ([place], [place]) 6 14:59:31 Dependen ce on biphasic positive airway pressure ventilat ion 525311665 Active 2013 bi-PAP machine Eduin guadarrama MA null, [facility] ([place], [place]) 7 09:36:48 Serum ferritin above referenc e range 022107162 Completed 202003/05/2024 Katie Garcia PA-C [address], [place], [address] , [facility] 4 09:24:56 Hemochro matosis 559705968 Active 2020 Katie Garcia PA-C [address], [place], [address] , [facility] 1 13:13:24 Eczema 25017059 Active 2021 Katie Garcia PA-C [address], [place], [address] , [facility] 2 11:12:49 History of polyp of colon 117247910 Active 2022 Katie Garcia PA-C [address], [place], [address] , [facility] 3 15:57:39 Deviated nasal septum 198551043 Active 2024 Katie Garcia PA-C [address] [facility] [address], [place], [address] , [facility] 5 16:19:23 Impaired fasting glycemia 813307763 Active 2024 Katie Garcia PA-C [address] [facility] [address], [place], [address] , [facility] 5 16:24:29 Heart murmur 16819121 Active 2024 Katie Garcia PA-C [address] [facility] [address], [place], [address] , [facility] 5 16:33:00 Problem Notes None recorded. Procedures Surgical History Date Name Laterality Status Provider Name and Address Organization Details Recorded Time 2 Colonoscopy completed [facility] 01/05/2022 15:11:44 1 EGD completed [facility] 09/17/2020 09:36:11 Imaging Results Imaging Date [...] completed RECORDED 05/11/20 10 9:43AM BY PAMELLA ROCAH, MEDICATI ON AUTO-JOVANI CTIVATIO N;APPLY ONE HALF [...] TAKE 1 TABLET BY MOUTH EVERY DAY 2024 active Not Available Not Available Not Avai lable clobetaso l 0.05 % topical ointment APPLY [...] 08/13 completed RECORDED 08/31/19 12 4:11PM BY SRAAH ROSADO I, MEDICATI ON AUTO-JOVANI CTIVATIO N; [...] 193.04 cm 98.6 [degF] Eduin hooker MA [facility] ([place], [place]) 03/24/2023 16:05:13 Date Recorded Body mass index (BMI) Body weight Heart rate Oxygen saturation Oxygen saturation in Arterial blood by Pulse oximetry Systolic blood pressure Diastolic blood pressure Provider Name and Address Organization Details Last Updated DateTime 3 39.8 kg/m2 829292. 7 g 64 /min 97 % 97 % 151 mm[Hg] 75 mm[Hg] Geraldo Sheridan MA [facility] ([place], [place]) 3 16:00:31 Date Recorded Systolic blood pressure Diastolic blood pressure Provider Name and Address Organization Details Last Updated DateTime 03/24/2023 144 mm[Hg] 74 mm[Hg] Katie Garcia PA-C [address], [address], [facility] ([place], [place]) 03/24/2023 16:26:18 Date Recorded Body height Body mass index (BMI) Body weight Oxygen saturation Oxygen saturation in Arterial blood by Pulse oximetry Heart rate Body temperature Systolic blood pressure Diastolic blood pressure Provider Name and Address Organization Details Last Updated DateTime 4 193.04 cm 39.1 kg/m2 631564. 95 g 97 % 97 % 73 /min 98.7 [degF] 126 mm[Hg] 76 mm[Hg] Maryse Garcia MA [facility] ([place], [place]) 4 15:51:17 Date Recorded Body height Body mass index (BMI) Body weight Heart rate Oxygen saturation Oxygen saturation in Arterial blood by Pulse oximetry Body temperature Systolic blood pressure Diastolic blood pressure Provider Name and Address Organization Details Last Updated DateTime 4 193.04 cm 38.2 kg/m2 820341 g 73 /min 98 % 98 % 98.1 [degF] 161 mm[Hg] 85 mm[Hg] Kari Alfredo MA [facility] ([place], [place]) 4 08:36:42 Date Recorded Systolic blood pressure Diastolic blood pressure Provider Name and Address Organization Details Last Updated DateTime 03/05/2024 128 mm[Hg] 78 mm[Hg] Katie Garcia PA-C [address] [facility], [place], [address], [facility] 03/05/2024 09:35:52 Date Recorded Body height Body mass index (BMI) Body weight Heart rate Oxygen saturation Oxygen saturation in Arterial blood by Pulse oximetry Body temperature Systolic blood pressure Diastolic blood pressure Provider Name and Address Organization Details Last Updated DateTime 4 193.04 cm 37.4 kg/m2 184759. 86 g 73 /min 96 % 96 % 99.4 [degF] 167 mm[Hg] 93 mm[Hg] Shyanne Herber [facility] 4 11:36:38 Date Recorded Systolic blood pressure Diastolic blood pressure Provider Name and Address Organization Details Last Updated DateTime 07/11/2024 124 mm[Hg] 82 mm[Hg] Katie Garcia PA-C [address] [facility] [address] [facility], [place], [address], [facility] 07/11/2024 12:36:14 Date Recorded Body height Body mass index (BMI) Body weight Heart rate Oxygen saturation Oxygen saturation in Arterial blood by Pulse oximetry Body temperature Systolic blood pressure Diastolic blood pressure Provider Name and Address Organization Details Last Updated DateTime 5 193.04 cm 38.1 kg/m2 957397. 41 g 62 /min 98 % 98 % 98 [degF] 155 mm[Hg] 83 mm[Hg] Shyanne [facility] [place] 5 16:10:56 Date Recorded Systolic blood pressure Diastolic blood pressure Provider Name and Address Organization Details Last Updated DateTime 09/05/2024 136 mm[Hg] 78 mm[Hg] Katie Garcia PA-C [address] [place] [address], [address], [facility] 09/05/2024 16:36:36 Date Recorded Systolic blood pressure Diastolic blood pressure Provider Name and Address Organization Details Last Updated DateTime 05/13/2023 130 mm[Hg] 77 mm[Hg] Betsy Mary Ann [facility] ([place], [place]) 07/12/2023 09:04:38 Social History Question Answer Notes LastModified by Organizat ion Details LastModified Time Tobacco Smoking Status Never Smoker FARAZ Gottlieb, [facility] ([place], [place]) 04/09/2014 13:57:49 Do You Have An Advance Directive? 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 No Pt Tested At [facility] [place] [place] [facility] 04/13/2021=ne true Information not available 06/30/2020 Have You Recently Traveled To A COVID-19 High Risk Area Or Gathering In The Last 10 Days? No [email or web address] Information not available 10/06/2020 What Was The [...] available 09:15:29 Notes:ADOPTED Medical History Condition Response Reflux/GERD Y High Cholesterol Y Acid Reflux (GERD) Y Hypertension Y Immunizations Vaccine Type Date Status Note Provider Nam e and Address Organization Details Recorded Time Tdap 12/24/19 15 completed Nolan Bee MD [address] [address], [place], [address], [facility] 04/10/2015 09:16:26 COVID-19 vaccine, vector-nr, rS-Ad26, PF, 0.5 mL 10/27/19 21 completed Maren Donnelly MA null, [facility] 07/09/2021 15:56:36 COVID-19, mRNA, LNP-S, PF, 30 mcg/0.3 mL dose 07/21/20 21 completed Shyanne Green MA null, [facility] 08/31/2021 11:33:32 Influenza, split virus, quadrivalent, PF 04/11/20 17 cancelled patient objection Not Available [facility] 08/11/2019 02:22:07 zoster recombinant 12/24/19 20 cancelled patient objection Katie Garica PA-C [address] [address], [place], [address], [facility] 12/24/2019 17:04:31 Influenza, split virus, quadrivalent, PF 05/13/20 21 cancelled patient objection Katie Garcia PA-C [address] [facility] [address], [place], [address], [facility] [place] 05/13/2021 17:32:30 Tdap 04/14/20 09 completed Not Available [facility] 02/05/2014 14:04:51 Past Encounters Encounter ID Performer Location Encounter Start Date Encounter Closed Date Diagnosis/Indication Diagnosis SNOMED-CT Code Diagnosis ICD10 Code Diagnosis Note [id number] autoEComm erce [address] [facility] [place] [address] 04/26/2006 00:00:00 [id number] autoEComm erce [address] [facility] [place] [address] 02/16/2006 00:00:00 [id number] autoEComm erce [address] [facility] [place] [address] 04/19/2005 00:00:00 [id number] autoEComm erce [address] [facility] [place] [address] 10/18/2006 00:00:00 [id number] autoEComm erce [address] [facility] [place] [address] 04/12/2007 00:00:00 [id number] autoEComm erce [address] [facility] [place] [address] 10/09/2007 00:00:00 [id number] autoEComm erce [address] [facility] [place] [address] 01/08/2008 00:00:00 [id number] autoEComm erce [address] [facility] [place] [address] 09/03/2008 00:00:00 [id number] autoEComm erce [address] [facility] [place] [address] 10/30/2008 00:00:00 [id number] autoEComm erce [address] [facility] [place] [address] 04/14/2009 00:00:00 [id number] autoEComm erce [address] [facility] [address] [place] [address] 11/11/2009 00:00:00 [id number] autoEComm erce [address] [facility] [place] [address] 11/24/2009 00:00:00 [id number] autoEComm erce [address] [facility] [place] [address] 08/18/2010 00:00:00 [id number] autoEComm erce [address] [facility] [place] [address] 02/17/2011 00:00:00 [id number] autoEComm erce [address] [facility] [place] [address] 08/31/2011 00:00:00 [id number] autoEComm erce [address] [facility] [place] [address] 02/29/2012 00:00:00 [id number] autoEComm erce [address] [facility] [place] [address] 11/21/2012 00:00:00 [id number] autoEComm erce [address] [facility] [place] [address] 05/22/2013 00:00:00 [id number] Nolan Bee MD Main Office [address] [address] [place], [place] [address] 04/09/2014 13:43:19 04/09/2014 14:37:31 Essential hypertension 82902553 Hyperlipidemia 23129312 Gastroesop hageal reflux disease 056531053 Adult heal th examination 110397378 Body mass index 30+ - obesity 218559241 Tinea pedis 7316167 [id number] Nolan Bee MD Main Office [address] [address] [place], [place] [address] 10/14/2014 15:31:51 10/14/2014 16:48:28 Essential hypertension 67530594 Gastroesop hageal reflux disease 296938403 Body mass index 30+ - obesity 673108522 [id number] Nolan Bee MD Main Office [address] [address] [place] [address] 04/10/2015 08:53:53 04/10/2015 09:47:10 Adult health examination 694063205 Essential hypertension 90462214 Hyperlipidemia 06790643 Obstructiv e sleep apnea syndrome 65315503 Body mass index 30+ - obesity 217090259 [id number] Nolan Bee MD Main Office [address] [address] [place] [address] 10/16/2015 15:50:17 10/16/2015 16:32:56 Essential hypertension 41159286 I10 Gastroesop hageal reflux disease 352736058 K21.9 Obstructiv e sleep apnea syndrome 30602947 G47.33 Allergic rhinitis 390575 04 J30.9 Body mass index 30+ - obesity 624729422 Z68.37 [id number] Nolan Bee MD Main Office [address] [address] [place] [address] 04/13/2016 09:02:56 04/13/2016 10:00:34 Adult health examination 048865567 Z00.00 Essential hypertension 49281990 I10 Obstructiv e sleep apnea syndrome 84385457 G47.33 Body mass index 30+ - obesity 636898215 Z68.37 Fatigue 39175585 R53.83 [id number] Nolan Bee MD Main Office [address] [address] [place] [address] 10/12/2016 16:11:42 10/12/2016 17:13:55 Essential hypertension 33029021 I10 Hyperlipidemia 89432267 E78.5 Fatigue 76928127 R53.83 Obstructiv e sleep apnea syndrome 23507942 G47.33 Continues to benefit from treatment. Followed by Dr. Roberts for pulmonary [id number] Nolan Bee MD Main Office [address] [address] [place] [address] 04/11/2017 09:31:51 04/11/2017 10:22:26 Essential hypertension 23212717 I10 Hyperlipidemia 61803434 E78.5 Immunization refused 275 313766 Z28.21 Obstructiv e sleep apnea syndrome 51205415 G47.33 Continues to benefit from treatment. Followed by Dr. Roberts for pulmonary [id number] Katie Garcia PA-C Main Office [address] [facility] [address] [place] [address] 11/02/2017 15:41:28 11/02/2017 16:36:02 Adult health examination 864441877 Z00.00 Essential hypertension 46042808 I10 stable, cont med as dir Hyperlipidemia 89886638 E78.2 no meds, will cont to monitor - rec increase aerobic activity and decrease red meat intake Obstructiv e sleep apnea syndrome 18064123 G47.33 cont cpap, f/u c sleep med as dir Gastroesop hageal reflux disease 023050691 K21.9 cont ppi as dir Impacted c erumen in right ear 1997126497 635385 H61.21 mild Body mass index 30+ - obesity 896260677 Z68.38 [id number] Katie Garcia PA-C Main Office [address] [facility] [address] [facility] [place] [address] 06/05/2018 14:46:10 06/05/2018 16:12:57 Essential hypertension 79292201 I10 stable, cont med as dir Obesity 107571671 E66.9 Impaired f asting glycemia 265906162 R73.01 A1c 5.2 - offered reassuranc e - no evidence of predm, but still encouraged wt loss d/t obesity and ankit Gastroesop hageal reflux disease 511498073 K21.9 cont ppi as dir Body mass index 30+ - obesity 838324229 Z68.38 Obstructiv e sleep apnea syndrome 39054334 G47.33 cont cpap, f/u c sleep med as dir [id number] Giancarlo Ayon MD Main Office [address] [facility] [address] [place] [address] 11/06/2018 08:34:44 11/06/2018 09:37:36 Adult health examination 224575563 Z00.00 Essential hypertension 64472039 I10 stable, cont med as dir, check bmp Hyperlipidemia 22634410 E78.2 no meds, will cont to monitor - rec increase aerobic activity and decrease red meat intake Obstructiv e sleep apnea syndrome 08614584 G47.33 cont cpap, f/u c sleep med as dir Gastroesop hageal reflux disease 061831584 K21.9 cont ppi as dir, cont med as per GI - needs surveillan ce egd & colon Body mass index 30+ - obesity 813319116 Z68.38 has lost 15 lbs - encouraged pt to continue Impaired f asting glycemia 468327002 R73.01 A1c 5.2 - offered reassuranc e - no evidence of predm, but still encouraged wt loss d/t obesity and ankit Obesity 079770093 E66.9 [id number] Nolan Bee MD Main Office [address] [facility] [address] [place] [address] 06/12/2019 15:31:18 06/12/2019 17:20:06 Essential hypertension 40225447 I10 ekg reviewed c AJC - see PE stable bp, cont med as dir - on BB Gastroesop hageal reflux disease 414013995 K21.9 cont ppi as dir as per GI - needs surveillan ce egd & colon in 2019 Impaired f asting glycemia 002710305 R73.01 A1c 5.0 - offered reassuranc e - no evidence of predm, but still encouraged wt loss d/t obesity and ankit Obstructiv e sleep apnea syndrome 23524982 G47.33 cont cpap, f/u c sleep med as dir Body mass index 30+ - obesity 349084303 Z68.38 Hyperlipidemia 41971052 E78.2 no meds -- 5.19 ascvd risk 6.2% - will cont to monitor - rec increase aerobic activity and decrease red meat intake Obesity 100187276 E66.9 [id number] Giancarlo Ayon MD Main Office [address] [facility] [address] [place] [address] 12/24/2019 15:50:25 12/24/2019 17:09:52 Adult health examination 506590693 Z00.00 Essential hypertension 41568321 I10 stable bp, cont med as dir - on BB Hyperlipidemia 18678101 E78.2 no meds -- 5.19 ascvd risk 6.2% - will cont to monitor - rec increase aerobic activity and decrease red meat intake Gastroesop hageal reflux disease 403758638 K21.9 cont ppi as dir as per GI - needs surveillan ce egd & colon in 2020- pending in a few months Impaired f asting glycemia 593666496 R73.01 A1c 5.0 - offered reassuranc e - no evidence of predm, but still encouraged wt loss d/t obesity and ankit Obstructiv e sleep apnea syndrome 53581853 G47.33 cont cpap, f/u c sleep med as dir Obesity 397794364 E66.9 Body mass index 30+ - obesity 461141601 Z68.38 Varicella vaccination 68 391334 Z23 [id number] Sirisha campbell MD Main Office [address] [place] [address] 02/11/2020 13:02:26 02/11/2020 14:02:00 Contact dermatitis 82857430 L25.9 LIkely contact dermatitis , due to large area would do prednisone taper as it is very itchy. Call if not improving within a few days to a week, sooner if worsening. Infestatio n by Sarcoptes scabiei jocelyn hominis 206781575 B86 Rash bears a close enough resemblanc e to scabies that I want to treat for this x1, pt agreeable. Wash all bedding and clothing in hot soapy water. [id number] Giancarlo Ayon MD Main Office [address] [place] [address] 06/30/2020 15:45:48 07/01/2020 15:13:49 Essential hypertension 89492672 I10 stable bp, cont med as dir - on BB Hyperlipidemia 43190586 E78.2 no meds -- 5.19 - ascvd risk of 6.2% // 11.20 - 9.6% - pt declines statin at this time - will cont to monitor - rec increase aerobic activity and decrease red meat intake Impaired f asting glycemia 161568837 R73.01 A1c 5.0 - offered reassuranc e - no evidence of predm, but still encouraged wt loss d/t obesity and ankit Body mass index 30+ - obesity 926067883 E66.01 Z68.39 [id number] Giancarlo Ayon MD Main Office [address] [place] [address] 10/06/2020 15:31:06 10/07/2020 16:28:11 Essential hypertension 68573518 I10 stable bp, cont med as dir - on BB Hyperlipidemia 11754259 E78.2 no meds -- 5.19 - ascvd risk of 6.2% // 11.20 - 9.6% / 3.21 - 9.0% - pt declines statin at this time - - rec increase aerobic activity and decrease red meat intake, could consider red yeast rice Impaired f asting glycemia 595969863 R73.01 A1c 5.1 - offered reassuranc e - no evidence of predm, but still encouraged wt loss d/t obesity and ankit [id number] Nolan Bee MD Main Office [address] [address] [place] [address] 12/29/2020 15:29:31 12/29/2020 17:00:48 Adult health examination 384718591 Z00.00 Essential hypertension 47202867 I10 Hyperlipidemia 30241281 E78.5 Tinea pedis 3009971 B35. 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 Followed by Dr. Roberts for pulmonary [id number] Sirisha campbell MD Main Office [address] [address] [place] [address] 04/14/2021 10:34:49 04/14/2021 11:45:55 Essential hypertension 65123777 I10 pulse running low, pt with orthostati c symptoms and orthostati c BP drop in ER, lower atenolol from 100mg to 75mg, in a few days restart norvasc 5mg check labs in 4 weeks Orthostati c hypotension 79776025 I95.1 see above and hydrate Anemia due to unknown mechanism 72795996 D64.9 hgb very minimally decreased in ER with nl Ht, recheck in 4 weeks. Vertigo 430935979 R42 resolved [id number] Giancarlo Ayon MD Main Office [address] [facility] [address] [place] [address] 05/13/2021 15:29:28 05/13/2021 16:28:12 Essential hypertension 36434430 I10 stable bp, cont med as dir -- x HR still a little low - so decrease BB from 75mg to 50mg Needs infl uenza immunization 262093736 Z23 Serum ferr itin above reference range 996943402 R77.8 pending HH panel, no FH HH Hyperlipidemia 47718852 E78.2 cont statin as dir [id number] Giancarlo Ayon MD Main Office [address] [address] [place] [address] 07/09/2021 15:40:12 07/09/2021 16:59:58 Essential hypertension 12225076 I10 stable bp, cont meds as dir Hyperlipidemia 15058340 E78.2 ldl sig lower - cont statin as dir Gastroesop hageal reflux disease 633759899 K21.9 cont ppi as dir as per GI Hemochromatosis 85145898 6 E83.119 pending hem/onc eval in 2. [id number] Giancarlo Ayon MD Main Office [address] [place] [address] 08/31/2021 11:24:12 08/31/2021 12:26:48 Dizziness 482505064 R42 new onset yesterday - believe d/t orthostasi s, herman c hr in the 50s --- advised pt to stop BB, cont to stay hydrated, and switch bp/statin combo to pm doubt vertigo - no h/o such, and curr feels fine, able to move head fine c no dizziness f/u 1-2 wks, sooner if dizziness returns or other cardiac sxs appear Essential hypertension 23802384 I10 stable bp, change meds as dir above/belo w Hyperlipidemia 54675514 E78.2 ldl sig lower - cont statin as dir Hemochromatosis 38544326 6 E83.119 stable, cont f/u c hem/onc [id number] Giancarlo Ayon MD Main Office [address] [address] [place] [address] 10/07/2021 15:36:46 10/07/2021 16:05:27 Essential hypertension 40953325 I10 stable bp - cont med as dir Dizziness 303257986 R42 resolved [id number] Giancarlo Ayon MD Main Office [address] [place] [address] 02/15/2022 10:17:07 02/15/2022 11:34:54 Adult health examination 507192039 Z00.00 Essential hypertension 78461016 I10 stable bp - cont med as dir Impaired f asting glycemia 082822879 R73.01 A1c 5.1 - offered reassuranc e - no evidence of predm, but still encouraged wt loss d/t obesity and ankit Obstructiv e sleep apnea syndrome 55444073 G47.33 cont cpap, f/u c sleep med as dir Hyperlipidemia 85459434 E78.2 ldl sig lower - cont statin as dir Hemochromatosis 25600378 6 E83.119 stable, cont f/u c hem/onc - next in 1.23 Eczema 99509328 L30.9 seen by derm - cont creams as dir Gastroesop hageal reflux disease 598469014 K21.9 cont ppi as dir as per GI - no evidence of bashir's 2.21 egd Body mass index 30+ - obesity 426532145 E66.01 Z68.38 [id number] Giancarlo Ayon MD Main Office [address] [place] [address] 08/19/2022 15:37:22 08/20/2022 09:56:46 Gastroesophageal reflux disease 522342643 K21.9 cont ppi as dir as per GI - no evidence of bashir's 2.21 egd Essential hypertension 66880831 I10 stable bp & cr - cont med as dir Hemochromatosis 97469357 6 E83.119 had recent liver mri & echo / pending cardiac mri, cont f/u c hem/onc check labs c cc: hem/onc Body mass index 30+ - obesity 684129844 E66.01 Z68.39 Impaired f asting glycemia 928796061 R73.01 A1c 5.1 - offered reassuranc e - no evidence of predm, but still encouraged wt loss d/t obesity and ankit Hyperlipidemia 10924098 E78.2 ldl sig lower - cont statin as dir [id number] Jonn Edmond MD Main Office [address] [address] [place] [address] 02/03/2023 10:51:54 02/03/2023 11:44:26 Low back pain 231918211 M54.50 Muscular pain. Will take ibuprofen 800 mg tid for the next couple of days and a muscle relaxant. [id number] Giancarlo Ayon MD Main Office [address] [address] [place] [address] 02/23/2023 14:49:03 02/23/2023 16:15:42 Adult health examination 013472652 Z00.00 Obstructiv e sleep apnea syndrome 01123929 G47.33 cont cpap, f/u c sleep med as dir Hemochromatosis 04517126 6 E83.119 had recent liver mri & echo / pending cardiac mri, cont f/u c hem/onc 8.23 - stable, cont phlebotomy monthly, next ov c hem/onc 10.23 Hyperlipidemia 51072504 E78.2 ldl sig lower - cont statin as dir Essential hypertension 45200893 I10 bp elevated - cont med as dir, will cont to monitor at derm next week and at phlebotomy - let me know if cont to trend up, f/u 1 month for recheck - may need add'l med Gastroesop hageal reflux disease 314354324 K21.9 cont ppi as dir as per GI - no evidence of bashir's 2.21 egd Impaired f asting glycemia 951946328 R73.01 A1c 5.2 - offered reassuranc e - no evidence of predm, but still encouraged wt loss d/t obesity and ankit History of polyp of colon 735137457 Z86.010 next in 5.27 Body mass index 30+ - obesity 507361077 E66.01 Z68.39 Eczema 29389159 L30.9 seen by derm - cont creams as dir [id number] Giancarlo Ayon MD Main Office [address] [address] [place] [address] 03/24/2023 15:26:07 03/24/2023 16:38:16 Essential hypertension 26445455 I10 bp elevated - cont med as [...] rev possible SEs Gastroesop hageal reflux disease 701502617 K21.9 cont ppi as dir as per GI - no evidence of bashir's 2.21 egdpt requested refill - rx printed so it could be sent to [facility] Hyperlipidemia 24811570 E78.2 ldl sig lower - cont statin as dir, pending recheck lipids [id number] Giancarlo Ayon MD Main Office [address] [facility] [address] [place] [address] 09/28/2023 15:36:46 09/28/2023 17:01:55 Essential hypertension 65051030 I10 bp elevated - cont med as [...] cr stable, cont meds as dir Hyperlipidemia 73308429 E78.2 ldl ~ stable - cont statin as dir Gastroesop hageal reflux disease 739105169 K21.9 cont ppi as dir as per GI - no evidence of bashir's 2.21 egdpt requested refill - rx printed so it could be sent to [facility] Hemochromatosis 71548291 6 E83.119 had recent liver mri & echo / pending cardiac mri, cont f/u c hem/onc 3.24 - stable, cont phlebotomy monthly, next ov c hem/onc 4.24 [id number] Giancarlo Ayon MD Main Office [address] [facility] [address] [place] [address] 03/05/2024 08:25:30 03/05/2024 09:41:27 Adult health examination 692062863 Z00.00 colon utd Hemochromatosis 27366054 6 E83.119 had recent liver mri & echo / pending cardiac mri, cont f/u c hem/onc 8.24 - stable, cont phlebotomy monthly, cont c hem/onc q 6 months Hyperlipidemia 87484553 E78.2 ldl ~ stable - cont statin as dir History of polyp of colon 689575414 Z86.010 next in 5.27 Obstructiv e sleep apnea syndrome 47346440 G47.33 cont cpap, f/u c sleep med as dir Gastroesop hageal reflux disease 662746804 K21.9 cont ppi as dir as per GI - no evidence of bashir's 2.21 egdpt requested refill - rx printed so it could be sent to [facility] 8.24 - stable Essential hypertension 06977351 I10 bp elevated - cont med as [...] meds as dir Impaired f asting glycemia 777162673 R73.01 A1c 5.3 - offered reassuranc e - no evidence of predm, but still encouraged wt loss d/t obesity and ankit Nocturia 951987688 R35.1 Body mass index 30+ - obesity 766962757 E66.01 Z68.38 [id number] Giancarlo Ayon MD Main Office [address] [facility] [address] [place] [address] 07/11/2024 11:14:55 07/11/2024 12:40:39 Fever 368004064 R50.9 offered re-assuran ce both covid and flu testing normal Acute sinusitis 31822525 J01.90 rec mucinex, ns spray, warm washcloth side of neck prnrecomme nd probiotics while on abx Deviated nasal septum 12 4099557 J34.2 [id number] Giancarlo Ayon MD Main Office [address] [facility] [address] [place] [address] 09/05/2024 15:45:40 09/05/2024 16:44:38 Hyperlipidemia 72600757 E78.2 ldl ~ stable - cont statin as dir Essential hypertension 95348888 I10 bp elevated - cont med as [...] meds as dir Deviated nasal septum 12 8136312 J34.2 pending see ent 6.25cont ns spray, steam Hemochromatosis 17938484 6 E83.119 had recent liver mri & echo / pending cardiac mri, cont f/u c hem/onc 2.25 - stable, cont phlebotomy monthly, cont c hem/onc q 6 months Impaired f asting glycemia 810120654 R73.01 A1c 5.3 - offered reassuranc e - no evidence of predm, but still encouraged wt loss d/t obesity and ankit Heart murmur 15870281 R0 1.1 Health Concerns Section Related Observation LastModified by Organization Detai ls LastModified Time None Recorded Concern Status LastModified by Organization Details LastModified Time None Recorded Advance Directives Directive Y: HCP Payers Encounter Date Sequence Insurance Name Policy Number Policy Solares Covered Member ID Solares Member ID Guarantor Name 03/24/2023 1 [place] [employer] [place] [id number] Naveen J Vadnais [id number] Naveen Vadnais 09/28/2023 1 [place] [employer] [place] [id number] Naveen J Vadnais [id number] Naveen Vadnais 03/05/2024 1 [place] [id number] Naveen J Vadnais [id number] Naveen Vadnais 07/11/2024 1 [place] [employer] [place] [id number] Naveen J Vadnais [id number] Naveen Vadnais 09/05/2024 1 [facility] [id number] Naveen Mayen [id number] Naveen Camposlindsaymorro Notes Date Note Type Note Provider Name and Address Organization Details Recorded Time 03/24/2023 text/html Hypertension F/UReported bypatient.Associated Symptoms:no dizziness; no lightheadedness; no chest pain; no shortness of breath; no palpitations; no edema; no calf pain with exertion Lifestyle:regular exercise;high salt intake Medications:taking medications as directed; no side effects from medication Katie Garcia PA-C [address] [address], [place], [address], [facility] 03/24/2023 17:02:32 09/28/2023 text/html Hypertension F/UReported bypatient.Associated Symptoms:no dizziness; no lightheadedness; no chest pain; no shortness of breath; no palpitations; no edema; no calf pain with exertion Lifestyle:regular exercise; limiting/avoiding salt Medications:taking medications as directed; no side effects from medication Katie Garcia PA-C [address] [address], [place], [address], [facility] 09/28/2023 17:20:55 03/05/2024 text/html here for annual pe. Katie Garcia PA-C [address] [address], [place], [address], [facility] 03/05/2024 09:39:37 07/11/2024 text/html Patient reports yesterday [...] recent labs - nl Katie Garcia PA-C [address] [address], [place], [address], [facility] 07/11/2024 13:17:05 09/05/2024 text/html Hypertension F/UReported bypatient.Associated Symptoms:no dizziness; no lightheadedness; no chest pain; no shortness of breath; no palpitations; no edema; no calf pain with exertion Lifestyle:regular exercise; limiting/avoiding salt Medications:taking medications as directed; no side effects from medication Katie Garcia PA-C [address] [address], [place], [address], [facility] 09/05/2024 20:38:55
== END 2024-11-30 10:02 | disposition home or self-care (01) ==
LOC: HO.BBR 10:01
PROVIDERS: Visit Provider Hospitalist
DX: Z13.89 Encounter for screening for other disorder (principal)

== ENCOUNTER 2025-02-11 10:02 | Outpatient (REF) | payer BC, SELFPAY ==
--- OUTSIDE RECORDS SUMMARY | 2025-02-11 11:00 | XMS_ITS | Data Portability ---
Author Organization [place] - [facility], Allergy Address [address] [address] Care Team Providers Care Thread Weaver Name Role Phone KATIE GARCIA Primary Care Provider Assessment Encounter Date Assessment Date Assessment LastModified by Organization Details LastModified Time 01/14/2025 01/14/2025 Patient with hemochromatosis , hypertension, elevated lipids and obstructive sleep apnea on CPAP seen for lifelong nasal congestion and obstruction right side. Examination shows marked septal deviation to the right side. He does note some mucus in the morning after using his CPAP. Overall though he has minimal symptoms. 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 At this point he is relatively asymptomatic and I would hold off on any surgery as this has been going on his entire life. Certainly if things change we can reevaluate things ivon Not available 01/14/2025 14:37:14 Plan of Treatment Reminders Order Date Submit Date Provider Last Modified By Organization Details Last Modified Time Details Appointments None record ed. Lab None record ed. Referral None record ed. Procedures None record ed. Surgeries None record ed. Imaging None record ed. Medication Orders None record ed. Patient TargetsNo targets recorded. Patient InstructionsNo instructions recorded. Reason for Referral None Reported. Problems Name Problem SNOMED Code Status Onset Date Resolution Date Notes Provider Name and Address Organization Details Recorded Time Deviated nasal septum 382853224 Active 2024 DANIELA MAGANA MD [address] [facility] [address], [address] [place] - [facility] 14:24:35 Obstructive sleep apnea syndrome 86682130 Active 2024 DANIELA MAGANA MD [address] [address], [place], [address], [facility] - [facility] 14:24:38 Hemochromatosi s 234803595 Active 2024 DANIELA MAGANA MD 100 [facility] [address], [place], [address], [facility] - [facility] 14:24:48 Problem Notes None recorded. Medical Equipment None Reported. Allergies No known drug allergies Medications Name Sig Start Date Stop Date Status Note LastModified by Organization Details LastModified Time triamcinolo ne acetonide 0.1 % topical cream APPLY TO ARMS, LEGS, TRUNK TWICE A DAY NEEDED FOR FLARES, DECREASE SYMPTOMS IMPROVE 01/14 completed Not Available Not Available Not Available cephalexin 500 mg capsule TAKE 1 CAPSULE BY MOUTH THREE TIMES A DAY 01/14 completed Not Available Not Available Not Available tacrolimus 0.1 % topical ointment APPLY TO FOOT TWICE A DAY NEEDED FOR FLARES, ALTERNATE WITH TOPICAL STEROIDS 01/14 completed Not Available Not Available Not Available lisinopril 5 mg tablet TAKE 1 TABLET BY MOUTH EVERY DAY active Not Available Not Available No t Available clobetasol 0.05 % topical ointment PLEASE SEE ATTACHED FOR DETAILED DIRECTION S 01/14 completed Not Available Not Available Not Available amoxicillin 875 mg-potassiu m clavulanate 125 mg tablet TAKE 1 TABLET BY MOUTH EVERY 12 HOURS FOR 10 DAYS 01/14 completed Not Available Not Available Not Available lansoprazol e 30 mg delayed release,dis integrating tablet Place 1 tablet every day by transling ual route. active Not Available Not Available No t Available amlodipine 5 mg-atorvast atin 20 mg tablet TAKE 1 TABLET BY MOUTH EVERY DAY DIRECTED active Not Available Not Available No t Available Dupixent 300 mg/2 mL subcutaneou s pen injector Inject by subcutane ous route. active Not Available Not Available No t Available Vitals Date Recorded Body height Body mass index (BMI) Body weight Provider Name and Address Organization Details Last Updated DateTime 01/14/2025 198.12 cm 37.6 kg/m2 745956.52 g Radha Pelaez [place] - [facility] 01/14/2025 13:53:00 Social History None recorded. Functional Status None recorded. Mental Status None recorded. Family History Nothing Reported. Medical History Condition Response Diabetes Y Bleeding Disorder Hyperlipidemia Y Cancer N Hypertension Y Past Encounters Encounter ID Performer Location Encounter Start Date Encounter Closed Date Diagnosis/Indication Diagnosis SNOMED-CT Code Diagnosis ICD10 Code Diagnosis Note [id number] DANIELA HOLLIS MD [facility] [address] [address] 01/14/2025 13:20:21 01/14/2025 14:39:06 Deviated nasal septum 799765833 J34.2 Obstructiv e sleep apnea syndrome 20569486 G47.33 Hemochromatosis 34696245 6 E83.118 Health Concerns Section Related Observation LastModified by Organization Detai ls LastModified Time None Recorded Concern Status LastModified by Organization Details LastModified Time None Recorded Advance Directives Directive None Recorded Payers Insurance Date Sequence Insurance Name Policy Number Policy Solares Covered Member ID Solares Member ID Guarantor Name 01/14/2025 1 [facility] ([facility] [place] [id number] Naveen Mayen [id number] Naveen Mayen Notes Date Note Type Note Provider Name and Address Organization Details Recorded Time 01/14/2025 text/html Patient with hemochromatosis, hypertension, elevated lipids and obstructive sleep apnea on CPAP seen for lifelong nasal congestion and obstruction right side. NOSE=15SNOT-22=12 DANIELA THACKER MD [address] [place] [address], [address], [facility] - [facility] 01/14/2025 16:21:21
== END 2025-02-11 10:03 | disposition home or self-care (01) ==
LOC: HO.BBR 10:02
PROVIDERS: Visit Provider Hospitalist
DX: Z13.89 Encounter for screening for other disorder (principal)

== ENCOUNTER 2025-04-12 08:00 | Outpatient (REF) | payer BC, SELFPAY | END 2025-04-12 08:01 | disposition home or self-care (01) | LOC: HO.BBR 08:00 | PROVIDERS: Visit Provider Hospitalist | DX: Z13.89 Encounter for screening for other disorder (principal) ==

== ENCOUNTER 2025-06-07 08:01 | Outpatient (REF) | payer BC, SELFPAY ==
--- OUTSIDE RECORDS SUMMARY | 2025-06-07 08:03 | XMS_ITS | Data Portability ---
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 At this point he is relatively asymptomatic [...] Organization Details Recorded Time Deviated nasal septum 598468925 Active 2024 DANIELA MAGANA MD [address], [address] [place] - [facility] 14:24:35 Obstructive sleep apnea syndrome 67985918 Active 2024 DANIELA MAGANA MD 100 [facility] [address], [place], [address], [facility] - [facility] 14:24:38 Hemochromatosi s 347987116 Active 2024 DANIELA MAGANA MD [address] [facility] [address], [place], [address], [facility] - [facility] 14:24:48 Problem Notes None recorded. Medical [...] Updated DateTime 01/14/2025 198.12 cm 37.6 kg/m2 023443.52 g Radha Benigno [place] - [facility] 01/14/2025 13:53:00 Social History None recorded. Functional Status None recorded. Mental Status None recorded. Family History Nothing Reported. Medical History Condition Response Diabetes Y Bleeding Disorder Hyperlipidemia Y Cancer N Hypertension Y Past Encounters Encounter ID Performer Location Encounter Start Date Encounter Closed Date Diagnosis/Indication Diagnosis SNOMED-CT Code Diagnosis ICD10 Code Diagnosis IMO Codes Diagnosis Note [id number] DANIELA HOLLIS MD [facility] [address] [address] 01/14/2025 13:20:21 01/14/2025 14:39:06 Deviated nasal septum 285174246 J34.2 264122 Obstructiv e sleep apnea syndrome 10687870 G47.33 3847211 Hemochromatosis 41373104 6 E83.118 688985 Health Concerns Section Related Observation LastModified by Organization Detai ls LastModified Time None Recorded Concern Status LastModified by Organization Details LastModified Time None Recorded Advance Directives Directive None Recorded Payers Insurance Date Sequence Insurance Name Policy Number Policy Solares Covered Member ID Solares Member ID Guarantor Name 03/05/2025 1 [facility] [place] [place] [id number] Naveen Mayen [id number] Naveen Mayen Notes Date Note Type Note Provider Name and Address Organization Details Recorded Time 01/14/2025 text/html ROS as noted in the HPI Patient with hemochromatosis, hypertension, elevated lipids and obstructive sleep apnea on CPAP seen for lifelong nasal congestion and obstruction right side. NOSE=15SNOT-22=12 DANIELA THACKER MD [address] [place] [address], [address] [place] - [facility] 01/14/2025 16:21:21
--- OUTSIDE RECORDS SUMMARY | 2025-06-07 08:04 | XMS_ITS | Data Portability ---
Author Organization [facility], Main Office Address [address] [place] [address] [place] [id number] Care Team Providers Care Art Gilder Name Role Phone MODE GARCIA Primary Care Provider KATINA ROBERTS Global Director Air And Climate Change REINALDO SOL Insulation Cupola Operator [facility] (DIV OF HEMATOLOGY ONCOLOGY) Automobile Drivers [employer] [facility] Harness Installer Assessment No assessment recorded. Plan of Treatment Reminders Order Date Submit Date Provider Last Modified By Organization Details Last Modified Time Details Appointments FOLLOW UP 30MIN 2025 04:00P M Mode Garcia PA-C Not available Not available Not available Lab HbA1c (hemog lobin A1c), blood 2024 MIRIAN [facility] (Centralized Electronic Ordering - All Locations), Patient Can Go To The Location Of Their Choice, [id number] 05/24/2025 03:01:12 PSA, total, serum or plasma 2024 025 MIRIAN [facility] (Centralized Electronic Ordering - All Locations), Patient Can Go To The Location Of Their Choice, [id number] 05/24/2025 03:01:13 lipid panel, serum 2024 025 MIRIAN [facility] (Centralized Electronic Ordering - All Locations), Patient Can Go To The Location Of Their Choice, [id number] 05/24/2025 03:01:13 compre hensiv e metabo lic 1998 panel, serum or plasma 2024 025 MIRIAN [facility] (Centralized Electronic Ordering - All Locations), Patient Can Go To The Location Of Their Choice, 05/24/2025 03:01:13 CK (creat ine kinase ), total, serum 2024 MIRIAN [facility] (Centralized Electronic Ordering - All Locations), Patient Can Go To The Location Of Their Choice, 05/24/2025 03:01:13 HbA1c (hemog lobin A1c), blood 2024 025 MIRIAN [facility] (Centralized Electronic Ordering - All Locations), Patient Can Go To The Location Of Their Choice, 10/29/2024 13:11:42 BMP, serum or plasma 2024 025 MIRIAN [facility] (Centralized Electronic Ordering - All Locations), Patient Can Go To The Location Of Their Choice, 10/29/2024 13:11:41 rapid SARS CoV 2 Ag, QL IA, respir atory specim en 2023 pmadden In-Office Order, Internal Use Only DO Not Attach Compendium DO Not Attach Compendium, Do Not Delete/merge, [id number] 07/11/2024 12:04:23 rapid flu (A+B) 2023 024 MIRIAN In-Office Order, Internal Use Only DO Not Attach Compendium DO Not Attach Compendium, Do Not Delete/merge, [id number] 07/11/2024 12:13:24 HbA1c (hemog lobin A1c), blood 2023 024 MIRIAN [facility] (Centralized Electronic Ordering - All Locations), Patient Can Go To The Location Of Their Choice, 07/03/2024 14:06:52 PSA, total, serum or plasma 2023 024 MIRIAN [facility] (Centralized Electronic Ordering - All Locations), Patient Can Go To The Location Of Their Choice, 07/03/2024 14:06:53 lipid panel, serum 2023 024 MIRIAN [facility] (Centralized Electronic Ordering - All Locations), Patient Can Go To The Location Of Their Choice, 07/03/2024 14:06:51 CMP, serum or plasma 2023 024 MIRIAN [facility] (Centralized Electronic Ordering - All Locations), Patient Can Go To The Location Of Their Choice, [id number] 07/03/2024 14:06:50 CBC w/ auto diff 2023 024 MIRIAN [facility] (Centralized Electronic Ordering - All Locations), Patient Can Go To The Location Of Their Choice, [id number] 07/03/2024 14:06:49 Referral nutrit ionist /florian schaffer referr al 2024 025 [email or web address] Not available 03/07/2025 10:06:55 otolar yngolo gist referr al 2023 024 [facility] , [address], [address], [place], [address], 02/06/2025 11:46:23 nutrit micheleist /florian schaffer referr al 2023 024 [email or web address] Not available 03/05/2024 10:02:15 Procedures None record ed. Surgeries None record ed. Imaging US, echoca rdiogr am - please compar e c cardia c mri 3.6.23 2024 025 [facility], [address] , [place], [address], 11/21/2024 10:25:32 Medication Orders amoxic illin 875 mg-pot assium clavul anate 125 mg tablet 2023 025 [id number], [address] [facility], [place], [address], 09/05/2024 16:10:07 lansop razole 30 mg capsul e,renuka yed releas e 2023 024 [email or web address] Not available 09/17/2024 13:44:13 Patient Targets Encounter Date Encounter Id Patient Goals Patient Target Last Modified By Organization Details Last Modified Time 09/28/2023 [id number] FCI goal of Blood Pressure 140 / 90 Not available Not available Not available 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 Pt agrees to follow low fat diet, [...] goal. 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 Pt advised and agrees to eat a [...] as needed to reflect progress toward goal. Pt advised and agrees to work on self-monitoring behaviors; begin an appropriate diet for weight loss (such as a low carbohydrate diet), to do moderate exercise (such as walking) for approximately 150 minutes per week; and to identify desirable and timely rewards that will reinforce achievement of specific weight loss goals. 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 Pt agrees to follow low fat diet, [...] toward goal. 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 Pt agrees to follow low fat diet, [...] as needed to reflect progress toward goal. Pt advised and agrees to work on self-monitoring behaviors; begin an appropriate diet for weight loss (such as a low carbohydrate diet), to do moderate exercise (such as walking) for approximately 150 minutes per week; and to identify desirable and timely rewards that will reinforce achievement of specific weight loss goals. pmadden Not available 03/06/2025 09:15:41 Patient Instructions Encounter Date Encounter Id Patient Instructions Last Modified By Organization Details Last Modified Time 09/28/2023 [id number] Medications (OTC , herbal therapies, supplements) reviewed and reconciled with patient and or caregiver, including potential side effects, drug interactions, instructions, and the consequences of not taking medication. Reviewed potential barriers to medication adherence, such as side effects from medication or cost of medication. pmadden Not available 09/28/2023 17:20:36 03/05/2024 [id number] Prostate Cancer Screening pmadden Not available 03/05/2024 09:29:40 Well Visit 50 to 65: Care Instructions pmadden Not available 03/05/2024 09:29:41 Starting a Weight-Loss Plan: Care Instructions pmadden Not available 03/05/2024 09:29:41 Nutrition Referral [...] medication. pmadden Not available 03/05/2024 09:29:04 07/11/2024 [id number] Acute Sinusitis: Care Instructions pmadden Not available 07/11/2024 12:37:21 saline nasal washes: care instructions pmadden Not available 07/11/2024 12:37:21 eustachian tube problems: care instructions pmadden Not available 07/11/2024 12:37:21 Follow up if no improvement or if symptoms worsen. pmadden Not available 07/11/2024 13:16:38 09/05/2024 [id number] Medications (OTC , herbal therapies, supplements) reviewed and reconciled with patient and or caregiver, including potential side effects, drug interactions, instructions, and the consequences of not taking medication. Reviewed potential barriers to medication adherence, such as side effects from medication or cost of medication. pmadden Not available 09/05/2024 16:33:36 03/06/2025 [id number] Prostate Cancer Screening pmadden Not available 03/06/2025 09:16:32 Well Visit 50 to 65: Care Instructions pmadden Not available 03/06/2025 09:16:32 Starting a Weight-Loss Plan: Care Instructions pmadden Not available 03/06/2025 09:16:32 Nutrition Referral and Weight Management Follow-up Information pmadden Not available 03/06/2025 09:16:32 Medications (OTC , herbal therapies, supplements) reviewed and reconciled with patient and or caregiver, including potential side effects, drug interactions, instructions, and the consequences of not taking medication. Reviewed potential barriers to medication adherence, such as side effects from medication or cost of medication. 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 Refer ral for Body mass index 30+ - obesity Referring Physician: Mode Garcia, Internal Medicine, Encounter Date: 03/06/2025 Results Created Date Observation Date Name Description Value Unit Range Abnormal Flag Note LastModifiedBy Organization Detail LastModifiedTime 09/24/1909/24/2023 LIPID PANEL results Mitchelli mihir Order Not Available [facility] (Centralized Electronic Ordering - All Locations) Patient Can Go To The Location Of Their Choice, [id number] 09/24/2023 07:28:25 09/24/19 09/24/2023 COMPR EHENS CINDY METAB OLIC PANL [...] COMPR EHENS CINDY METAB OLIC PANL bilirubin,to catina 0.7 mg/dL (0-1.2 ) Not Available [facility] [...] The Location Of Their Choice, 09/24/2023 09:22:45 09/24/19 24 09/24/2023 LIPID PANEL non HDL cholesterol (calc) 128 mg/dL (<160) Not Available [facility] ([facility] Order[facility] - All Locations) Patient Can Go To The Location Of Their Choice, 09/24/2023 09:22:45 09/24/19 24 09/24/2023 CK,TO CATINA ONLY CK,total only 108 U/L (0-310 ) Not Available [facility] (Centralized Electronic Ordering - All Locations) Patient Can Go To The Location Of Their Choice, 09/24/2023 09:22:46 09/24/19 24 09/24/2023 HEMOG LOBIN A1C hemoglobin A1C 5.3 % (4.0-5 .6) MONIT ORING : In known diabe tic patie nts, hemog lobin A1c targe ts shoul d be discu ssed with healt h care provi carole. DIAGN OSTIC USE: The Ameri can Diabe cat Assoc iatio n (ADA) and the World [facility] (WHO) recom mend [...] of Clini tyler and Appli ed Resea [facility] and Educa tion Volum e 43, Suppl ement 1 Not Available [facility] (Centralized Electronic Ordering - All Locations) Patient Can Go To The Location Of Their Choice, 09/24/2023 10:29:34 07/01/20 24 07/02/2024 CBC WITH DIFFE RENTI AL/PL ATELE T WBC 5.9 x10e3 /uL 3.4-10 .8 normal Not Available [facility] ([facility]) [address] [place], [address], 07/03/2024 14:06:49 07/01/20 24 07/02/2024 CBC WITH DIFFE RENTI AL/PL ATELE T RBC 4.40 x10e6 /uL 4.14-5 .80 normal Not Available [facility] ([facility]) [address] [place], [address], 07/03/2024 14:06:49 07/01/20 24 07/02/2024 CBC WITH DIFFE RENTI AL/PL ATELE T hemoglobin 12.3 g/dL 13.0-1 7.7 below low normal Not Available [facility] ([facility]) [address] [place], [address], 07/03/2024 14:06:49 07/01/20 24 07/02/2024 CBC WITH DIFFE RENTI AL/PL ATELE T hematocrit 38.3 % 37.5-5 1.0 normal Not Available [facility] ([facility]) [address] [place], [address], 07/03/2024 14:06:49 07/01/20 24 07/02/2024 CBC WITH DIFFE RENTI AL/PL ATELE T MCV 87 fL 79-97 normal Not Available [facility] ([facility]) [address] [place], [address], 07/03/2024 14:06:49 07/01/20 24 07/02/2024 CBC WITH DIFFE RENTI AL/PL ATELE T MCH 28.0 pg 26.6-3 3.0 normal Not Available [facility] ([facility]) [address] [place], [address], 07/03/2024 14:06:49 07/01/20 24 07/02/2024 CBC WITH DIFFE RENTI AL/PL ATELE T MCHC 32.1 g/dL 31.5-3 5.7 normal Not Available [facility] ([facility]) [address] [facility], [place], [address], 07/03/2024 14:06:49 07/01/20 24 07/02/2024 CBC WITH DIFFE RENTI AL/PL ATELE T RDW 13.1 % 11.6-1 5.4 Not Available [facility] ([facility]) [address] [facility], [place], [address], 07/03/2024 14:06:49 07/01/20 24 07/02/2024 CBC WITH DIFFE RENTI AL/PL ATELE T platelets 323 x10e3 /uL 150-45 0 normal Not Available [facility] ([facility]) [address] [facility], [place], [address], 07/03/2024 14:06:49 07/01/20 24 07/02/2024 CBC WITH DIFFE RENTI AL/PL ATELE T neutrophils 60 % not estab. normal Not Available [facility] ([facility]) [address] [facility], [place], [address], 07/03/2024 14:06:49 07/01/20 24 07/02/2024 CBC WITH DIFFE RENTI AL/PL ATELE T lymphs 29 % not estab. normal Not Available [facility] ([facility]) [address] [facility], [place], [address], 07/03/2024 14:06:49 07/01/20 24 07/02/2024 CBC WITH DIFFE RENTI AL/PL ATELE T monocytes 5 % not estab. normal Not Available [facility] ([facility]) [address] [facility], [place], [address], 07/03/2024 14:06:49 07/01/20 24 07/02/2024 CBC WITH DIFFE RENTI AL/PL ATELE T eos 4 % not estab. normal Not Available [facility] ([facility]) [address] [facility], [place], [address], 07/03/2024 14:06:49 07/01/20 24 07/02/2024 CBC WITH DIFFE RENTI AL/PL ATELE T basos 1 % not estab. normal Not Available [facility] ([facility]) [address] [facility], [place], [address], 07/03/2024 14:06:49 07/01/20 24 07/02/2024 CBC WITH DIFFE RENTI AL/PL ATELE T immature cells MARKETING OPERATIONS COORDINATOR Not Available [facility] ([facility]) [address] [facility], [place], [address], 07/03/2024 14:06:49 07/01/20 24 07/02/2024 CBC WITH DIFFE RENTI AL/PL ATELE T neutrophils (absolute) 3.6 x10e3 /uL 1.4-7. 0 normal Not Available [facility] ([facility]) [address] [place], [address], 07/03/2024 14:06:49 07/01/20 24 07/02/2024 CBC WITH DIFFE RENTI AL/PL ATELE T lymphs (absolute) 1.7 x10e3 /uL 0.7-3. 1 normal Not Available [facility] ([facility]) [address] [place], [address], 07/03/2024 14:06:49 07/01/20 24 07/02/2024 CBC WITH DIFFE RENTI AL/PL ATELE T monocytes(ab solute) 0.3 x10e3 /uL 0.1-0. 9 normal Not Available [facility] ([facility]) [address] [place], [address], 07/03/2024 14:06:49 07/01/20 24 07/02/2024 CBC WITH DIFFE RENTI AL/PL ATELE T eos (absolute) 0.2 x10e3 /uL 0.0-0. 4 normal Not Available [facility] ([facility]) [address] [facility], [place], [address], 07/03/2024 14:06:49 07/01/20 24 07/02/2024 CBC WITH DIFFE RENTI AL/PL ATELE T baso (absolute) 0.0 x10e3 /uL 0.0-0. 2 normal Not Available [facility] ([facility]) [address] [facility], [place], [address], 07/03/2024 14:06:49 07/01/20 24 07/02/2024 CBC WITH DIFFE RENTI AL/PL ATELE T immature granulocytes 1 % not estab. Not Available [facility] ([facility]) [address] [facility], [place], [address], 07/03/2024 14:06:49 07/01/20 24 07/02/2024 CBC WITH DIFFE RENTI AL/PL ATELE T immature grans (abs) 0.1 x10e3 /uL 0.0-0. 1 Not Available [facility] ([facility]) [address] [facility], [place], [address], 07/03/2024 14:06:49 07/01/20 24 07/02/2024 CBC WITH DIFFE RENTI AL/PL ATELE T NRBC MARKETING OPERATIONS COORDINATOR Not Available [facility] ([facility]) [address] [place], [address], 07/03/2024 14:06:49 07/01/20 24 07/02/2024 CBC WITH DIFFE RENTI AL/PL ATELE T hematology comments: MARKETING OPERATIONS COORDINATOR Not Available [facility] ([facility]) [address] [place], [address], 07/03/2024 14:06:49 07/01/20 24 07/03/2024 COMP. METAB OLIC PANEL (14) glucose 108 mg/dL 70-99 above high normal Not Available [facility] ([facility]) [address] [place], [address], 07/03/2024 14:06:50 07/01/20 24 07/03/2024 COMP. METAB OLIC PANEL (14) BUN 20 mg/dL 6-24 normal Not Available [facility] ([facility]) [address] [place], [address], 07/03/2024 14:06:50 07/01/20 24 07/03/2024 COMP. METAB OLIC PANEL (14) creatinine 1.17 mg/dL 0.76-1 .27 normal Not Available [facility] ([facility]) [address] [place], [address], 07/03/2024 14:06:50 07/01/20 24 07/03/2024 COMP. METAB OLIC PANEL (14) eGFR 72 mL/mi n/1.7 3 >59 normal Not Available [facility] ([facility]) [address] [place], [address], 07/03/2024 14:06:50 07/01/20 24 07/03/2024 COMP. METAB OLIC PANEL (14) BUN/creatini ne ratio 17 9-20 normal Not Available [facility] ([facility]) [address] [place], [address], 07/03/2024 14:06:50 07/01/20 24 07/03/2024 COMP. METAB OLIC PANEL (14) sodium 140 mmol/ L 134-14 4 normal Not Available [facility] ([facility]) [address] [place], [address], 07/03/2024 14:06:50 07/01/20 24 07/03/2024 COMP. METAB OLIC PANEL (14) potassium 4.6 mmol/ L 3.5-5. 2 normal Not Available [facility] ([facility]) [address] [facility], [place], [address], 07/03/2024 14:06:50 07/01/20 24 07/03/2024 COMP. METAB OLIC PANEL (14) chloride 105 mmol/ L 96-106 normal Not Available [facility] ([facility]) [address] [place], [address], 07/03/2024 14:06:50 07/01/20 24 07/03/2024 COMP. METAB OLIC PANEL (14) carbon dioxide, total 23 mmol/ L 20-29 normal Not Available [facility] ([facility]) [address] [place], [address], 07/03/2024 14:06:50 07/01/20 24 07/03/2024 COMP. METAB OLIC PANEL (14) calcium 9.2 mg/dL 8.7-10 .2 normal Not Available [facility] ([facility]) [address] [place], [address], 07/03/2024 14:06:50 07/01/20 24 07/03/2024 COMP. METAB OLIC PANEL (14) protein, total 6.8 g/dL 6.0-8. 5 normal Not Available [facility] ([facility]) [address] [place], [address], 07/03/2024 14:06:50 07/01/20 24 07/03/2024 COMP. METAB OLIC PANEL (14) albumin 4.0 g/dL 3.8-4. 9 normal Not Available [facility] ([facility]) [address] [place], [address], 07/03/2024 14:06:50 07/01/20 24 07/03/2024 COMP. METAB OLIC PANEL (14) globulin, total 2.8 g/dL 1.5-4. 5 Not Available [facility] ([facility]) [address] [place], [address], 07/03/2024 14:06:50 07/01/20 24 07/03/2024 COMP. METAB OLIC PANEL (14) bilirubin, total 0.3 mg/dL 0.0-1. 2 normal Not Available [facility] ([facility]) [address] [place], [address], 07/03/2024 14:06:50 07/01/20 24 07/03/2024 COMP. METAB OLIC PANEL (14) alkaline phosphatase 103 IU/L 44-121 normal Not Available [facility] ([facility]) [address] [place], [address], 07/03/2024 14:06:50 07/01/20 24 07/03/2024 COMP. METAB OLIC PANEL (14) AST (SGOT) 17 IU/L 0-40 normal Not Available [facility] ([facility]) [address] [place], [address], 07/03/2024 14:06:50 07/01/20 24 07/03/2024 COMP. METAB OLIC PANEL (14) ALT (SGPT) 15 IU/L 0-44 normal Not Available [facility] ([facility]) [address] [facility], [place], [address], 07/03/2024 14:06:50 07/01/20 24 07/03/2024 LIPID PANEL cholesterol, total 142 mg/dL 100-19 9 normal Not Available [facility] ([facility]) [address] [place], [address], 07/03/2024 14:06:51 07/01/20 24 07/03/2024 LIPID PANEL triglyceride s 55 mg/dL 0-149 normal Not Available [facility] ([facility]) [address] [place], [address], 07/03/2024 14:06:51 07/01/20 24 07/03/2024 LIPID PANEL HDL cholesterol 36 mg/dL >39 below low normal Not Available [facility] ([facility]) [address] [facility], [place], [address], 07/03/2024 14:06:51 07/01/20 24 07/03/2024 LIPID PANEL VLDL cholesterol tyler 12 mg/dL 5-40 Not Available [facility] ([facility]) [address] [place], [address], 07/03/2024 14:06:51 07/01/20 24 07/03/2024 LIPID PANEL LDL chol calc ([facility]) 94 mg/dL 0-99 Not Available [facility] ([facility]) [address] [place], [address], 07/03/2024 14:06:51 07/01/20 24 07/03/2024 LIPID PANEL LDL calc comment: MARKETING OPERATIONS COORDINATOR Not Available [facility] ([facility]) [address] [facility], [place], [address], 07/03/2024 14:06:51 07/01/20 24 07/03/2024 HEMOG LOBIN A1C hemoglobin A1C 5.3 % 4.8-5. 6 normal Predi abete s: 5.7 - 6.4 Diabe cat: >6.4 Glyce ivet contr ol for adult s with diabe cat: <7.0 Not Available [facility] ([facility]) [address] [facility], [place], [address], 07/03/2024 14:06:52 07/01/20 24 07/03/2024 PROST ATE-S [...] kits canno t be used inter nicholas earachael . Resul ts canno t be inter prete d as absol garth evide nce of the prese nce or [facility]en [facility]. Not Available [facility] ([facility]) [address] [facility], [place], [address], 07/03/2024 14:06:53 07/11/20 24 07/11/2024 rapid flu (A+B) Flu A negati ve Not Available In-Office Order Internal Use Only DO Not Attach Compendium DO Not Attach Compendium, Do Not Delete/merge, [id number] 07/11/2024 11:40:25 07/11/20 24 07/11/2024 rapid flu (A+B) Flu B negati ve Not Available In-Office Order Internal Use Only DO Not Attach Compendium DO Not Attach Compendium, Do Not Delete/merge, [id number] 07/11/2024 11:40:25 07/11/20 24 07/11/2024 rapid SARS CoV 2 Ag, QL IA, respi rator y speci men RAPID SARS COV 2 negati ve Not Available In-Office Order Internal Use Only DO Not Attach Compendium DO Not Attach Compendium, Do Not Delete/merge, [id number] 07/11/2024 11:40:03 10/28/19 25 10/28/2024 BASIC METAB OLIC PANEL (8) glucose 115 mg/dL 70-99 above high normal Not Available [facility] ([facility]) [address] [facility], [place], [address], 10/29/2024 13:11:41 10/28/19 25 10/28/2024 BASIC METAB OLIC PANEL (8) BUN 24 mg/dL 6-24 normal Not Available [facility] ([facility]) [address] [facility], [place], [address], 10/29/2024 13:11:41 10/28/19 25 10/28/2024 BASIC METAB OLIC PANEL (8) creatinine 1.09 mg/dL 0.76-1 .27 normal Not Available [facility] ([facility]) [address] [place], [address], 10/29/2024 13:11:41 10/28/19 25 10/28/2024 BASIC METAB OLIC PANEL (8) eGFR 78 mL/mi n/1.7 3 >59 normal Not Available [facility] ([facility]) [address] [place], [address], 10/29/2024 13:11:41 10/28/19 25 10/28/2024 BASIC METAB OLIC PANEL (8) BUN/creatini ne ratio 22 9-20 above high normal Not Available [facility] ([facility]) [address] [place], [address], 10/29/2024 13:11:41 10/28/19 25 10/28/2024 BASIC METAB OLIC PANEL (8) sodium 146 mmol/ L 134-14 4 above high normal Not Available [facility] ([facility]) [address] [place], [address], 10/29/2024 13:11:41 10/28/19 25 10/28/2024 BASIC METAB OLIC PANEL (8) potassium 4.9 mmol/ L 3.5-5. 2 normal Not Available [facility] ([facility]) [address] [place], [address], 10/29/2024 13:11:41 10/28/19 25 10/28/2024 BASIC METAB OLIC PANEL (8) chloride 110 mmol/ L 96-106 above high normal Not Available [facility] ([facility]) [address] [place], [address], 10/29/2024 13:11:41 10/28/19 25 10/28/2024 BASIC METAB OLIC PANEL (8) carbon dioxide, total 22 mmol/ L 20-29 normal Not Available [facility] ([facility]) [address] [facility], [place], [address], 10/29/2024 13:11:41 10/28/19 25 10/28/2024 BASIC METAB OLIC PANEL (8) calcium 9.6 mg/dL 8.7-10 .2 normal Not Available [facility] ([facility]) [address] [facility], [place], [address], 10/29/2024 13:11:41 10/28/19 25 10/28/2024 HEMOG LOBIN A1C hemoglobin A1C 5.2 % 4.8-5. 6 normal Predi abete s: 5.7 - 6.4 Diabe cat: >6.4 Glyce ivet contr ol for adult s with diabe cat: <7.0 Not Available [facility] ([facility]) [address] [facility], [place], [address], 10/29/2024 13:11:42 09/07/19 25 09/27/2022 MRI, heart funct ion and morph ology , w/wo contr ast No observ ation record ed. pmadden Not Available 2024 09:05:03 01/15/20 25 01/10/2025 , echoc ardio gram No observ ation record ed. [facility] [address] [place], [address], 03/06/2025 09:05:03 Result Notes None recorded. Problems Name Problem SNOMED Code Status Onset Date Resolution Date Notes Provider Name and Address Organization Details Recorded Time Body mass index 30+ - obesity 010907669 Completed 06/13/2019 Removal Reason: dx changed Adela orantes [facility] 9 15:51:20 Tinea pedis 6230726 Active Pamela orantes [facility] [place] 6 14:59:31 Allergic rhinitis 68382256 Active Pamela orantes [place] - [facility] 6 14:59:31 Administ ration of bacteria l and viral vaccine Completed 200802/12/2014 RECORDED 04/14/20 09 9:17AM BY SAIDA LOVE MA, OFFICE VISIT Pamela orantes, [facility] 6 14:59:31 Administ ration of bacteria l and viral vaccine Completed 200803/04/2014 RECORDED 04/14/20 09 9:17AM BY SAIDA LOVE MA, OFFICE VISIT Pamela orantes, [facility] 6 14:59:31 Influenz a vaccine needed 81526118121 06 Completed 201002/12/2014 DATE: 08/18/19 11; RECORDED 02/29/20 12 4:20PM BY SAIDA LOVE MA, ANNOTATI ON/ADDEN DUM Pamela Musa null, [facility] 6 14:59:31 Influenz a vaccine needed 59424034561 06 Completed 201003/04/2014 DATE: 08/18/19 11; RECORDED 02/29/20 12 4:20PM BY SAIDA LOVE MA, ANNOTATI ON/ADDEN DUM Pamela Musa null, [facility] 6 14:59:31 Conjunct ivitis 1344523 Completed 201102/12/2014 RECORDED 02/29/20 12 4:20PM BY SAIDA LOVE MA, ANNOTATI ON/ADDEN DUM Pamela Musa null, [facility] 6 14:59:31 Malaise and fatigue 781596765 Completed 201102/12/2014 RECORDED 02/29/20 12 4:20PM BY SAIDA LOVE MA, ANNOTATI ON/ADDEN DUM Pamela Musa null, [facility] 6 14:59:31 Referred otalgia 05663400 Completed 201102/12/2014 RECORDED 02/29/20 12 4:20PM BY SAIDA LOVE MA, ANNOTATI ON/ADDEN DUM Pamela Musa null, [facility] 6 14:59:31 Screenin g for malignan t neoplasm of colon Completed 201102/12/2014 RECORDED 02/29/20 12 4:20PM BY SAIDA LOVE MA, ANNOTATI ON/ADDEN DUM Pamela Musa null, [facility] 6 14:59:31 Conjunct ivitis 3190340 Completed 201103/04/2014 RECORDED 02/29/20 12 4:20PM BY SAIDA LOVE MA, ANNOTATI ON/ADDEN DUM Pamela Musa null, [facility] 6 14:59:31 Malaise and fatigue 656155680 Completed 201103/04/2014 RECORDED 02/29/20 12 4:20PM BY SAIDA LOVE MA, ANNOTATI ON/ADDEN DUM Pamela Musa null, [facility] 6 14:59:31 Referred otalgia 44353036 Completed 201103/04/2014 RECORDED 02/29/20 12 4:20PM BY SAIDA LOVE MA, ANNOTATI ON/ADDEN DUM Pamela Musa null, [facility] 6 14:59:31 Screenin g for malignan t neoplasm of colon Completed 201103/04/2014 RECORDED 02/29/20 12 4:20PM BY SAIDA LOVE MA, ANNOTATI ON/ADDEN DUM Pamela Musa null, [facility] 6 14:59:31 Adult health examinat ion Completed 201202/12/2014 RECORDED 05/22/20 13 4:02PM BY NATASHA OHARA MA, ANNOTATI ON/ADDEN DUM Pamela Musa null, [facility] 6 14:59:31 Gastroes ophageal reflux disease 799871550 Active 2012 STORY: TREATMEN T FAILURE WITH OMEPRAZO LE. STABLE ON PREVACID FARAZ Solorzano, [facility] 6 09:20:40 [facility] hyperten arlin 91288707 Active [address] [facility] 6 14:59:31 Hyperlip idemia 02764290 Active 2012 5.19 - ascvd risk of 6.2% // 11.20 - 9.6% Mode Garcia PA-C [address] [facility] [address], [facility] [place], [address] , [facility] 0 17:04:54 Obstruct cindy sleep apnea syndrome 87410186 Active [address] [facility] 6 14:59:31 Osteoart hritis 083740429 Active [address] [facility] 6 14:59:31 Adult health examinat ion Completed 201203/04/2014 RECORDED 05/22/20 13 4:02PM BY NATASHA OHARA MA, ANNOTATI ON/ADDEN DUM Pamela orantes [facility] 6 14:59:31 Obesity 616754554 Active [address] [facility] 6 14:59:31 Dependen ce on enabling machine or device 117580404 Completed 201304/11/2017 BiPAP machine at bedtime FARAZ Solorzano, [facility] 7 09:36:26 Dependen ce on biphasic positive airway pressure ventilat ion 813047804 Active 2013 bi-PAP machine FARAZ Solorzano, [facility] 7 09:36:48 Serum ferritin above referenc e range 455517036 Completed 202003/05/2024 Mode Garcia PA-C [address] [facility] [address], [place], [address] , [facility] 4 09:24:56 Hemochro matosis 040709819 Active 2020 Mode Garcia PA-C [address] [facility] [address], [place], [address] , [facility] 1 13:13:24 Eczema 20833531 Active 2021 Mode Garcia PA-C [address] [facility] [address], [place], [address] , [facility] 2 11:12:49 History of polyp of colon 151421333 Active 2022 Mode Garcia PA-C [address] [facility] [address], [place], [address] , [facility] 3 15:57:39 Deviated nasal septum 445157081 Active 2024 Mode Garcia PA-C [address] [facility] [address], [place], [address] , [facility] 5 16:19:23 Impaired fasting glycemia 308533951 Active 2024 Mode Garcia PA-C [address] [facility] [address], [place], [address] , [facility] 5 16:24:29 Heart murmur 71157361 Active 2024 Mode Garcia PA-C [address] [facility] [address], [place], [address] , [facility] 5 16:33:00 Problem Notes None recorded. Procedures Surgical History Date Name Laterality Status Provider Name and Address Organization Details Recorded Time 2 Colonoscopy completed Pamela Musa [facility] 01/05/2022 15:11:44 EGD completed Pamela Musa [facility] 09/17/2020 09:36:11 Imaging Results None recorded. [...] DAY NEEDED FOR FLARES, DECREASE SYMPTOMS IMPROVE 03/06 completed Not Available Not Available Not Available doxycycli ne monohydra te 100 mg [...] NEEDED FOR FLARES, ALTERNAT ING WITH STEROID 03/06 completed Not Available Not Available Not Available lansopraz ole 30 mg capsule,d elayed release TAKE ONE CAPSULE BY MOUTH ONCE DAILY BEFORE A MEAL 2024 active Not Available Not Available Not Avai lable nystatin- triamcino lone 100,000 unit/g-0. 1 % topical cream APPLY TOPICALL Y TO THE AFFECTED AREA TWICE DAILY IN THE MORNING AND IN THE EVENING 03/06 completed Not Available Not Available Not Available triamcino lone acetonide 0.025 % topical ointment APPLY TO LEGS AND FEET TWICE DAILY NEEDED FOR FLARES 02/03 completed Not Available Not Available Not Available betametha sone dipropion ate 0.05 % topical cream APPLY TO FEET TWICE A DAY NEEDED 03/06 completed Not Available Not Available Not Available lisinopri l 5 mg tablet TAKE 1 TABLET BY MOUTH EVERY DAY active Not Available Not Available No t Available clobetaso l 0.05 % topical ointment PLEASE SEE ATTACHED FOR DETAILED DIRECTIO NS 03/06 completed Not Available Not Available Not Available fluticaso ne propionat e 50 mcg/actua [...] mg-potass ium clavulana te 125 mg tablet Take 1 tablet every 12 hours by oral route for 10 days. 09/05 completed Not Available Not Available Not Available amlodipin e 5 mg-atorva statin 20 mg tablet TAKE 1 TABLET BY MOUTH EVERY DAY DIRECTED 2024 active Not Available Not Available Not Avai lable omeprazol e DAILY 05/09 completed RECORDED 05/09/20 [...] AREAS TWICE A DAY NEEDED FOR ITCHING 03/06 completed Not Available Not Available Not Available Dupixent 300 mg/2 mL subcutane ous pen injector Inject 2 mL every 2 weeks by subcutan eous route. active Not Available Not Available No t Available Vitals Date Recorded Systolic And Diastolic Provider Name and Address Organization Details Last Updated DateTime 09/05/2024 136/78 mm[Hg] Mode Garcia PA-C [address], [place], [address], [facility] 09/05/2024 16:36:36 Date Recorded Body height Body mass index (BMI) Body weight Heart rate Oxygen saturation Oxygen saturation in Arterial blood by Pulse oximetry Body temperature Systolic And Diastolic Provider Name and Address Organization Details Last Updated DateTime 5 193.04 cm 38.1 kg/m2 493761. 41 g 62 /min 98 % 98 % 98 [degF] 155/83 mm[Hg] Shyanne Green [facility] 5 16:10:56 Date Recorded Body height Body mass index (BMI) Body weight Oxygen saturation Oxygen saturation in Arterial blood by Pulse oximetry Heart rate Body temperature Systolic And Diastolic Provider Name and Address Organization Details Last Updated DateTime 4 193.04 cm 39.1 kg/m2 722131. 95 g 97 % 97 % 73 /min 98.7 [degF] 126/76 mm[Hg] Maryse Garcia MA [facility] 4 15:51:17 Date Recorded Systolic And Diastolic Provider Name and Address Organization Details Last Updated DateTime 03/05/2024 128/78 mm[Hg] Mode Garcia PA-C [address], [place], [address], [facility] 03/05/2024 09:35:52 Date Recorded Body height Body mass index (BMI) Body weight Heart rate Oxygen saturation Oxygen saturation in Arterial blood by Pulse oximetry Body temperature Systolic And Diastolic Provider Name and Address Organization Details Last Updated DateTime 4 193.04 cm 38.2 kg/m2 850295 g 73 /min 98 % 98 % 98.1 [degF] 161/85 mm[Hg] Kari Alfredo MA [facility] 4 08:36:42 Date Recorded Body height Body mass index (BMI) Body weight Heart rate Oxygen saturation Oxygen saturation in Arterial blood by Pulse oximetry Body temperature Systolic And Diastolic Provider Name and Address Organization Details Last Updated DateTime 5 193.04 cm 38.7 kg/m2 916114. 37 g 61 /min 99 % 99 % 98.2 [degF] 129/66 mm[Hg] Saida silva MA [facility] 5 08:49:01 Date Recorded Systolic And Diastolic Provider Name and Address Organization Details Last Updated DateTime 07/11/2024 124/82 mm[Hg] Mode Garcia PA-C [address], [address], [facility] 07/11/2024 12:36:14 Date Recorded Body height Body mass index (BMI) Body weight Heart rate Oxygen saturation Oxygen saturation in Arterial blood by Pulse oximetry Body temperature Systolic And Diastolic Provider Name and Address Organization Details Last Updated DateTime 4 193.04 cm 37.4 kg/m2 591086. 86 g 73 /min 96 % 96 % 99.4 [degF] 167/93 mm[Hg] Shyanne Green MA [facility] 4 11:36:38 Social History Question Answer Notes LastModified by Organizat ion Details LastModified Time Tobacco Smoking Status Never Smoker Saida Jorge MA null, [facility] 04/09/2014 13:57:49 Do You Have An Advance Directive? Yes HCP Information not available 04/10/2015 Is Blood Transfusion Acceptable In An Emergency? Yes Information not available 04/10/2015 What Is Your Level Of Caffeine Consumption? Moderate Coffee Daily, 1-2 Servings Information not available 04/09/2014 How Much Tobacco Do You Chew? None Information not available 04/10/2015 What Type Of Diet Are You Following? SPECIFIC Oatmeal Daily; Low Sodium/low Sugar Information not available 03/06/2025 Which Illicit Or Recreational Drugs Have You Used? None Information not available 04/09/2014 Live Alone Or [...] Individual Who Tested Positive For COVID-19? No Information not available 06/30/2020 Have You Recently Traveled To A COVID-19 High Risk Area Or Gathering In The Last 10 Days? No [email or web address] Information not available 10/06/2020 What Was The Date Of Your Most Recent Tobacco Screening? 03/06/2025 Information not available 03/06/2025 How Many Children Do You Have? 1 [...] To Smoke? No Information not available 04/09/2014 How Much Tobacco Do You Smoke? No Information not available 04/09/2014 Do You Use Sunscreen Routinely? No Information not available 04/10/2015 How Many Years Have You Smoked Tobacco? 0 Information not available 04/10/2015 Sex: Unknown Functional Status Question Answer Note LastModified by Organizat ion Details LastModified Time Do you use any illicit or recreational drugs? No Information not available 03/06/2025 Do you or have you ever used any other forms of tobacco or nicotine? No Information not available 03/06/2025 What is your level of alcohol consumption? Occasional rare; beer Information not available 03/06/2025 Do you or have you ever used smokeless tobacco? Never used smokeless tobacco Information not available 06/12/2019 Are you currently employed? Yes full-time Information not available 04/09/2014 Are you able to walk independently without assistance or assistive devices? [facility] Information not available 02/15/2022 Are you able to care for yourself independently? 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 Never used electronic cigarettes Information not available 06/12/2019 What is your exercise level? Occasional active at work/construc tion Information not available 03/06/2025 Mental Status None recorded. Family History Relationship Description Onset Age of this Age Resolved Age Notes LastModified by Organization Details LastModified Time Mother Essential hypertension [email or web address] Not available 09:15:29 Father Cerebrovascu lar accident [email or web address] Not available 09:15:29 Notes:ADOPTED Medical History Condition Response Acid Reflux (GERD) Y High Cholesterol Y Reflux/GERD Y Hypertension Y Immunizations Vaccine Type Date Status Note Provider Nam mirtha and Address Organization Details Recorded Time Tdap 12/24/19 15 completed Nolan Bee MD [address] [facility] [address], [place], [address], [facility] [place] 04/10/2015 09:16:26 COVID-19 vaccine, vector-nr, rS-Ad26, PF, 0.5 mL 10/27/19 21 completed Maren Donnelly MA null, [facility] [place] 07/09/2021 15:56:36 COVID-19, mRNA, LNP-S, PF, 30 mcg/0.3 mL dose 07/21/20 21 completed Shyanne Green MA null, [facility] 08/31/2021 11:33:32 Influenza, split virus, quadrivalent, PF 04/11/20 17 cancelled patient objection Not Available [facility] 08/11/2019 02:22:07 zoster recombinant 12/24/19 20 cancelled patient objection Mode Garcia PA-C [address] [address], [place], [address], [facility] 12/24/2019 17:04:31 Influenza, split virus, quadrivalent, PF 05/13/20 21 cancelled patient objection Mode Garcia PA-C [address] [address], [place], [address], [facility] 05/13/2021 17:32:30 Tdap 04/14/20 09 completed Not Available [facility] 02/05/2014 14:04:51 Past Encounters Encounter ID Performer Location Encounter Start Date Encounter Closed Date Diagnosis/Indication Diagnosis SNOMED-CT Code Diagnosis ICD10 Code Diagnosis IMO Codes Diagnosis Note [id number] autoEComm erce [address] [facility] [place] [address] 04/26/2006 00:00:00 [id number] autoEComm erce [address] [facility] [place] [address] 02/16/2006 00:00:00 [id number] autoEComm erce [address] [facility] [place] [address] 04/19/2005 00:00:00 [id number] autoEComm erce [address] [facility] [place] [address] 10/18/2006 00:00:00 [id number] autoEComm erce [address] [facility] [place] [address] 04/12/2007 00:00:00 [id number] autoEComm erce [address] [facility] [place] [address] 10/09/2007 00:00:00 [id number] autoEComm erce [address] [facility] [place] [address] 01/08/2008 00:00:00 [id number] autoEComm erce [address] [facility] [place] [address] 09/03/2008 00:00:00 [id number] autoEComm erce [address] [facility] [place] [address] 10/30/2008 00:00:00 [id number] autoEComm erce [address] [facility] [place] [address] 04/14/2009 00:00:00 [id number] autoEComm erce [address] [facility] [place] [address] 11/11/2009 00:00:00 [id number] autoEComm erce [address] [facility] [place] [address] 11/24/2009 00:00:00 [id number] autoEComm erce [address] [facility] [place] [address] 08/18/2010 00:00:00 [id number] autoEComm erce [address] [facility] [place] [address] 02/17/2011 00:00:00 [id number] autoEComm erce [address] [facility] [place] [address] 08/31/2011 00:00:00 [id number] autoEComm erce [address] [facility] [place] [address] 02/29/2012 00:00:00 [id number] autoEComm erce [address] [facility] [address] [place] [address] 11/21/2012 00:00:00 [id number] autoEComm erce [address] [facility] [address] [place] [address] 05/22/2013 00:00:00 [id number] Nolan Bee MD Main Office [address] [address] [place] [address] 04/09/2014 13:43:19 04/09/2014 14:37:31 Essential hypertension 17497949 Hyperlipidemia 58525425 Gastroesop hageal reflux disease 847303580 Adult heal th examination 580892994 Body mass index 30+ - obesity 740810428 Tinea pedis 5548050 [id number] Nolan Bee MD Main Office [address] [address] [place] [address] 10/14/2014 15:31:51 10/14/2014 16:48:28 Essential hypertension 79469686 Gastroesop hageal reflux disease 078030281 Body mass index 30+ - obesity 043162447 [id number] Nolan Bee MD Main Office [address] [address] [place] [address] 04/10/2015 08:53:53 04/10/2015 09:47:10 Adult health examination 174292249 Essential hypertension 65691179 Hyperlipidemia 82156168 Obstructiv e sleep apnea syndrome 98126955 Body mass index 30+ - obesity 174018522 [id number] Nolan Bee MD Main Office [address] [address] [place] [address] 10/16/2015 15:50:17 10/16/2015 16:32:56 Essential hypertension 52641297 I10 Gastroesop hageal reflux disease 785363473 K21.9 Obstructiv e sleep apnea syndrome 07878872 G47.33 Allergic rhinitis 792039 04 J30.9 Body mass index 30+ - obesity 941736296 Z68.37 [id number] Nolan Bee MD Main Office [address] [address] [place] [address] 04/13/2016 09:02:56 04/13/2016 10:00:34 Adult health examination 546680786 Z00.00 Essential hypertension 87694927 I10 Obstructiv e sleep apnea syndrome 10536315 G47.33 Body mass index 30+ - obesity 586347654 Z68.37 Fatigue 80448045 R53.83 [id number] Nolan Bee MD Main Office [address] [facility] [address] [place] [address] 10/12/2016 16:11:42 10/12/2016 17:13:55 Essential hypertension 81496484 I10 Hyperlipidemia 61970037 E78.5 Fatigue 48897514 R53.83 Obstructiv e sleep apnea syndrome 63693538 G47.33 Continues to benefit from treatment. Followed by Dr. Roberts for pulmonary [id number] Nolan Bee MD Main Office [address] [facility] [address] [place] [address] 04/11/2017 09:31:51 04/11/2017 10:22:26 Essential hypertension 08600273 I10 Hyperlipidemia 70148563 E78.5 Immunization refused 275 902519 Z28.21 Obstructiv e sleep apnea syndrome 14532045 G47.33 Continues to benefit from treatment. Followed by Dr. Roberts for pulmonary [id number] Mode Garcia PA-C Main Office [address] [address] 11/02/2017 15:41:28 11/02/2017 16:36:02 Adult health examination 343043537 Z00.00 Essential hypertension 32116160 I10 stable, cont med as dir Hyperlipidemia 08465165 E78.2 no meds, will cont to monitor - rec increase aerobic activity and decrease red meat intake Obstructiv e sleep apnea syndrome 97703423 G47.33 cont cpap, f/u c sleep med as dir Gastroesop hageal reflux disease 995390421 K21.9 cont ppi as dir Impacted c erumen in right ear 9154198917 711582 H61.21 mild Body mass index 30+ - obesity 715446865 Z68.38 [id number] Mode Garcia PA-C Main Office [address] [facility] [address] [place] [address] 06/05/2018 14:46:10 06/05/2018 16:12:57 Essential hypertension 60961430 I10 stable, cont med as dir Obesity 710309841 E66.9 Impaired f asting glycemia 347290238 R73.01 A1c 5.2 - offered reassuranc e - no evidence of predm, but still encouraged wt loss d/t obesity and ankit Gastroesop hageal reflux disease 717758670 K21.9 cont ppi as dir Body mass index 30+ - obesity 874244244 Z68.38 Obstructiv e sleep apnea syndrome 25086096 G47.33 cont cpap, f/u c sleep med as dir [id number] Giancarlo Ayon MD Main Office [address] [facility] [address] [place] [address] 11/06/2018 08:34:44 11/06/2018 09:37:36 Adult health examination 089463681 Z00.00 Essential hypertension 99129662 I10 stable, cont med as dir, check bmp Hyperlipidemia 65758518 E78.2 no meds, will cont to monitor - rec increase aerobic activity and decrease red meat intake Obstructiv e sleep apnea syndrome 31946769 G47.33 cont cpap, f/u c sleep med as dir Gastroesop hageal reflux disease 454903200 K21.9 cont ppi as dir, cont med as per GI - needs surveillan ce egd & colon Body mass index 30+ - obesity 303021532 Z68.38 has lost 15 lbs - encouraged pt to continue Impaired f asting glycemia 661359890 R73.01 A1c 5.2 - offered reassuranc e - no evidence of predm, but still encouraged wt loss d/t obesity and ankit Obesity 927777635 E66.9 [id number] Nolan Bee MD Main Office [address] [facility] [address] [place] [address] 06/12/2019 15:31:18 06/12/2019 17:20:06 Essential hypertension 43720830 I10 ekg reviewed c AJC - see PE stable bp, cont med as dir - on BB Gastroesop hageal reflux disease 752884105 K21.9 cont ppi as dir as per GI - needs surveillan ce egd & colon in 2019 Impaired f asting glycemia 580105221 R73.01 A1c 5.0 - offered reassuranc e - no evidence of predm, but still encouraged wt loss d/t obesity and ankit Obstructiv e sleep apnea syndrome 97760444 G47.33 cont cpap, f/u c sleep med as dir Body mass index 30+ - obesity 908586735 Z68.38 Hyperlipidemia 23901491 E78.2 no meds -- 5.19 ascvd risk 6.2% - will cont to monitor - rec increase aerobic activity and decrease red meat intake Obesity 427601367 E66.9 [id number] Giancarlo Ayon MD Main Office [address] [facility] [address] [facility] [place] [address] 12/24/2019 15:50:25 12/24/2019 17:09:52 Adult health examination 821328186 Z00.00 Essential hypertension 47169112 I10 stable bp, cont med as dir - on BB Hyperlipidemia 52435670 E78.2 no meds -- 5.19 ascvd risk 6.2% - will cont to monitor - rec increase aerobic activity and decrease red meat intake Gastroesop hageal reflux disease 742759231 K21.9 cont ppi as dir as per GI - needs surveillan ce egd & colon in 2019- pending in a few months Impaired f asting glycemia 095893348 R73.01 A1c 5.0 - offered reassuranc e - no evidence of predm, but still encouraged wt loss d/t obesity and ankit Obstructiv e sleep apnea syndrome 92942182 G47.33 cont cpap, f/u c sleep med as dir Obesity 512361988 E66.9 Body mass index 30+ - obesity 496999916 Z68.38 Varicella vaccination 68 598568 Z23 [id number] Sirisha campbell MD Main Office [address] [place] [address] 02/11/2020 13:02:26 02/11/2020 14:02:00 Contact dermatitis 10681510 L25.9 LIkely contact dermatitis , due to large area would do prednisone taper as it is very itchy. Call if not improving within a few days to a week, sooner if worsening. Infestatio n by Sarcoptes scabiei jocelyn hominis 477539048 B86 Rash bears a close enough resemblanc e to scabies that I want to treat for this x1, pt agreeable. Wash all bedding and clothing in hot soapy water. [id number] Giancarlo Ayon MD Main Office [address] [place] [address] 06/30/2020 15:45:48 07/01/2020 15:13:49 Essential hypertension 72070764 I10 stable bp, cont med as dir - on BB Hyperlipidemia 32063477 E78.2 no meds -- 5.19 - ascvd risk of 6.2% // 11.20 - 9.6% - pt declines statin at this time - will cont to monitor - rec increase aerobic activity and decrease red meat intake Impaired f asting glycemia 178684637 R73.01 A1c 5.0 - offered reassuranc e - no evidence of predm, but still encouraged wt loss d/t obesity and ankit Body mass index 30+ - obesity 150850113 E66.01 Z68.39 [id number] Giancarlo Ayon MD Main Office [address] [place] [address] 10/06/2020 15:31:06 10/07/2020 16:28:11 Essential hypertension 68823811 I10 stable bp, cont med as dir - on BB Hyperlipidemia 15991370 E78.2 no meds -- 5.19 - ascvd risk of 6.2% // 11.20 - 9.6% / 3.21 - 9.0% - pt declines statin at this time - - rec increase aerobic activity and decrease red meat intake, could consider red yeast rice Impaired f asting glycemia 352115872 R73.01 A1c 5.1 - offered reassuranc e - no evidence of predm, but still encouraged wt loss d/t obesity and ankit [id number] Nolan Bee MD Main Office [address] [place] [address] 12/29/2020 15:29:31 12/29/2020 17:00:48 Adult health examination 589010639 Z00.00 Essential hypertension 70290689 I10 Hyperlipidemia 41676355 E78.5 Tinea pedis 9376224 B35. 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 Followed by Dr. Roberts for pulmonary [id number] Sirisha campbell MD Main Office [address] [address] [place] [address] 04/14/2021 10:34:49 04/14/2021 11:45:55 Essential hypertension 54949678 I10 pulse running low, pt with orthostati c symptoms and orthostati c BP drop in ER, lower atenolol from 100mg to 75mg, in a few days restart norvasc 5mg check labs in 4 weeks Orthostati c hypotension 04912243 I95.1 see above and hydrate Anemia due to unknown mechanism 23961414 D64.9 hgb very minimally decreased in ER with nl Ht, recheck in 4 weeks. Vertigo 177909673 R42 resolved [id number] Giancarlo Ayon MD Main Office [address] [place] [address] 05/13/2021 15:29:28 05/13/2021 16:28:12 Essential hypertension 19182686 I10 stable bp, cont med as dir -- x HR still a little low - so decrease BB from 75mg to 50mg Needs infl uenza immunization 880167581 Z23 Serum ferr itin above reference range 907580642 R77.8 pending HH panel, no FH HH Hyperlipidemia 24912070 E78.2 cont statin as dir [id number] Giancarlo Ayon MD Main Office [address] [place] [address] 07/09/2021 15:40:12 07/09/2021 16:59:58 Essential hypertension 73455585 I10 stable bp, cont meds as dir Hyperlipidemia 49185080 E78.2 ldl sig lower - cont statin as dir Gastroesop hageal reflux disease 266472550 K21.9 cont ppi as dir as per GI Hemochromatosis 65505139 6 E83.119 pending hem/onc eval in 2. [id number] Giancarlo Ayon MD Main Office [address] [place] [address] 08/31/2021 11:24:12 08/31/2021 12:26:48 Dizziness 190074603 R42 new onset yesterday - believe d/t orthostasi s, herman c hr in the 50s --- advised pt to stop BB, cont to stay hydrated, and switch bp/statin combo to pm doubt vertigo - no h/o such, and curr feels fine, able to move head fine c no dizziness f/u 1-2 wks, sooner if dizziness returns or other cardiac sxs appear Essential hypertension 85980804 I10 stable bp, change meds as dir above/belo w Hyperlipidemia 02631297 E78.2 ldl sig lower - cont statin as dir Hemochromatosis 18109637 6 E83.119 stable, cont f/u c hem/onc [id number] Giancarlo Ayon MD Main Office [address] [facility] [address] [facility] [place] [address] 10/07/2021 15:36:46 10/07/2021 16:05:27 Essential hypertension 58157003 I10 stable bp - cont med as dir Dizziness 825923165 R42 resolved [id number] Giancarlo Ayon MD Main Office [address] [facility] [address] [facility] [place] [address] 02/15/2022 10:17:07 02/15/2022 11:34:54 Adult health examination 186837664 Z00.00 Essential hypertension 43237897 I10 stable bp - cont med as dir Impaired f asting glycemia 818736837 R73.01 A1c 5.1 - offered reassuranc e - no evidence of predm, but still encouraged wt loss d/t obesity and ankit Obstructiv e sleep apnea syndrome 79182878 G47.33 cont cpap, f/u c sleep med as dir Hyperlipidemia 85949165 E78.2 ldl sig lower - cont statin as dir Hemochromatosis 32802881 6 E83.119 stable, cont f/u c hem/onc - next in 1.23 Eczema 92637830 L30.9 seen by derm - cont creams as dir Gastroesop hageal reflux disease 149985727 K21.9 cont ppi as dir as per GI - no evidence of bashir's 2.21 egd Body mass index 30+ - obesity 791848836 E66.01 Z68.38 [id number] Giancarlo Ayon MD Main Office [address] [place] [address] 08/19/2022 15:37:22 08/20/2022 09:56:46 Gastroesophageal reflux disease 675670421 K21.9 cont ppi as dir as per GI - no evidence of bashir's 2.21 egd Essential hypertension 61240103 I10 stable bp & cr - cont med as dir Hemochromatosis 05492644 6 E83.119 had recent liver mri & echo / pending cardiac mri, cont f/u c hem/onc check labs c cc: hem/onc Body mass index 30+ - obesity 806306250 E66.01 Z68.39 Impaired f asting glycemia 641703531 R73.01 A1c 5.1 - offered reassuranc e - no evidence of predm, but still encouraged wt loss d/t obesity and ankit Hyperlipidemia 02399531 E78.2 ldl sig lower - cont statin as dir [id number] Jonn Edmond MD Main Office [address] [place] [address] 02/03/2023 10:51:54 02/03/2023 11:44:26 Low back pain 325985729 M54.50 Muscular pain. Will take ibuprofen 800 mg tid for the next couple of days and a muscle relaxant. [id number] Giancarlo Ayon MD Main Office [address] [place] [address] 02/23/2023 14:49:03 02/23/2023 16:15:42 Adult health examination 038256451 Z00.00 Obstructiv e sleep apnea syndrome 76216074 G47.33 cont cpap, f/u c sleep med as dir Hemochromatosis 61116225 6 E83.119 had recent liver mri & echo / pending cardiac mri, cont f/u c hem/onc 8.23 - stable, cont phlebotomy monthly, next ov c hem/onc 10.23 Hyperlipidemia 89045301 E78.2 ldl sig lower - cont statin as dir Essential hypertension 57684849 I10 bp elevated - cont med as dir, will cont to monitor at derm next week and at phlebotomy - let me know if cont to trend up, f/u 1 month for recheck - may need add'l med Gastroesop hageal reflux disease 328839201 K21.9 cont ppi as dir as per GI - no evidence of bashir's 2.21 egd Impaired f asting glycemia 851005419 R73.01 A1c 5.2 - offered reassuranc e - no evidence of predm, but still encouraged wt loss d/t obesity and ankit History of polyp of colon 602997361 Z86.010 next in 5.27 Body mass index 30+ - obesity 908369824 E66.01 Z68.39 Eczema 76705820 L30.9 seen by derm - cont creams as dir [id number] Giancarlo Ayon MD Main Office [address] [facility] [address] [facility] [place] [address] 03/24/2023 15:26:07 03/24/2023 16:38:16 Essential hypertension 95649170 I10 bp elevated - cont med as [...] rev possible SEs Gastroesop hageal reflux disease 777004849 K21.9 cont ppi as dir as per GI - no evidence of bashir's 2.21 egdpt requested refill - rx printed so it could be sent to [facility] Hyperlipidemia 65201645 E78.2 ldl sig lower - cont statin as dir, pending recheck lipids [id number] Giancarlo Ayon MD Main Office [address] [facility] [address] [place] [address] 09/28/2023 15:36:46 09/28/2023 17:01:55 Essential hypertension 95659139 I10 bp elevated - cont med as [...] cr stable, cont meds as dir Hyperlipidemia 38288209 E78.2 ldl ~ stable - cont statin as dir Gastroesop hageal reflux disease 506185207 K21.9 cont ppi as dir as per GI - no evidence of bashir's 2.21 egdpt requested refill - rx printed so it could be sent to [facility] Hemochromatosis 30225139 6 E83.119 had recent liver mri & echo / pending cardiac mri, cont f/u c hem/onc 3.24 - stable, cont phlebotomy monthly, next ov c hem/onc 4.24 [id number] Giancarlo Ayon MD Main Office [address], [place] [address] 03/05/2024 08:25:30 03/05/2024 09:41:27 Adult health examination 964046485 Z00.00 colon utd Hemochromatosis 69891435 6 E83.119 had recent liver mri & echo / pending cardiac mri, cont f/u c hem/onc 8.24 - stable, cont phlebotomy monthly, cont c hem/onc q 6 months Hyperlipidemia 32565128 E78.2 ldl ~ stable - cont statin as dir History of polyp of colon 715727370 Z86.010 next in 5.27 Obstructiv e sleep apnea syndrome 53347195 G47.33 cont cpap, f/u c sleep med as dir Gastroesop hageal reflux disease 151232620 K21.9 cont ppi as dir as per GI - no evidence of bashir's 2.21 egdpt requested refill - rx printed so it could be sent to [facility] 8.24 - stable Essential hypertension 78229336 I10 bp elevated - cont med as [...] meds as dir Impaired f asting glycemia 427016951 R73.01 A1c 5.3 - offered reassuranc e - no evidence of predm, but still encouraged wt loss d/t obesity and ankit Nocturia 243992314 R35.1 Body mass index 30+ - obesity 003944875 E66.01 Z68.38 [id number] Giancarlo Ayon MD Main Office [address] [facility] [address] [place] [place] [address] 07/11/2024 11:14:55 07/11/2024 12:40:39 Fever 523621883 R50.9 offered re-assuran ce both covid and flu testing normal Acute sinusitis 72698950 J01.90 rec mucinex, ns spray, warm washcloth side of neck prnrecomme nd probiotics while on abx Deviated nasal septum 12 3064157 J34.2 [id number] Giancarlo Ayon MD Main Office [address] [facility] [address] [place] [place] [address] 09/05/2024 15:45:40 09/05/2024 16:44:38 Hyperlipidemia 53401881 E78.2 ldl ~ stable - cont statin as dir Essential hypertension 27706781 I10 bp elevated - cont med as [...] meds as dir Deviated nasal septum 12 9959239 J34.2 pending see ent 6.25cont ns spray, steam Hemochromatosis 14622405 6 E83.119 had recent liver mri & echo / pending cardiac mri, cont f/u c hem/onc 2.25 - stable, cont phlebotomy monthly, cont c hem/onc q 6 months Impaired f asting glycemia 656580803 R73.01 A1c 5.3 - offered reassuranc e - no evidence of predm, but still encouraged wt loss d/t obesity and ankit Heart murmur 59937707 R0 1.1 [id number] Giancarlo Ayon MD Main Office [address] [facility] [address] [facility] [place] [address] 03/06/2025 08:31:35 03/06/2025 09:27:15 Adult health examination 254075219 Z00.00 colon utd - next 5.27 Essential hypertension 32039935 I10 bp elevated - cont med as [...] lis 5mg qd - rev possible SEs 8.25 - bp & cr stable, cont meds as dir Hyperlipidemia 46778045 E78.2 ldl ~ stable - cont statin as dir Deviated nasal septum 12 3124832 J34.2 pending see ent 6.25cont ns spray, steam 8.25 - seen by ent - no note to review - no need for sx - will attempt to get note Hemochromatosis 31222039 6 E83.119 had recent liver mri & echo / pending cardiac mri, cont f/u c hem/onc 8.25 - stable, cont phlebotomy every other month, cont c hem/onc q 6 months Impaired f asting glycemia 640364974 R73.01 A1c 5.2 - offered reassuranc e - no evidence of predm, but still encouraged wt loss d/t obesity and ankit Heart murmur 63199789 R0 1.1 Naveen - your aortic valve is sclerotic (mildly calcified) - which is likely the cause of the murmur I heard - fortunatel y no stenosis, which would be more worrisome. We'll discuss further when I see you for your PE on 03.06.25- Pat Body mass index 30+ - obesity 172016799 E66.01 Z68.38 Eczema 94327198 L30.9 seen by derm - cont creams as dir 8.25 - stable on dupixent, cont f/u c derm Nocturia 411654196 R35.1 Health Concerns Section Related Observation LastModified by Organization Detai ls LastModified Time None Recorded Concern Status LastModified by Organization Details LastModified Time None Recorded Advance Directives Directive Y: HCP Payers Insurance Date Sequence Insurance Name Policy Number Policy Solares Covered Member ID Solares Member ID Guarantor Name 03/18/2025 1 [facility]: [facility] JAGDEEP [id number] Naveen Mayen [id number] Naveen Mayen Notes Date Note Type Note Provider Name and Address Organization Details Recorded Time 09/28/2023 text/html Hypertension F/UReported by PatientHPIFor associated symptoms, patient reportsno dizziness,no lightheadedness,no chest pain,no shortness of breath,no palpitations,no edema, andno calf pain with exertion. For lifestyle, patient reportsregular exerciseandlimiting/av oiding salt. For medications, patient reportstaking medications as directedandno side effects from medication. oMde Garcia PA-C [address] [address], [place], [address], [facility] 09/28/2023 17:20:55 03/05/2024 text/html Generic HPI TemplateReported by Patient here for annual pe. Mode Garcia PA-C [address] [facility] [address], [place], [address], [facility] [place] 03/05/2024 09:39:37 07/11/2024 text/html Patient reports yesterday around 4pm became very weak, and shivering/cold/diaphor esis - head felt fuzzy -warmed up c [...] jaw/tooth pain reviewed recent labs - nl Mode Garcia PA-C [address] [facility] [address], [place], [address], [facility] 07/11/2024 13:17:05 09/05/2024 text/html Hypertension F/UReported by PatientHPIFor associated symptoms, patient reportsno dizziness,no lightheadedness,no chest pain,no shortness of breath,no palpitations,no edema, andno calf pain with exertion. For lifestyle, patient reportsregular exerciseandlimiting/av oiding salt. For medications, patient reportstaking medications as directedandno side effects from medication. Mode Garcia PA-C [address] [address], [place], [address], [facility] [place] 09/05/2024 20:38:55 03/06/2025 text/html Generic HPI TemplateReported by Patient here for annual pe. Mode Garcia PA-C [address] [facility] [address], [place], [address], [facility] [place] 03/06/2025 09:30:15
== END 2025-06-07 08:02 | disposition home or self-care (01) ==
LOC: HO.BBR 08:01
PROVIDERS: Visit Provider Hospitalist
DX: Z13.89 Encounter for screening for other disorder (principal)